=== PATIENT | female | born 1955 | race Caucasian/White ===

== ENCOUNTER 2023-05-19 06:00 | Inpatient (IN) ==
--- NOTE | 2023-05-02 10:51 | PAT Medication Instructions ---
Medication Instructions Date of Service May 02, 2023 Home Medications atorvastatin 20 mg tablet 20 mg PO PM biotin 1 cap PO QPM duloxetine 30 mg capsule,delayed release sprinkle 30 mg PO QAM fiber 1 cap PO QAM gabapentin 300 mg capsule 300 mg PO TID lisinopril 20 mg-hydrochlorothiazide 25 mg tablet 1 tab PO QAM metformin 500 mg tablet 500 mg PO BID multivitamin 1 tab PO QAM STOP taking 2 weeks before surgery (or as soon as possible if surgery is within 2 weeks) biotin 1 cap PO QPM DO NOT take the morning of surgery fiber 1 cap PO QAM lisinopril 20 mg-hydrochlorothiazide 25 mg tablet 1 tab PO QAM metformin 500 mg tablet 500 mg PO BID multivitamin 1 tab PO QAM Take morning of surgery With a small sip of water, OTHERWISE NOTHING TO EAT OR DRINK AFTER MIDNIGHT: duloxetine 30 mg capsule,delayed release sprinkle 30 mg PO QAM gabapentin 300 mg capsule 300 mg PO TID Take evening before surgery atorvastatin 20 mg tablet 20 mg PO PM gabapentin 300 mg capsule 300 mg PO TID metformin 500 mg tablet 500 mg PO BID Other Notes If you have any questions please call us at [phone] or [phone] or [phone] or [phone]
--- NOTE | 2023-05-08 09:51 | Anesthesiology Consultation ---
Date of Service May 08, 2023 Assessment & Plan (1) Encounter for pre-operative examination: - Check BSG AM DOS - Infectious disease screening: Per assessment on 05/08/23: No known infectious disease contacts or current infectious disease symptoms. No noted recent Covid positive test result. - Sinus tachycardia: HR fluctuating between low 100s-110s at PAT visit 05/08/23. Per patient, noted hx of similar issues when ongoing cancer treatment several years ago. Patient scheduled for upcoming PCP preop evaluation. Note written to PCP regarding sinus tachycardia- Awaiting PCP response + surgeon-ordered PCP preop evaluation (Dr. Irwin Mejias, upcoming appt 04/2023). Chart Review Chart Review: Patient seen in Pre Admission Testing Teaching & Discussion Pre-Anesthesia Teaching/Discussion Notes: Instructed NPO after midnight before surgery,except medications with 15 cc of water. Medication instructions provided according to the [facility] guidelines. History Surgery Operation Date: 05/19/23 10:35 Proposed Procedures p L1-L4 Decompression and Fusion, Spinal Cord Monitoring - Serge Vidal, Height/Weight Height: 5 ft 6 in Weight: 81.5 kg Allergies Allergy/AdvReac Type Severity Reaction Status Date / Time sulfamethoxazole Allergy swelling Verified 05/02/23 09:38 [From Bactrim] of eyes, lips trimethoprim [From Bactrim] Allergy swelling Verified 05/02/23 09:38 of eyes, lips Medications Home Medications Medication Instructions Recorded Confirmed Last Taken atorvastatin 20 mg tablet 20 mg PO PM 05/02/23 05/02/23 Unknown biotin 1 cap PO QPM 05/02/23 05/02/23 Unknown duloxetine 30 mg capsule,delayed 30 mg PO QAM 05/02/23 05/02/23 Unknown release sprinkle fiber 1 cap PO QAM 05/02/23 05/02/23 Unknown gabapentin 300 mg capsule 300 mg PO TID 05/02/23 05/02/23 Unknown lisinopril 20 1 tab PO QAM 05/02/23 05/02/23 Unknown mg-hydrochlorothiazide 25 mg tablet metformin 500 mg tablet 500 mg PO BID 05/02/23 05/02/23 Unknown multivitamin 1 tab PO QAM 05/02/23 05/02/23 Unknown Past Medical History Medical History History of blood transfusion In setting of cancer/treatment- History of COVID-19 01/2023 ([facility])- fever, cough, loss of taste/smell > resolved Abnormal pulmonary function test "Resolved" Hx during cancer treatment Spinal stenosis Osteoarthritis DM type 2 (diabetes mellitus, type 2) History of Hodgkin's lymphoma Dx 2018 HLD (hyperlipidemia) HTN (hypertension) Exercise / Class Metabolic Activity III < 4 Walking/Shop/Light housework (uses cane PRN) Past Surgical History Surgical History PONV (postoperative nausea and vomiting) History of left knee replacement History of right knee joint replacement History of appendectomy History of tonsillectomy and adenoidectomy History of cholecystectomy History of laminectomy x2 History of esophagogastroduodenoscopy (EGD) History of colonoscopy History of vascular access device subsequent removal Past Anesthesia History No Hx of Anesthesia Complications * Sister/mother: post-op confusion History of PONV History of PONV and Hx of Motion Sickness (Remote hx) Social History Smoking Status: Former smoker Do You Dip or Chew Tobacco: No Smoking End Date: Quit 8 years ago Hx Alcohol Use: Yes alcohol intake frequency: holidays/special occasions only Hx Substance Use: No substance use type: does not use Review of Systems Patient denies chest pain, shortness of breath, fever, chills, cough, wheezing, palpitations. Physical Exam Vital Signs VITALS BP 101/55 P 104 TEMP 98.8 SP02 96%RA RESP 16 PHYSICAL Full cervical extension range of motion. Full TMJ range of motion. TMD 4 finger breaths Mallampati Score 3 Dentition: upper/lower partial Lungs: clear throughout to auscultation Cardiac: regular rate and rhythm, no murmurs noted Spine: normal Carotid arteries: negative bruit Extremities: no LE edema Lab Results Anesthesia Preop Results Results Anesthesia Widget: WBC 7.12 K/ul (4.8-10.8) 05/08/23 Hgb 13.4 g/dl (12.0-16.0) 05/08/23 Hct 41.6 % (37.0-47.0) 05/08/23 Plt 310 K/uL (130-400) 05/08/23 Na 135 mmol/L (136-145) L 01/11/24 K 3.9 mmol/L (3.5-5.1) 05/08/23 Cl 101 mmol/L (98-107) 05/08/23 CO2 26 mmol/L (21-32) 05/08/23 BUN 18 mg/dl (6-23) 05/08/23 Creat 0.82 mg/dl (0.6-1.2) 05/08/23 Glucose Level 98 mg/dl (70-99(Fasting)) 05/08/23 PT 10.6 Seconds (9.0-12.0) 05/08/23 PTT 25 Seconds (21-31) 05/08/23 INR 1.0 (0.9-1.1) 05/08/23 HA1c 5.7 % (4.5-5.6) H 05/08/23 Urine Color Yellow 05/08/23 Urine Appearance Clear (Clear) 05/08/23 Urine pH 6.5 (4.5-7.5) 05/08/23 Urine Specific [place] 1.010 (1.000-1.030) 05/08/23 Urine Protein Negative (Negative) 05/08/23 Urine Glucose (UA) Negative (Negative) 05/08/23 Urine Ketones Negative (Negative) 05/08/23 Urine Blood Negative (Negative) 05/08/23 Urine Nitrite Negative (Negative) 05/08/23 Urine Bilirubin Negative (Negative) 05/08/23 Urine Urobilinogen Negative (Negative) 05/08/23 Urine Leukocyte Esterase Negative (Negative) 05/08/23 Blood Type O Negative 05/08/23 Antibody Screen NEGATIVE 05/08/23 Testing Electrocardiogram Date: 05/08/23 ST at 108bpm. "Otherwise normal ECG" Chest X-Ray Date: 05/08/23 FINDINGS: Lung volumes are normal. Lungs are clear. There is no pneumothorax or pleural effusion. Cardiac size is normal. Mediastinal contours are normal. There is no evidence for pulmonary edema. IMPRESSION: No acute cardiopulmonary findings.
[~2023-05-19 06:00] MED LIST: ACETAMINOPHEN 500 MG TAB PO SCH; GABAPENTIN 300 MG CAP PO SCH; LR 15ML/HR IV SCH; LR 60ML/HR IV SCH; ceFAZolin 2000MG 2,000 MG/15 ML SYR IV SCH
--- OUTSIDE RECORDS SUMMARY | 2023-05-19 06:05 | External Medical Summary | Continuity of Care Document ---
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 Josias Mejias MD Onset: 10/27/2019 Neurogenic claudication Irwin Mejias MD Onset: 0 10/27/2019 Hodgkin's disease of extrano ger AND/OR solid organ site Irwin Mejias MD Onset: 11/06/2020 Anxiety state NAZARIO Workman Onset: 04/28 Type 2 diabetes mellitus NAZARIO Workman On set: 05/14/2023 Hodgkin's disease (clinical) Irwin Mejias MD Ons et: 11/21/2022 Social History Type Date Description Comments Sex Unknown Cigarette Use 12/09/2016 Quit - Age 58 Tobacco Use Reviewed: 10/09/16 Never Smoked Cigars Tobacco Use Reviewed: 10/09/16 Never Smoked A Pipe Smoking Status Reviewed: 05/14/23 Never Smoked A Pipe Smokeless Tobacco 10/09/2016 Never Used Smokeless To bacco ETOH Use Denies alcohol use Recreational Drug Use Denies Drug Use Exercise Type/Frequency Does not exercise Allergies and adverse reactions Active Allergies Criticality Reaction | Severity Comments Date Bactrim Unable to assess criticality Urticaria | Moderate 12/27/2016 Inactive Allergies NKDA Unable to assess criticality 06/06/2010 Medications Active Medications SIG Qnty Indications Order ing Provider Date [id number] Capsules Take 1 Capsule By Mouth Every Night AT Bedtime For 1 Week, Then 1 Capsule Twice A Day For 1 Week, Then 1 Capsule Three Times A Day Thereafter 90caps M48.062 Irwin Mejias MD 11/21/[id number] Part Take 1 Capsule By Mouth Once Daily 30caps F41.9 Irwin Mejais MD 11/21/2022 Lorazepam0.5mg Tablets 1/2 - 1 by mouth every 6 hours as needed for travel anxiety 10tabs F41.9 Micah Jane MD 11/06/2020 Atorvastatin [id number] Tablets Take One Tablet By Mouth Every Night 90tabs E11.65 Irwin Mejias MD 05/09/2020 Lisinopril-Hydrochlo [id number] Tablets Take 1 Tablet By Mouth Once Daily 90tabs I10 Irwin Mejias MD 02/24/2020 Metformin [id number] Tablets Take 1 Tablet By Mouth Twice Daily 180tabs E11.65 Irwin Mejias MD 10/27/2019 Multivitamin AdultTablets 1 by mouth every day Unknown Medications Administered in Office Medication SIG Qnty Indications Ordering Provider Date Injection Kenalog 10 MG [facility] [id number] Irwin Mejias MD 08/16 Influ A (H1N1) VaccineInjection Irwin Mejias MD 04/13/2009 Immunizations CPT Code Status Date Vaccine Lot # [id number] Given 02/20/2022 Moderna Sars-Co v-2 (Covid-19) Vaccine, BiValent Booster [id number] Given 02/20/2022 Influenza Vaccine High Do se 0.5ML Age 65 & > [id number] 60182 Given 09/16/2021 Moderna Covid-1 9 Vaccine 50mcg Booster-EMR Doc Only [id number] Given 03/06/2021 Moderna Sars-Co v-2 (Cov-19) vacc,100 mcg/ 0.5 mL 12Y+EMR Doc Only [id number] Given 06/23/2020 Moderna Sars-Co v-2 (Cov-19) vacc,100 mcg/ 0.5 mL 12Y+EMR Doc Only [id number] 33093 Given 05/26/2020 Moderna Sars-Co v-2 (Cov-19) vacc,100 mcg/ 0.5 mL 12Y+EMR Doc Only [id number] 11563 Given 01/27/2020 Influenza Vaccine High Do se 0.5ML Age 65 & > [id number] 66280 Given 10/27/2019 Pneumococcal Vaccine/Pneu movax 23 [id number] 20499 Given 10/28/2018 Pneumococcal Conjugate-Pr evnar 13 [id number] 44904 Given 03/17/2017 Influenza Virus Vaccine, Quadrivalent, Im Use [id number] 54299 Given 01/10/2015 Influenza Virus Vaccine, Quadrivalent, Im Use 52141 Given 03/10/2013 Influenza Vac, Split 3 Yr s And Up [id number] 64048 Given 03/11/2012 Influenza Vac, Split 3 Yr s And Up [id number] Refused 10/28/2018 Pneumococcal Conjugate-Pr evnar 13 Vital Signs Date Vital Result Comment 05/14/2023 11:17am BP Systolic 122 mmHg BP Diastolic 84 mmHg Body Temperature 97.3 F Heart Rate 86 /min Respiratory Rate 16 /min Weight 180.00 lb Weight 81.648 kg O2 % BldC Oximetry 99 % 12/25/2022 9:59am BP Systolic 116 mmHg BP Diastolic 80 mmHg Heart Rate 104 /min Respiratory Rate 18 /min Weight 174.00 lb Weight 78.926 kg Height 65.5 inches 5'5.50" BMI (Body Mass Index) 28.5 kg/m2 O2 % BldC Oximetry 99 % [place] Body Weight 125 lb Results Test Acquired Date Facility Test Result H/L Range N ote General Health Panel 05/07/2023 [facility] [address] [place] [address] [phone] TSH 1.37 uIU/mL 0.50-6.00 Comp. Met 05/07/2023 [facility] [address] [place], [place] [id number] [phone] Glucose 109 mg/dL 70-110 BUN 19 mg/dL 6-25 Creatinine 0.9 mg/dL 0.5-1.2 Sodium 138 mEq/L 135-145 Potassium 4.8 mEq/L 3.5-5.0 Chloride 99 mEq/L 95-107 Co-2 26 mEq/L 24-31 Alk Phos 100 IU/L 43-122 Alt(SGPT) 22 IU/L 10-40 Ast(Sgot) 21 IU/L 3-42 T.Bilirubin 0.6 mg/dL 0.1-1.3 Calcium 10.1 mg/dL 8.5-10.6 Tot.Protein 7.4 g/dL 5.8-8.0 Albumin 4.7 g/dL 3.0-5.2 Globulin 2.7 g/dL 2.0-3.4 GFR 66 ML/MIN/1.73SQM >60 Lipid 05/07/2023 [facility] [address] [place] [address] [phone] Cholesterol 127 mg/dL 0-200 1 Triglyceride 151 mg/dL High 0-150 2 HDLD 44 mg/dL See Comment 3 Measured LDL 79 mg/dL 0-130 4 Calc VLDL 30.2 mg/dL See Comment 5 Chol/HDL 2.9 RATIO See Comment 6 Non-HDL 83 mg/dL See Comment 7 Hba1c 05/07/2023 [facility] [address] [place] [address] [phone] A1c 5.60 % 4.70-6.50 8 CBC No Diff 05/07/2023 [facility] [address] [place], [place] [id number] [phone] WBC 8.1 10^3/M3 3.1-9.2 RBC 4.99 10^6/M3 3.70-5.50 HGB 14.2 GR/DL 11.5-16.1 HCT 42.5 % 34.5-47.8 MCV 85.2 CUMICR 82.6-95.8 MCH 28.5 PICOGR 27.9-32.9 MCHC 33.5 % 32.6-35.4 RDW 16.4 % High 11.4-14.6 PLT 307 10^3/M3 140-350 MPV 8.0 CUMICR 7.0-10.6 Manual Diff 05/07/2023 [facility] [address] [place] [address] [phone] Seg 51 45-75 Lymph 35 20-45 [place]win 13 High 0-10 Eosin 1 0-6 Baso 1 0-2 RBC Morphology NORMAL Microalbumin Urine 05/07/2023 [facility] [address] [place], [place] [id number] [phone] Urine Creat 31 mg/dL Comment Microalbumin <0.7 mg/dL 0.0-1.8 9 ug/mgCREATININE COMMENT ug/mg Low 0-29 10 Xray 01/06/2023 [facility] [address] [place] [address] [phone] Mammography Screening Bilateral 11/13/2022 pending Comp. Met 11/13/2022 [facility] [address] [place] [address] [phone] Glucose 89 mg/dL 70-110 BUN 18 mg/dL 6-25 Creatinine 0.8 mg/dL 0.5-1.2 Sodium 137 mEq/L 135-145 Potassium 4.1 mEq/L 3.5-5.0 Chloride 99 mEq/L 95-107 Co-2 26 mEq/L 24-31 Alk Phos 89 IU/L 43-122 Alt(SGPT) 18 IU/L 10-40 Ast(Sgot) 17 IU/L 3-42 T.Bilirubin 0.7 mg/dL 0.1-1.3 Calcium 9.7 mg/dL 8.5-10.6 Tot.Protein 6.9 g/dL 5.8-8.0 Albumin 4.6 g/dL 3.0-5.2 Globulin 2.3 g/dL 2.0-3.4 GFR 76 ML/MIN/1.73SQM >60 Hba1c 11/13/2022 [facility] [address] [place] [address] [phone] A1c 5.50 % 4.70-6.50 11 Lipid 11/13/2022 [facility] [address] [place] [address] [phone] Cholesterol 115 mg/dL 0-200 12 Triglyceride 104 mg/dL 0-150 13 HDLD 53 mg/dL See Comment 14 Measured LDL 54 mg/dL 0-130 15 Calc VLDL 20.8 mg/dL See Comment 16 Chol/HDL 2.2 RATIO See Comment 17 Non-HDL 62 mg/dL See Comment 18 Laboratory test finding 11/13/2022 [facility] [address] [place] [address] [phone] FRT4 1.23 ng/dL 0.75-1.54 CBC No Diff 11/13/2022 [facility] [address] [place] [address] [phone] WBC 7.2 10^3/M3 3.1-9.2 RBC 4.71 10^6/M3 3.70-5.50 HGB 13.7 GR/DL 11.5-16.1 HCT 39.7 % 34.5-47.8 MCV 84.4 CUMICR 82.6-95.8 MCH 29.1 PICOGR 27.9-32.9 MCHC 34.4 % 32.6-35.4 RDW 16.4 % High 11.4-14.6 PLT 217 10^3/M3 140-350 MPV 7.7 CUMICR 7.0-10.6 Manual Diff 11/13/2022 [facility] [address] [place] [address] [phone] Seg 57 45-75 Lymph 34 20-45 Gladwin 8 0-10 Eosin 1 0-6 Baso 0 0-2 General Health Panel 11/13/2022 [facility] [address] [place] [address] [phone] TSH 1.14 uIU/mL 0.50-6.00 1 CHOLESTEROL Less than 200mg/dl Low risk 201-239 mg/dl Borderline risk Equal to or greater 240mg/dl High risk 2 TRIGLYCERIDES Less than 150mg/dl Normal 150-199mg/dl Borderline 200-499mg/dl High Greater than 500mg/dl Very High 3 HDL <40mg/dl Elevated Risk 41-59mg/dl Risk >=60mg/dl Least Risk 4 LDL <100mg/dl Optimal 100-129mg/dl Near Optimal 130-159mg/dl Borderline High 160-189mg/dl High >=190 Very High 5 VLDL Less than 30mg/dl Normal 6 CHOL/HDL <4.0 Optimal 4.0-5.0 Borderline >6.0 High Risk 7 NON-HDL 30mg/dl higher than LDL Target 8 MEAN GLUCOSE IN mg/d L/A1c% POOR CONTROL FAIR CONTROL GOOD CONTROL EXCELLENT CONTROL 360-14 210-9 180-8 120-6 330-13 150-7 90-5 300-12 270-11 240-10 9 *[facility] USES MICROALBUMIN/CREATINE RATIO : *<30 ug/mg CREATININE IS CLASSIFIED NORMAL *30-300 ug/mg CREATININE IS CLASSIFIED CLINICAL MICROALBUMINURIA *>300 ug/mg CREATININE IS CLASSIFIED CLINICAL ALBUMINURIA CLASSIFICATION OF A PATIENT SHOULD BE BASED ON TWO OF THREE ABNORMAL RESULTS COLLECTED WITHIN A 3 TO 6 MONTH TIME FRAME* 10 CANNOT CALCULATE RATIO WHEN MALB < 0.7 11 MEAN GLUCOSE IN mg/d L/A1c% POOR CONTROL FAIR CONTROL GOOD CONTROL EXCELLENT CONTROL 360-14 210-9 180-8 120-6 330-13 150-7 90-5 300-12 270-11 240-10 12 CHOLESTEROL Less than 200mg/dl Low risk 201-239 mg/dl Borderline risk Equal to or greater 240mg/dl High risk 13 TRIGLYCERIDES Less than 150mg/dl Normal 150-199mg/dl Borderline 200-499mg/dl High Greater than 500mg/dl Very High 14 HDL <40mg/dl Elevated Risk 41-59mg/dl Risk >=60mg/dl Least Risk 15 LDL <100mg/dl Optimal 100-129mg/dl Near Optimal 130-159mg/dl Borderline High 160-189mg/dl High >=190 Very High 16 VLDL Less than 30mg/dl Normal 17 CHOL/HDL <4.0 Optimal 4.0-5.0 Borderline >6.0 High Risk 18 NON-HDL 30mg/dl higher than LDL Target Procedures Date Code Description Status 05/07/2023 16649 Venipuncture Routine Complet ed 01/01/2023 [id number] Mammogram Completed 11/21/2022 3078F PVRP Diastolic BP <80 mmHg C ompleted 11/21/2022 3074F PVRP Systolic BP <130 mmHg C ompleted 11/21/2022 3044F PVRP HGB-A1c <7.0% Completed 11/21/2022 1101F PT SCR Future Fall Risk, No Fall Or 1 W/Out Injury Completed 11/21/2022 1090F Presence/Absence Urinary Inc ontinence Assessed Completed 11/13/2022 51853 Venipuncture Routine Complet ed 02/13/2017 [id number] Colonoscopy Completed Medical Devices Description No Information Available Encounters Type Date Location Provider Dx Diagnosis Office Visit 05/14/2023 11:30a NAZARIO Desir M48.062 Spinal stenosis, lumbar region with neurogenic claudication Z01.818 Encounter for other preprocedural examination I10 Essential (primary) hypertension E11.9 Type 2 diabetes anjel itus without complications F41.9 Anxiety disorder, un specified C81.90 Hodgkin lymphoma, un specified, unspecified site 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, chewing tobacco, in remission Office Visit 12/25/2022 10:00a Carl Mejias MD M4 8.062 Spinal stenosis, lumbar region with neurogenic claudication F41.9 Anxiety disorder, un specified Office Visit 11/21/2022 9:45a Carl Mejias MD I10 Essential (primary) hypertension M48.062 Spinal stenosis, lum bar region with neurogenic claudication C81.90 Hodgkin lymphoma, un specified, unspecified site B02.23 Postherpetic polyneu ropathy E11.9 Type 2 diabetes anjel itus without complications F41.9 Anxiety disorder, un specified Z00.01 Encounter for genera l adult medical exam w abnormal findings Assessments Date Code Description Provider 05/14/2023 M48.062 Spinal stenosis, lumbar region with neurogenic claudication NAZARIO Workman 05/14/2023 Z01.818 Encounter for other preproce dural examination NAZARIO Workman 05/14/2023 I10 Essential (primary) hyperten antolin NAZARIO Workman 05/14/2023 E11.9 Type 2 diabetes mellitus without complications NAZARIO Workman 05/14/2023 F41.9 Anxiety disorder, unspecifie d NAZARIO Workman 05/14/2023 C81.90 Hodgkin lymphoma , unspecified, unspecified site NAZARIO Workman 05/14/2023 F17.221 Nicotine depende nce, chewing tobacco, in remission NAZARIO Workman 05/07/2023 I10 Essential (primary) pat Mejias MD 05/07/2023 I10 Essential (primary) pat Henry Nurse 05/07/2023 E11.9 Type 2 diabetes mellitus without complications Irwin Mejias MD 05/07/2023 E11.9 Type 2 diabetes mellitus without complications Carl Nurse 12/25/2022 M48.062 Spinal stenosis, lumbar region with neurogenic claudication Irwin Mejias MD 12/25/2022 F41.9 Anxiety disorder, unspecifie d Irwin Mejias MD 11/21/2022 I10 Essential (primary) pat Mejias MD 11/21/2022 M48.062 Spinal stenosis, lumbar region with neurogenic claudication Irwin Mejias MD 11/21/2022 C81.90 Hodgkin lymphoma , unspecified, unspecified site Irwin Mejias MD 11/21/2022 B02.23 Postherpetic polyneuropathy Irwin Mejias MD 11/21/2022 E11.9 Type 2 diabetes mellitus without complications Irwin Mejias MD 11/21/2022 F41.9 Anxiety disorder, unspecifie d Irwin Mejias MD 11/21/2022 Z00.01 Encounter for [facility] adult medical examination with abnormal findings Irwin Mejias MD 11/13/2022 E11.9 Type 2 diabetes mellitus without complications Irwin Mejias MD 11/13/2022 E11.9 Type 2 diabetes mellitus without complications Carl Nurse 11/13/2022 E05.90 Thyrotoxicosis, unspecified without thyrotoxic crisis or storm Irwin Mejias MD 11/13/2022 E05.90 Thyrotoxicosis, unspecified without thyrotoxic crisis or storm Carl Nurse Plan of Treatment 05/14/2023 - NAZARIO Workman* M48.062 Spinal stenosis, lumbar region with neurogenic claudication* Comments:* -Proposed procedure is L1-L4 Decompression and Fusion * Z01.818 Encounter for other preprocedural examination* Comments:* - After reviewing patient's history, performing a thorough H&P and reviewing labs and EKG,patient is at an acceptable risk of proposed procedure scheduled on 05/19/[address] Vidal at [facility] in [place], [place] * Follow up:* as needed * I10 Essential (primary) hypertension* Comments:* 1. Controlled on current medications. 2. Continue medications as prescribed. 3- Increases patient's risk for Surgical Procedure. * E11.9 Type 2 diabetes mellitus without complications* Comments:* 1- A1C 5.7% FBG 98 2- Well controlled on current medication. 3- Continue medications as pr escribed. 4- Increases patient's risk for poor healing after Surgical Procedure. * F41.9 Anxiety disorder, unspecified* Comments:* 1- Controlled on current medication 2- Continue medication as prescribed 3- Advised thatif patient would like to come off medication to wait until after surgery and recovery, then re-address the idea of coming of medication and come up with a schedule for doing so. Patient verbalized understanding. * C81.90 Hodgkin lymphoma, unspecified, unspecified site* Comments:* 1- Currently in remission 2- Followed by Oncology Annually. 3- No symptoms at this time. 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
--- OUTSIDE RECORDS SUMMARY | 2023-05-19 06:06 | External Medical Summary | Continuity of Care Document ---
Author Name Unknown Organization [facility] Address [address] [place] [address] Phone [phone] Care Team Providers Care Services Engineer Name Role Phone Douglas Simon MD Care Team Information Receive r [phone] Problems Active Problems Provider Date Benign essential [...] SIG Qnty Indications Order ing Provider Date [id number] Capsules Take 1 Capsule By Mouth Every Night AT Bedtime For 1 Week, Then 1 Capsule Twice A Day For 1 Week, Then 1 Capsule Three Times A Day Thereafter 90caps M48.062 Irwin Mejias MD 11/21/[id number] Part Take 1 Capsule By Mouth Once Daily 30caps F41.9 Irwin Mejias MD 11/21/2022 Lorazepam0.5mg Tablets 1/2 - 1 by mouth every 6 hours as needed for travel anxiety 10tabs F41.9 Micah Jane MD 11/06/2020 Atorvastatin [id number] Tablets Take One Tablet By Mouth Every Night 90tabs E11.65 Irwin Mejias MD 05/09/2020 Lisinopril-Hydrochlo [id number] Tablets Take 1 Tablet By Mouth Once Daily 90tabs I10 Irwin Mejias MD 02/24/2020 Metformin [id number] Tablets Take 1 Tablet By Mouth Twice Daily 180tabs E11.65 Irwin Mejias MD 10/27/2019 Multivitamin AdultTablets 1 by mouth every day Unknown Medications Administered in Office Medication SIG Qnty Indications Ordering Provider Date Injection Kenalog 10 MG [facility] [id number] Irwin Mejias MD 08/16 Influ A (H1N1) VaccineInjection Irwin Mejias MD 04/13/2009 Immunizations CPT Code Status Date Vaccine Lot # [id number] Given 02/20/2022 Moderna Sars-Co v-2 (Covid-19) Vaccine, BiValent Booster [id number] Given 02/20/2022 Influenza Vaccine High Do se 0.5ML Age 65 & > [id number] 15834 Given 09/16/2021 Moderna Covid-1 9 Vaccine 50mcg Booster-EMR Doc Only [id number] Given 03/06/2021 Moderna Sars-Co v-2 (Cov-19) vacc,100 mcg/ 0.5 mL 12Y+EMR Doc Only [id number] Given 06/23/2020 Moderna Sars-Co v-2 (Cov-19) vacc,100 mcg/ 0.5 mL 12Y+EMR Doc Only [id number] 36764 Given 05/26/2020 Moderna Sars-Co v-2 (Cov-19) vacc,100 mcg/ 0.5 mL 12Y+EMR Doc Only [id number] 57116 Given 01/27/2020 Influenza Vaccine High Do se 0.5ML Age 65 & > [id number] 57170 Given 10/27/2019 Pneumococcal Vaccine/Pneu movax 23 [id number] 02750 Given 10/28/2018 Pneumococcal Conjugate-Pr evnar 13 [id number] 45862 Given 03/17/2017 Influenza Virus Vaccine, Quadrivalent, Im Use [id number] 16162 Given 01/10/2015 Influenza Virus Vaccine, Quadrivalent, Im Use 48281 Given 03/10/2013 Influenza Vac, Split 3 Yr s And Up [id number] 76871 Given 03/11/2012 Influenza Vac, Split 3 Yr s And Up [id number] Refused 10/28/2018 Pneumococcal Conjugate-Pr evnar 13 Vital [...] kg/m2 O2 % BldC Oximetry 99 % [place] Body Weight 125 lb Results Test Acquired Date Facility Test Result H/L Range N ote General Health Panel 05/07/2023 [facility] [address] [place] [address] [phone] TSH 1.37 uIU/mL 0.50-6.00 Comp. Met 05/07/2023 [facility] [address] [place], [place] [id number] [phone] Glucose 109 mg/dL 70-110 BUN 19 mg/dL [...] 2.0-3.4 GFR 66 ML/MIN/1.73SQM >60 Lipid 05/07/2023 [facility] [address] [place] [address] [phone] Cholesterol 127 mg/dL 0-200 1 Triglyceride 151 mg/dL High 0-150 2 HDLD 44 mg/dL See Comment 3 Measured LDL 79 mg/dL 0-130 4 Calc VLDL 30.2 mg/dL See Comment 5 Chol/HDL 2.9 RATIO See Comment 6 Non-HDL 83 mg/dL See Comment 7 Hba1c 05/07/2023 [facility] [address] [place] [address] [phone] A1c 5.60 % 4.70-6.50 8 CBC No Diff 05/07/2023 [facility] [address] [place], [place] [address] [phone] WBC 8.1 10^3/M3 3.1-9.2 RBC 4.99 10^6/M3 3.70-5.50 HGB 14.2 GR/DL 11.5-16.1 HCT 42.5 % 34.5-47.8 MCV 85.2 CUMICR 82.6-95.8 MCH 28.5 PICOGR 27.9-32.9 MCHC 33.5 % 32.6-35.4 RDW 16.4 % High 11.4-14.6 PLT 307 10^3/M3 140-350 MPV 8.0 CUMICR 7.0-10.6 Manual Diff 05/07/2023 [facility] [address] [place] [address] [phone] Seg 51 45-75 Lymph 35 20-45 Kimball 13 High 0-10 Eosin 1 0-6 Baso 1 0-2 RBC Morphology NORMAL Microalbumin Urine 05/07/2023 [facility] [address] [place], [place] [id number] [phone] Urine Creat 31 mg/dL Comment Microalbumin <0.7 mg/dL 0.0-1.8 9 ug/mgCREATININE COMMENT ug/mg Low 0-29 10 [facility]ray [facility]20[facility] [address] [place] [address] [phone] Mammography Screening Bilateral 11/13/2022 pending Comp. Met 11/13/2022 [facility] [address] [place] [address] [phone] Glucose 89 mg/dL 70-110 BUN 18 mg/dL [...] 2.0-3.4 GFR 76 ML/MIN/1.73SQM >60 Hba1c 11/13/2022 [facility] [address] [place] [address] [phone] A1c 5.50 % 4.70-6.50 11 Lipid 11/13/2022 [facility] [address] [place] [address] [phone] Cholesterol 115 mg/dL 0-200 12 Triglyceride 104 mg/dL 0-150 13 HDLD 53 mg/dL See Comment 14 Measured LDL 54 mg/dL 0-130 15 Calc VLDL 20.8 mg/dL See Comment 16 Chol/HDL 2.2 RATIO See Comment 17 Non-HDL 62 mg/dL See Comment 18 Laboratory test finding 11/13/2022 [facility] [address] [place] [address] [phone] FRT4 1.23 ng/dL 0.75-1.54 CBC No Diff 11/13/2022 [facility] [address] [place] [address] [phone] WBC 7.2 10^3/M3 3.1-9.2 RBC 4.71 10^6/M3 3.70-5.50 HGB 13.7 GR/DL 11.5-16.1 HCT 39.7 % 34.5-47.8 MCV 84.4 CUMICR 82.6-95.8 MCH 29.1 PICOGR 27.9-32.9 MCHC 34.4 % 32.6-35.4 RDW 16.4 % High 11.4-14.6 PLT 217 10^3/M3 140-350 MPV 7.7 CUMICR 7.0-10.6 Manual Diff 11/13/2022 [facility] [address] [place] [address] [phone] Seg 57 45-75 Lymph 34 20-45 Kimball 8 0-10 Eosin 1 0-6 Baso 0 0-2 General Health Panel 11/13/2022 [facility] [address] [place] [address] [phone] TSH 1.14 uIU/mL 0.50-6.00 1 CHOLESTEROL Less [...] 150-7 90-5 300-12 270-11 240-10 9 *[facility] USES MICROALBUMIN/CREATINE RATIO : [...] Target Procedures Date Code Description Status 05/07/2023 31729 Venipuncture Routine Complet ed 01/01/2023 06174853 Mammogram Completed 11/21/2022 3078F PVRP Diastolic BP <80 mmHg C ompleted 11/21/2022 3074F PVRP Systolic BP <130 mmHg C ompleted 11/21/2022 3044F PVRP HGB-A1c <7.0% Completed 11/21/2022 1101F PT SCR Future Fall Risk, No Fall Or 1 W/Out Injury Completed 11/21/2022 1090F Presence/Absence Urinary Inc ontinence Assessed Completed 11/13/2022 68484 Venipuncture Routine Complet ed 02/13/2017 40209015 Colonoscopy Completed Medical Devices Description No Information [...] Irwin Mejias MD 11/21/2022 Z00.01 Encounter for [facility] adult medical examination with abnormal findings Irwin [...] scheduled on 05/19/[address] Vidal at [facility] in [place], [place] * Follow up:* as needed * [...]
[2023-05-19] MEDS ORDERED: DexMEDEtomidine HCL IV 100 MCG/ML VIAL IV ONE (06:59)
[2023-05-19] MEDS ORDERED: FAMOTIDINE/PF 20 MG/2 ML VIAL IV ONE (06:59)
[2023-05-19] MEDS ORDERED: ONDANSETRON INJ 2 MG/ML 2 ML VIAL IV PRN ×2 (07:05→11:17)
[2023-05-19] MEDS ORDERED: ePHEDrine sulfate 50 MG/ML AMP IV PRN (07:05)
[2023-05-19] MEDS ORDERED: ATROPINE SULFATE 0.1 MG/ML 10ML SYR IV PRN (07:05)
[2023-05-19] MEDS ORDERED: fentaNYL citrate PF 100 MCG/2 ML VIAL IV PRN (07:05)
[2023-05-19] MEDS ORDERED: HYDROmorphone INJ 2 MG/ML SYR/VIAL IV PRN (07:05)
[2023-05-19] MEDS ORDERED: fentaNYL citrate PF 100 MCG/2 ML VIAL ONE (07:09)
[2023-05-19] MEDS ORDERED: HYDROmorphone INJ 2 MG/ML SYR/VIAL ONE (07:09)
[2023-05-19] MEDS ORDERED: MIDAZOLAM HCL 1 MG/ML 2ML VIAL ONE (07:09)
[2023-05-19] MEDS ORDERED: BUPIVACAINE/EPINEPHRINE 0.5% MPF 1:200,000 30 ML VIAL ONE (07:24)
[2023-05-19] MEDS ORDERED: ceFAZolin 330 MG/ML 1 GM VIAL ONE (07:24)
--- NOTE | 2023-05-19 07:38 | History & Physical Bridge Note ---
Date of Service May 19, 2023 History & Physical Bridge Note I have examined the patient, reviewed the History & Physical and in the interval since the performance of the History & Physical I have noted the following changes of clinical significance: no changes noted
--- NOTE | 2023-05-19 07:39 | History & Physical Report ---
Date of Service May 19, 2023 Assessment & Plan (1) Neurogenic claudication due to lumbar spinal stenosis: Plan: L1-L4 decompression and fusion History of Present Illness Chief Complaint: Back and leg pain Primary Care Provider: Irwin Mejias MD This is a 67-year-old female who presents with chronic persistent back and leg pain after failing course of nonoperative care is here for surgical intervention. Allergies Allergy/AdvReac Type Severity Reaction Status Date / Time sulfamethoxazole Allergy swelling Verified 05/19/23 06:40 [From Bactrim] of eyes, lips trimethoprim [From Bactrim] Allergy swelling Verified 05/19/23 06:40 of eyes, lips Home Medications Medication Instructions Recorded Confirmed Type atorvastatin 20 mg tablet 20 mg PO PM 05/02/23 05/19/23 History biotin 1 cap PO QPM 05/02/23 05/19/23 History duloxetine 30 mg capsule,delayed 30 mg PO QAM 05/02/23 05/19/23 History release sprinkle fiber 1 cap PO QAM 05/02/23 05/19/23 History gabapentin 300 mg capsule 300 mg PO TID 05/02/23 05/19/23 History lisinopril 20 1 tab PO QAM 05/02/23 05/19/23 History mg-hydrochlorothiazide 25 mg tablet metformin 500 mg tablet 500 mg PO BID 05/02/23 05/19/23 History multivitamin 1 tab PO QAM 05/02/23 05/19/23 History Past Med/Surg History Medical History History of blood transfusion In setting of cancer/treatment- 2017/2018 History of COVID-19 01/2023 ([facility])- fever, cough, loss of taste/smell > resolved Abnormal pulmonary function test "Resolved" Hx during cancer treatment Spinal stenosis Osteoarthritis DM type 2 (diabetes mellitus, type 2) History of Hodgkin's lymphoma Dx 2018 HLD (hyperlipidemia) HTN (hypertension) Surgical History PONV (postoperative nausea and vomiting) History of left knee replacement History of right knee joint replacement History of appendectomy History of tonsillectomy and adenoidectomy History of cholecystectomy History of laminectomy x2 History of esophagogastroduodenoscopy (EGD) History of colonoscopy History of vascular access device subsequent removal Social History Smoking Status: Former smoker Smoking End Date: Quit 8 years ago; Second Hand Exposure: No; Do You Dip or Chew Tobacco: No; Tobacco Cessation Education Requested by Patient: No Hx Alcohol Use: Yes Hx Substance Use: No Preferred Language: Sudanese Communication Ability: Effective X Ray Consultant Required: No Beliefs That Will Affect Care: None and Hindu Hindu Beliefs: Gnosticist Current Living Situation: Alone Other Information That Helps Us Care for You: No Feels Safe at Home: Yes Safety Concerns: Feels Safe At This Time Assistive Devices: Cane, Denture - Upper, Denture - Lower and Glasses Assistive Devices Comment: upper/lower partials Physical Exam Physical Exam: Patient is alert and oriented Heart regular rhythm Lungs clear Results & Data Results & Data Vital Signs (Past 12 Hours) Vital Signs Temp Pulse Resp BP Pulse Ox O2 Del Method 05/19/23 06:46 37.1 C 97 H 20 161/73 H 100 Room Air
[2023-05-19] MEDS ORDERED: ONDANSETRON INJ 2 MG/ML 2 ML VIAL ONE (08:17)
[2023-05-19] MEDS ORDERED: DEXAMETHASONE SOD INJ 4 MG/ML VIAL ONE (08:17)
[2023-05-19] MEDS ORDERED: LIDOCAINE 2% 2 ML VIAL/AMP(20MG/ML) INFIL ONE (08:17)
[2023-05-19] MEDS ORDERED: ROCURONIUM BROMIDE 10 MG/ML 5 ML VIAL IV ONE (08:17)
[2023-05-19] MEDS ORDERED: PHENYLEPHRINE 100MCG/ML 10ML SYR IV ONE ×2 (08:17→09:46)
[2023-05-19] MEDS ORDERED: LARYING-O-JET KIT (LTA) ONE (08:17)
[2023-05-19] MEDS ORDERED: diphenhydrAMINE 50 MG/ML VIAL ONE (08:17)
[2023-05-19] MEDS ORDERED: PROPOFOL IV EMULSION 10 MG/ML 20 ML VIAL IV ONE (08:17)
[2023-05-19] MEDS ORDERED: FLOSEAL HEMOSTATIC MATRIX 10ML TOP ONE (08:43)
[2023-05-19] MEDS ORDERED: SUGAMMADEX SODIUM 200 MG/2 ML VIAL IV ONE (09:56)
--- NOTE | 2023-05-19 10:04 | Operative Report ---
Post Operative Report Pre & Post Diagnosis Operation Date: 05/19/23 07:45 Pre-Op Diagnosis: Lumbar Region Spondylolisthesis, Spinal Stenosis Post-Op Diagnosis: Lumbar Region Spondylolisthesis, Spinal Stenosis I identified the patient and participated in the time-out.: Yes Procedure Operation Date: 05/19/23 07:45 Actual Procedures #1 lumbar decompression bilaterally facetectomies and foraminotomies L1-L2, L2- L3 and L3-L4. #2 posterior spinal fusion L2 1 to L4. #3 placement posterior segmental instrumentation L1-L4. #4 interbody fusion L4-L3 L3-L4. #5 placement of Spira 11 by 26 mm at L2-L3 and 12 x 26 mm at L3-L4. #6 placement locally harvested morselized autograft in the posterior gutters. #7 placement of I factor in the interbody space and infuse collagen sponge combined with Koros bone graft in the posterior lateral gutters. Surgeon Serge Vidal, DO Computer Numerical Control Operator Vianey Byrd Estimated Blood Loss 50 Findings Consistent with Post-Op Diagnosis Specimens None Indications This is a 67-year-old female who presents above-mentioned diagnosis after failed course of nonoperative care is here for surgical invention. Description of Procedure Patient identified informed consent obtained. Patient was then taken to the operative suite underwent patient placed in a prone position inject stable topicals and frame. All bony prominences well-padded eyes inspected to ensure no external precipice spinal. This point lumbar spine was prepped and draped sterile fashion. Sharp dissection with the assistance of Bovie cautery to form down to exposing the lamina and transverse processes of L1 L2-L3-L4 bilaterally. For calcified fashion complete laminectomy of L3 L2 and L1 was performed including bilateral medial facetectomies and foraminotomies addressing severe spinal stenosis. Pedicle screws were then placed in L1 L2-L3-L4 bilaterally with assistance of fluoroscopy and the properly sized cecilia placed. By way of a transforaminal approach on the left complete discectomy of L3-L4 was performed endplates guarded to subcortical bleeding bone and a 12 x 26 mm Spira cage with I factor tapped in position. Then proceeded to L to L3 and again by way of a transforaminal approach on the left complete discectomy performed endplates guarded to subcortical and bone 11 x 26 mm Spira cage filled I factor tapped in position. The rods were then compressed locked spine position bilaterally. The transverse processes of L1 L2-L3-L4 burred to subcortical bleeding bone. Infuse collagen sponge, with Koros and local autograft placed in the posterior gutters. 15 round KIRSTIE drain inserted. Incision was then closed with 1 Vicryl and fascia 2-0 Vicryl subcutaneously and 4 Monocryl for fascial closure. Steri-Strips sterile dressing placed. Patient waken taken to PACU in stable condition. Please note spinal cord monitoring was utilized at the procedure no changes noted. Lastly Vianey Byrd was present at the entire surgeon while the patient positioning complex portion of the surgery and possible closure. I attest to the content of the Intraoperative Record and any orders documented therein. Any exceptions are noted below.
--- NOTE | 2023-05-19 10:18 | Fluoroscopy Report ---
FL lumbar spine 2-3V CLINICAL HISTORY: L1-L4 DECOMPRESSION AND FUSION COMPARISON STUDY: None. FLUOROSCOPY TIME: 26 seconds. Ka, r: 23.35 mGy FLUOROSCOPIC IMAGES: 3 FINDINGS: Fluoroscopy was provided during posterior decompression with L2-L3 and L3-L4 discectomies w ith interbody spacer placement. Bilateral pedicle screw fusion from L1 through L4 is noted. There are interconnecting rods. Hardware is intact. IMPRESSION: Fluoroscopy provided during L1-L4 decompression and fusion with L2-L3 and L3-L4 discectom ies. ACT 112: Negative or not required by law. Electronically signed by: Nader Leonard M.D. 05/19/2023 10:17 AM
[2023-05-19] MEDS ORDERED: PROMETHAZINE HCL 12.5 MG in SODIUM CHLORIDE 0.9% 50 ML IV PRN (11:17)
[2023-05-19] MEDS ORDERED: ACETAMINOPHEN 500 MG TAB PO PRN (11:17)
[2023-05-19] MEDS ORDERED: HYDROmorphone INJ 1 MG/ML SYRINGE IV PRN (11:17)
[2023-05-19] MEDS ORDERED: PHARMACY GLYCEMIC MGMT CONSULT PRN (11:17)
[2023-05-19] MEDS ORDERED: NALOXONE HCL 0.4 MG/1 ML VIAL/CARP IV PRN (11:17)
[2023-05-19] MEDS ORDERED: bisacodyL 10 MG SUPP PR PRN (11:17)
[2023-05-19] MEDS ORDERED: DO NOT ADMINISTER FLU VACCINE PRN (11:17)
[2023-05-19] MEDS ORDERED: ALUMINUM/MAGNESIUM SUSP 30 ML UDC PO PRN (11:17)
[2023-05-19] MEDS ORDERED: traMADol HCL 50 MG TABLET PO PRN (11:17)
[2023-05-19] MEDS ORDERED: hydrOXYzine HCl 25 MG TAB PO PRN (11:17)
[2023-05-19] MEDS ORDERED: FAMOTIDINE 20 MG TAB PO PRN (11:17)
[2023-05-19] MEDS ORDERED: MAGNESIUM HYDROXIDE SUSP 30 ML UDC PO PRN (11:17)
[2023-05-19] MEDS ORDERED: ONDANSETRON 4 MG OD TAB PO PRN (11:17)
[2023-05-19] MEDS ORDERED: LORazepam 0.5 MG TAB PO PRN (11:17)
[2023-05-19] MEDS ORDERED: LORazepam 0.5 MG in SYRINGE 0.25 ML IV PRN (11:17)
[2023-05-19] MEDS ORDERED: DO NOT ADMINISTER PNEUMOCOCCAL VACCINE PRN (11:17)
[2023-05-19] MEDS ORDERED: METOCLOPRAMIDE HCL INJ 5 MG/ML 2 ML VIAL IV PRN (11:17)
[2023-05-19] MEDS ORDERED: SOD PHOSPHATE/SOD BIPHOSPHATE ENEMA 132 ML BTL PR PRN (11:17)
[2023-05-19] MEDS ORDERED: diphenhydrAMINE Capsule 25 MG CAP PO PRN (11:17)
[2023-05-19] MEDS ORDERED: HYDROmorphone INJ 0.5 MG/0.5 ML SYR IV PRN (11:17)
[2023-05-19] MEDS ORDERED: ACETAMINOPHEN 1,000 MG/100 ML VIAL IV PRN (11:17)
[2023-05-19] MEDS: SODIUM CHLORIDE 0.9% 1,000 ML IV SCH ×2 (11:47→21:28)
--- NOTE | 2023-05-19 12:00 | Anesthesiology Progress Note ---
Date of Service May 19, 2023 Anesthesia Post Procedure Vital Signs Vital Signs: Temp Pulse Pulse Resp BP Pulse Ox O2 Del Method 05/19/23 11:20 36.5 C 95 H 16 119/67 97 Room Air 05/19/23 10:50 93 H 14 119/74 97 Room Air 05/19/23 10:40 93 H 24 93/73 L 100 Oxymask 05/19/23 10:30 94 H 14 146/88 H 98 Oxymask 05/19/23 10:20 36.2 C L 103 H 12 145/81 H 99 Room Air 05/19/23 06:46 37.1 C 97 H 20 161/73 H 100 Room Air O2 Flow Rate 05/19/23 11:20 05/19/23 10:50 05/19/23 10:40 4 05/19/23 10:30 4 05/19/23 10:20 05/19/23 06:46 Pain Intensity Bilateral Lower Back: Pain Intensity: 6 Bilateral Leg: Pain Intensity: 8 Transfer of Care Handoff Completed per policy Notes Mental Status: alert / awake / arousable and participated in evaluation Patient Amnestic to Procedure: Yes Nausea / Vomiting: adequately controlled Pain: adequately controlled Airway Patency, RR, SpO2: stable & adequate BP & HR: stable & adequate Hydration State: stable & adequate Anesthetic Complications: no major complications apparent and Pt Satisfied with anesthetic care
--- NOTE | 2023-05-19 12:14 | Hospitalist Consultation ---
Date of Consultation May 19, 2023 Assessment & Plan (1) Neurogenic claudication due to lumbar spinal stenosis: This is a 67 y/o female with lumbar spinal stenosis, HTN, DM2, hx Hodgkin's lymphoma in remission, and dyslipidemia who underwent lumbar decompression and fusion today and for whom we have been consulted to assist with post-operative medical management. She is POD #0 - lumbar decompression/fusion - Pain control, DVT prophylaxis, activity per primary service - Encourage incentive spirometry - Labs in AM - CBC, BMP - monitor for blood loss anemia (pre-op Hgb 13.4) (2) DM type 2 (diabetes mellitus, type 2): - Hold Metformin during admission - Insulin sliding scale coverage - glycemic pharmacist consulted (3) HTN (hypertension): BP currently controlled - Continue outpatient lisinopril-HCTZ (4) HLD (hyperlipidemia): Chronic, stable - continue outpatient statin therapy Plan Pt seen and reviewed with collaborating physician, Dr. Villa. Plan of care discussed and as outlined above. Thank you for this consultation. We will continue to follow the patient with you. [facility] via [employer]. Please don't hesitate to reach out with questions. Alcides Moon PA-C Supervising Physician Co-Signing Physician Notes 67 year old woman with lumbar spinal stenosis, HTN, DM2, hx Hodgkin's lymphoma in remission, and dyslipidemia who underwent lumbar decompression and fusion Currently denies any pain. Reports some lower extremity numbness Tolerated lunch well. No cough or nausea Continue home meds Resume home antihypertensives from tomorrow Check CBC and BMP in AM Pain control Activity per Primary surgical team. Hold home metformin ISS while inpatient. Agree with plans as detailed by Sahra Moon PA-C History of Present Illness Reason for Consultation: Post-op medical management Requesting Physician: Dr. Serge Vidal Attending Physician: Serge Vidal, History of Present Illness This is a 67 y/o female with lumbar spinal stenosis, HTN, DM2, hx Hodgkin's lymphoma in remission, and dyslipidemia who underwent lumbar decompression and fusion today by Dr. Vidal. We have been consulted to assist with post-operative medical management. She has a history of lumbar spinal stenosis and failed conservative management with ESIs. Currently, pt is seen post-operatively and is doing well and has no specific complaints. Tolerating lunch without nausea or vomiting. Back pain is controlled. She has chronic numbness and tingling in her LE, which is unchanged. Denies chest pain, shortness of breath, dizziness, palpitations. She had a BARRIOS this morning that has since resolved with caffeine. She reports that she was using Excedrin migraine regularly for her back pain before surgery. Her diabetes is well-controlled with last A1c <6.0. She does not routinely check her blood sugar at home. She was having issues with her balance prior to surgery related to her back pain. Allergies Allergy/AdvReac Type Severity Reaction Status Date / Time sulfamethoxazole Allergy swelling Verified 05/19/23 06:40 [From Bactrim] of eyes, lips trimethoprim [From Bactrim] Allergy swelling Verified 05/19/23 06:40 of eyes, lips Home Medications Medication Instructions Recorded Confirmed Type atorvastatin 20 mg tablet 20 mg PO PM 05/02/23 05/19/23 History biotin 1 cap PO QPM 05/02/23 05/19/23 History duloxetine 30 mg capsule,delayed 30 mg PO QAM 05/02/23 05/19/23 History release sprinkle fiber 1 cap PO QAM 05/02/23 05/19/23 History gabapentin 300 mg capsule 300 mg PO TID 05/02/23 05/19/23 History lisinopril 20 1 tab PO QAM 05/02/23 05/19/23 History mg-hydrochlorothiazide 25 mg tablet metformin 500 mg tablet 500 mg PO BID 05/02/23 05/19/23 History multivitamin 1 tab PO QAM 05/02/23 05/19/23 History oxycodone 5 mg tablet 5 mg PO Q6H PRN pain #30 tabs 05/19/23 Rx tramadol 50 mg tablet 50 mg PO Q6H PRN pain, moderate 05/19/23 Rx #30 tabs Patient History Medical History (Updated 05/19/23 @ 14:08 by Ayanna Moon PA-C) HLD (hyperlipidemia) HTN (hypertension) DM type 2 (diabetes mellitus, type 2) History of blood transfusion In setting of cancer/treatment- History of COVID-19 01/2023 ([facility])- fever, cough, loss of taste/smell > resolved Abnormal pulmonary function test "Resolved" Hx during cancer treatment Spinal stenosis Osteoarthritis History of Hodgkin's lymphoma Dx 2018 Surgical History PONV (postoperative nausea and vomiting) History of left knee replacement History of right knee joint replacement History of appendectomy History of tonsillectomy and adenoidectomy History of cholecystectomy History of laminectomy x2 History of esophagogastroduodenoscopy (EGD) History of colonoscopy History of vascular access device subsequent removal Social History Smoking Status: Former smoker Smoking End Date: Quit 8 years ago; Second Hand Exposure: No; Do You Dip or Chew Tobacco: No; Tobacco Cessation Education Requested by Patient: No Hx Alcohol Use: Yes Hx Substance Use: No Preferred Language: Welsh Communication Ability: Effective Post Office Clerk Required: No Beliefs That Will Affect Care: None and Restorationist Restorationist Beliefs: Zoroastrian Current Living Situation: Alone Other Information That Helps Us Care for You: No Feels Safe at Home: Yes Safety Concerns: Feels Safe At This Time Assistive Devices: Cane, Denture - Upper, Denture - Lower and Glasses Assistive Devices Comment: upper/lower partials Review of Systems Review of Systems: All systems reviewed & are unremarkable except as noted in HPI & below Constitutional: no fever and no chills Eyes: no diplopia Respiratory: no dyspnea and no wheezing Cardiovascular: no chest pain and no palpitations Gastrointestinal: no abdominal pain, no nausea and no vomiting Musculoskeletal: + back pain (minimal at present) Neurologic: + unsteadiness, + tingling and + numbnes s Physical Exam Physical Exam: General: awake, alert, NAD Eyes: no scleral icterus Mouth: moist mucus membranes Neck: trachea midline Heart: RRR Lungs: CTA bilaterally on the anterior Abdomen: soft, NT, +BS Extremities: no pedal edema, distal pulses intact and equal Neurologic: Ox3, moving all extremities, diminished sensation bilateral feet Skin: no jaundice Results & Data Results & Data Vital Signs (Past 12 Hours) Vital Signs Temp Pulse Pulse Resp BP Pulse Ox O2 Del Method 05/19/23 11:50 36.6 C 98 H 16 113/75 96 Room Air 05/19/23 11:20 36.5 C 95 H 16 119/67 97 Room Air 05/19/23 10:50 93 H 14 119/74 97 Room Air 05/19/23 10:40 93 H 24 93/73 L 100 Oxymask 05/19/23 10:30 94 H 14 146/88 H 98 Oxymask 05/19/23 10:20 36.2 C L 103 H 12 145/81 H 99 Room Air 05/19/23 06:46 37.1 C 97 H 20 161/73 H 100 Room Air O2 Flow Rate 05/19/23 11:50 05/19/23 11:20 05/19/23 10:50 05/19/23 10:40 4 05/19/23 10:30 4 05/19/23 10:20 05/19/23 06:46 Laboratory Results 05/19/23 05/19/23 05/19/23 06:43 06:56 10:22 POC Glucose 120 H 132 H Blood Type O Negative Antibody Screen NEGATIVE Crossmatch See Detail Medications Administered Acetaminophen (Acetaminophen 500 Mg Tab) 1,000 mg PO PREOP KP Stop: 05/19/23 18:00 Last Admin: 05/19/23 06:57 Dose: 1,000 mg Documented By: LEILANI Gabapentin (Gabapentin 300 Mg Cap) 300 mg PO PREOP KP Stop: 05/19/23 18:00 Last Admin: 05/19/23 06:57 Dose: 300 mg Documented By: LEILANI Lactated Ringer's (Lr) 1,000 mls @ 15 mls/hr IV .Q24H [facility] Stop: 05/20/23 05:59 Last Infusion: 05/19/23 07:48 Dose: Infused Documented By: [facility] Admin: 05/19/23 07:07 Dose: 15 mls/hr Documented By: LEILANI Lactated Ringer's (Lr) 1,000 mls @ 60 mls/hr IV .[id number] KP Stop: 05/19/23 22:39 Last Admin: 05/19/23 06:58 Dose: Not Given Documented By: LEILANI Cefazolin Sodium (Ancef 2000mg) 2,000 mg in 15 mls @ 3.75 mls/min IV PREOP KP; Protocol Stop: 05/19/23 18:00 Last Admin: 05/19/23 08:41 Dose: 3.75 mls/min Documented By: PARVIZ Sodium Chloride (Nss) 1,000 mls @ 100 mls/hr IV .Q10H KP Stop: 06/18/23 11:16 Last Admin: 05/19/23 11:47 Dose: 100 mls/hr Documented By: CMM Discontinued Medications Bupivacaine HCl/Epinephrine Bitart (Bupivacaine/Epinephrine 0.5% Mpf 1:200,000 30 Ml Vial) Confirm Administered Dose 30 ml .ROUTE .STK-MED ONE Stop: 05/19/23 07:25 Last Admin: 05/19/23 08:42 Dose: 20 ml Documented By: GMB Cefazolin Sodium (Cefazolin 330 Mg/Ml 1 Gm Vial) Confirm Administered Dose 990 mg .ROUTE .STK-MED ONE Stop: 05/19/23 07:25 Last Admin: 05/19/23 08:42 Dose: 990 mg Documented By: GMB Miscellaneous ( Floseal Hemostatic Matrix 10ml) 10 ml TOP ONCE ONE Stop: 05/19/23 08:44 Last Admin: 05/19/23 09:53 Dose: 15 ml Documented By: GMB (2) DM type 2 (diabetes mellitus, type 2) Diabetes mellitus snf insulin use: without snf use Diabetes mellitus complication status: without complication Qualified Code(s): E11.9 - Type 2 diabetes mellitus without complications (3) HTN (hypertension) Hypertension type: primary hypertension Qualified Code(s): I10 - Essential (primary) hypertension (4) HLD (hyperlipidemia) Hyperlipidemia type: unspecified Qualified Code(s): E78.5 - Hyperlipidemia, unspecified
[2023-05-19] MEDS: INSULIN ASPART PER UNIT CHARGE SC SCH ×3 (12:19→21:29)
[2023-05-19] MEDS: oxyCODONE HCL IR 5 MG TAB (IMMEDIATE RELEASE) PO PRN ×2 (13:27→18:24)
--- NOTE | 2023-05-19 14:02 | Pharmacy Report ---
Pharmacy Glycemic Short Note 2 - Date of Service May 19, 2023 - Glycemic Short BSG Results (Last 24 hours): 05/19/23 05/19/23 06:56 10:22 POC Glucose 120 H 132 H OUTPATIENT ANTIDIABETIC REGIMEN: * metformin 500mg PO BID * HbA1c 5.7 05/08/23 ASSESSMENT: * Sally is a 67 YOF admitted status post spinal decompression and fusion with a history of type 2 diabetes mellitus. Pharmacy has been consulted to assist with glycemic management. * Preoperative BSG within goal range, received 8mg IV dexamethasone preoperatively, will give a small dose of basal insulin (0.1 units/kg) with dinner to cover * She is ordered Ancef postoperatively and will receive dexamethasone 6mg IV for 3 days postoperatively. Reassess steroid sensitivity and basal regimen in AM. * Will initiate Novolog at a weight based stress of 2 PLAN FOR INPATIENT GLYCEMIC CONTROL: * Hold outpatient oral diabetes medications * Basal insulin * Lantus 10 units SQ with dinner, reasses basal in AM * Bolus insulin * NovoLog per scale ACHS or Q6hrs while NPO * Goal Range: Low 110 mg/dL - High 140 mg/dL * Correction Factor: 30 mg/dL/unit * Nutritional / Prandial insulin per carb ratio of 1 unit per 10 grams CHO consumed
[2023-05-19] MEDS: GABAPENTIN 300 MG CAP PO SCH ×2 (14:11→21:30)
[2023-05-19] MEDS ORDERED: LANTUS PER UNIT CHARGE SC SCH (16:30)
[2023-05-19] MEDS: ceFAZolin 2000MG 2,000 MG/15 ML SYR IV SCH (16:49)
[2023-05-19] MEDS ORDERED: NON-FORMULARY MEDICATION (Biotin 1 CAP) PO SCH (21:00)
[2023-05-19] MEDS: DOCUSATE SODIUM/SENNA 50/8.6MG TAB PO SCH (21:30)
[2023-05-19] MEDS: ATORVASTATIN 20 MG TAB PO SCH (21:31)
[2023-05-20] MEDS: ceFAZolin 2000MG 2,000 MG/15 ML SYR IV SCH (01:10)
[2023-05-20] MEDS: POLYETHYLENE (MIRALAX) 17 GM PACK PO SCH ×3 (05:04→17:19)
[2023-05-20 05:56] LABS: Basophils # (auto) 0.01 K/uL (0.00-0.20); Basophils % (auto) 0.1 %; Hematocrit (blood only) 32.3 % (37.0-47.0); Hemoglobin 10.5 g/dl (12.0-16.0); Immature Granulocytes # (auto) 0.03 K/uL (0.01-0.20); Immature Granulocytes % (auto) 0.3 %; Lymphocytes # (auto) 1.38 K/uL (1.20-3.40); Lymphocytes % (auto) 14.4 %; Mean Corpuscular Hemoglobin 28.1 pg (25.0-34.0); Mean Corpuscular Hgb Conc 32.5 g/dL (32.0-36.0); Mean Corpuscular Volume 86.4 fL (80.0-100.0); Mean Platelet Volume 9.1 fL (9.4-12.4); Monocytes # (auto) 0.66 K/uL (0.11-0.59); Monocytes % (auto) 6.9 %; Neutrophils # (auto) 7.49 K/uL (1.40-6.50); Neutrophils % (auto) 78.3 %; Platelet Count 236 K/uL (130-400); RDW Coefficient of Variation 15.8 % (11.5-14.5); RDW Standard Deviation 49.1 fL (36.4-46.3); Red Blood Count 3.74 M/uL (4.20-5.40); White Blood Count 9.57 K/ul (4.8-10.8)
[2023-05-20 06:13] LABS: BUN Creatinine Ratio 20.2 (10-20); Calcium 8.7 mg/dl (8.6-10.3); Est GFR (African American) 82.2 ml/min; Est GFR (Non-African American) 70.9 ml/min
[2023-05-20] MEDS: LISINOPRIL/HCTZ 20/25MG 1 TAB PO SCH ×2 (07:52→08:02)
[2023-05-20] MEDS: DULoxetine HCL 30 MG CAP PO SCH (07:52)
[2023-05-20] MEDS: MULTIVITAMIN TAB PO SCH (07:52)
[2023-05-20] MEDS: GABAPENTIN 300 MG CAP PO SCH ×3 (07:52→20:28)
[2023-05-20] MEDS: dexAMETHasone 6 MG in SYRINGE 0 ML IV SCH (07:53)
[2023-05-20] MEDS: oxyCODONE HCL IR 5 MG TAB (IMMEDIATE RELEASE) PO PRN ×3 (07:57→20:34)
[2023-05-20] MEDS: INSULIN ASPART PER UNIT CHARGE SC SCH ×4 (08:04→20:34)
[2023-05-20] MEDS: LANTUS PER UNIT CHARGE SC SCH (08:08)
--- NOTE | 2023-05-20 08:24 | Pharmacy Report ---
Pharmacy Glycemic Short Note 2 - Date of Service May 20, 2023 - Glycemic Short BSG Results (Last 24 hours): 05/19/23 05/19/23 05/19/23 10:22 16:41 21:00 Glucose POC Glucose 132 H 154 H 149 H 05/20/23 05/20/23 05:32 07:46 Glucose 124 H POC Glucose 121 H OUTPATIENT ANTIDIABETIC REGIMEN: * metformin 500mg PO BID * HbA1c 5.7 05/08/23 ASSESSMENT: 05/20/23: * BSGs reasonably well-controlled postoperatively * Will slightly tighten Novolog parameters today w/ slight increase in basal dose with dexamethasone this morning 05/19/23: * Sally is a 67 YOF admitted status post spinal decompression and fusion with a history of type 2 diabetes mellitus. Pharmacy has been consulted to assist with glycemic management. * Preoperative BSG within goal range, received 8mg IV dexamethasone preop eratively, will give a dose of basal insulin (0.1 units/kg) with dinner to cover * She is ordered Ancef postoperatively and will receive dexamethasone 6mg IV for 3 days postop. Reassess steroid sensitivity and basal regimen in AM. * Will initiate Novolog at a weight based stress of 2. PLAN FOR INPATIENT GLYCEMIC CONTROL: * Hold outpatient oral diabetes medications * Basal insulin * Lantus 10 units SQ daily * Bolus insulin * NovoLog per scale ACHS or Q6hrs while NPO * Goal Range: Low 110 mg/dL - High 140 mg/dL * Correction Factor: 25 mg/dL/unit * Nutritional / Prandial insulin per carb ratio of 1 unit per 9 grams CHO consumed
--- NOTE | 2023-05-20 10:31 | Orthopedic Progress Note ---
Date of Service May 20, 2023 Assessment & Plan (1) Neurogenic claudication due to lumbar spinal stenosis: Plan: At this time we will continue physical therapy monitor KIRSTIE output anticipate discharge home next few days. Admission and Anticipated Discharge Date Admission Date: May 19, 2023 Subjective Back pain controlled leg pain improved Physical Exam Physical Exam: Patient is in the chair at the bedside. She is comfortable. Is concerned to testing. Results & Data Vital Signs (Past 12 Hours) Vital Signs Temp Pulse Resp BP Pulse Ox O2 Del Method 05/20/23 07:04 36.7 C 88 16 122/69 96 Room Air 05/20/23 04:35 36.9 C 93 H 18 136/73 96 Room Air 05/19/23 22:46 36.8 C 98 H 18 122/71 96 Room Air Queries Orthopedic Spine Acute Posthemorrhagic Anemia: Yes
--- NOTE | 2023-05-20 13:19 | Hospitalist Progress Note ---
Date of Service May 20, 2023 Assessment & Plan (1) Neurogenic claudication due to lumbar spinal stenosis: Plan: This is a 67 y/o female with lumbar spinal stenosis, HTN, DM2, hx Hodgkin's lymphoma in remission, and dyslipidemia who underwent lumbar decompression and fusion today and for whom we have been consulted to assist with post-operative medical management. She is POD #1 - lumbar decompression/fusion - Pain control, DVT prophylaxis, activity per primary service - Encourage incentive spirometry - Labs in AM - CBC, BMP - monitor for blood loss anemia (pre-op Hgb 13.4) (2) Postoperative anemia due to acute blood loss: Plan: Pre op hgb 13.4 Hgb 10.5 today likely 2/2 expected surgical blood loss and dilutional component (3) DM type 2 (diabetes mellitus, type 2): Plan: - Hold Metformin during admission - Insulin sliding scale coverage - glycemic pharmacist consulted -appreciate their management (4) HTN (hypertension): Plan: BP currently controlled - Continue outpatient lisinopril-HCTZ (5) HLD (hyperlipidemia): Plan: Chronic, stable - continue outpatient statin therapy Plan Dispo: per primary Pt was seen and examined in collaboration with Dr. Seaman, please see addendum A total of 45 minutes was spent coordinating, documenting, and providing care for this patient excluding time spent in the performance of separately billed services. This included personally viewing all current laboratories and imaging studies, medication reconciliation, outpatient chart review, and discussion with specialists. Thank you for this consultation. We will follow the patient with you during their hospital stay. You can reach a member of the [facility] Hospitalist Team 18/11 via hospitalist role on [employer]. Admission and Anticipated Discharge Date Admission Date: May 19, 2023 Supervising Physician Co-Signing Physician Notes Patient seen and examined independently. Discussed with above provider. She is comfortable; not in distress. She is sitting up on the chair at the side of the bed. No shortness of breath, fever, chest pain. No bowel movements yet. Discussed risks of pneumonia/atelectasis, ileus, UTI and DVT. Rest per primary. Please note the above document was generated using voice recognition software. It may contain grammatical, syntax or spelling errors. Any formal questions or concerns about the content, text or information contained within the body of this dictation should be directly addressed to the provider for clarification Subjective Patient was seen and examined in room 310. F/U lumbar surgery. Pt was seen sitting in bedside chair. NAEON. Denies f/c/s, chest pain, sob, n/v/d. She is tolerating diet. Her marrero was removed. Review of Systems Review of Systems: All systems reviewed & are unremarkable except as noted in HPI & below Physical Exam Physical Exam: Gen: WD/WN,F, sitting up in bedside chair, NAD, A&O x3 HEENT: Normocephalic, atraumatic, conjunctivae moist, sclerae anicteric, mucous membranes moist. Lung: Clear to Auscultation bilaterally, no wheezes/rales/rhonchi Heart: Regular rate, regular rhythm, no murmurs, rubs, or gallops Abdomen: Soft, NT, ND +BS x 4 Extremities: No edema, lumbar dressing CDI, KIRSTIE drain with serosang drainage Skin: Warm, no rash, negative turgor. Results & Data Results & Data Vital Signs (Past 12 Hours) Vital Signs Temp Pulse Resp BP Pulse Ox O2 Del Method 05/20/23 11:43 36.8 C 93 H 16 121/74 94 Room Air 05/20/23 07:04 36.7 C 88 16 122/69 96 Room Air 05/20/23 04:35 36.9 C 93 H 18 136/73 96 Room Air Laboratory Results I have independently reviewed and interpreted patient's labs including CBC, BMP. Short CBC 05/20/23 Range/Units 05:32 WBC 9.57 (4.8-10.8) K/ul Hgb 10.5 L (12.0-16.0) g/dl Hct 32.3 L (37.0-47.0) % Plt Count 236 (130-400) K/uL BMP 05/20/23 05:32 Sodium 135 L Potassium 4.0 Chloride 104 Carbon Dioxide 25 BUN 17 Creatinine 0.84 Glucose 124 H Calcium 8.7 Medications Administered Current Inpatient Medications Acetaminophen (Acetaminophen 500 Mg Tab) 1,000 mg PO Q8H PRN PRN Reason: MILD Pain Scale 1,2,3 & Pre PT Stop: 06/18/23 11:16 Al Hydrox/Mg Hydrox/Simethicone (Aluminum/Magnesium Susp 30 Ml Udc) 30 ml PO Q6H PRN PRN Reason: Dyspepsia Stop: 06/18/23 11:16 Atorvastatin Calcium (Atorvastatin 20 Mg Tab) 20 mg PO PM [facility] Stop: 06/18/23 20:59 Last Admin: 05/19/23 21:31 Dose: 20 mg Bisacodyl (Bisacodyl 10 Mg Supp) 10 mg [place] DAILY PRN PRN Reason: Constipation Stop: 06/18/23 11:16 Diphenhydramine HCl (Diphenhydramine Capsule 25 Mg Cap) 25 mg PO Q6H PRN PRN Reason: Allergic Rhinitis/Insomnia Stop: 06/18/23 11:16 Duloxetine HCl (Duloxetine Hcl 30 Mg Cap) 30 mg PO QAM [facility] Stop: 06/19/23 08:59 Last Admin: 05/20/23 07:52 Dose: 30 mg Famotidine (Famotidine 20 Mg Tab) 20 mg PO Q12H PRN PRN Reason: Dyspepsia Stop: 06/18/23 11:16 Gabapentin (Gabapentin 300 Mg Cap) 300 mg PO TID [facility] Stop: 06/18/23 13:59 Last Admin: 05/20/23 07:52 Dose: 300 mg Lisinopril/HCTZ (Lisinopril/Hctz 20/25mg 1 Tab) [facility] Stop: 06/19/23 08:59 Last Admin: 05/20/23 08:02 Dose: Not Given Hydromorphone HCl (Hydromorphone Inj 0.5 Mg/0.5 Ml Syr) 0.5 mg IV Q3H PRN PRN Reason: MODERATE Pain (Scale 4,5,6) & Pre PT Stop: 06/02/23 11:16 Hydromorphone HCl (Hydromorphone Inj 1 Mg/Ml Syringe) 1 mg IV Q3H PRN PRN Reason: SEVERE Pain (Scale 7,8,9,10) Stop: 06/02/23 11:16 Hydroxyzine HCl (Hydroxyzine Hcl 25 Mg Tab) 25 mg PO Q8H PRN PRN Reason: Anxiety Stop: 06/18/23 11:16 Promethazine HCl 12.5 mg/ (Sodium Chloride) 50.5 mls @ 202 mls/hr IV Q6H PRN PRN Reason: Nausea &/or Vomiting Stop: 06/18/23 11:16 Lorazepam 0.5 mg/ Syringe 0.5 mls @ 2 mls/min IV Q8H PRN; Protocol PRN Reason: Sedation/Anxiety Stop: 06/18/23 11:16 Dexamethasone 6 mg/ Syringe 1.5 mls @ 1 mls/min IV DAILY [facility] Stop: 05/22/23 09:02 Last Admin: 05/20/23 07:53 Dose: 1 mls/min Influenza Virus Vaccine Quadrival (Do Not Administer Flu Vaccine) 1 each N/A PRN PRN PRN Reason: Notification Stop: 06/18/23 11:16 Insulin Aspart (Insulin Aspart Per Unit Charge) 0 units SC ACHS [facility] Stop: 06/18/23 12:14 Last Admin: 05/20/23 12:56 Dose: 5 units Insulin Glargine (Lantus Per Unit Charge) 10 units SC DAILY [facility] Stop: 05/22/23 09:01 Last Admin: 05/20/23 08:08 Dose: 10 units Lorazepam (Lorazepam 0.5 Mg Tab) 0.5 mg PO Q8H PRN PRN Reason: Sedation/Anxiety Stop: 06/18/23 11:16 Last Admin: 05/19/23 21:29 Dose: 0.5 mg Magnesium Hydroxide (Magnesium Hydroxide Susp 30 Ml Udc) 30 ml PO Q24H PRN PRN Reason: Constipation Stop: 06/18/23 11:16 Last Admin: 05/20/23 07:58 Dose: 30 ml Metoclopramide HCl (Metoclopramide Hcl Inj 5 Mg/Ml 2 Ml Vial) 10 mg IV Q6H PRN PRN Reason: Nausea &/or Vomiting Stop: 06/18/23 11:16 Miscellaneous Information (Pharmacy Glycemic Mgmt Consult) 1 each N/A UD PRN PRN Reason: Consult Stop: 06/18/23 11:16 Multivitamins (Multivitamin Tab) 1 tab PO QAM [facility] Stop: 06/19/23 08:59 Last Admin: 05/20/23 07:52 Dose: 1 tab Naloxone HCl (Naloxone Hcl 0.4 Mg/1 Ml Vial/Carp) 0.1 mg IV Q5M PRN PRN Reason: Oversedation/Resp depression Stop: 06/18/23 11:16 Ondansetron HCl (Ondansetron Inj 2 Mg/Ml 2 Ml Vial) 4 mg IV Q6H PRN PRN Reason: Nausea &/or Vomiting Stop: 06/18/23 11:16 Ondansetron HCl (Ondansetron 4 Mg Od Tab) 4 mg PO Q6H PRN PRN Reason: Nausea Stop: 06/18/23 11:16 Oxycodone HCl (Oxycodone Hcl Ir 5 Mg Tab (Immediate Release)) 5 - 10 mg PO Q4H PRN PRN Reason: Pain & Pre PT Stop: 06/02/23 11:16 Last Admin: 05/20/23 12:45 Dose: 10 mg Pneumococcal Polyvalent Vaccine (Do Not Administer Pneumococcal Vaccine) 1 each N/A PRN PRN PRN Reason: Notification Stop: 06/18/23 11:16 Polyethylene Glycol (Polyethylene (Miralax) 17 Gm Pack) 17 gm PO Q6 KP Stop: 06/19/23 05:59 Last Admin: 05/20/23 12:55 Dose: Not Given Senna/Docusate Sodium (Docusate Sodium/Senna 50/8.6mg Tab) 2 tab PO HS KP Stop: 06/18/23 20:59 Last Admin: 05/19/23 21:30 Dose: 2 tab Sodium Biphosphate/Sodium Phosphate (Sod Phosphate/Sod Biphosphate Enema 132 Ml Btl) 132 ml [place] ONE PRN PRN Reason: Constipation Stop: 06/18/23 11:16 Tramadol HCl (Tramadol Hcl 50 Mg Tablet) 50 - 100 mg PO Q4H PRN PRN Reason: Moderate-Severe pain & Pre PT Stop: 06/18/23 11:16 COVID-19 Results Results COVID-19 Adm Lab Results: RBC 3.74 M/uL (4.20-5.40) L 05/20/23 WBC 9.57 K/ul (4.8-10.8) 05/20/23 Hgb 10.5 g/dl (12.0-16.0) L 05/20/23 Hct 32.3 % (37.0-47.0) L 05/20/23 Plt Count 236 K/uL (130-400) 05/20/23 Neutrophils (%) (Auto) 78.3 % 05/20/23 Lymphocytes (%) (Auto) 14.4 % 05/20/23 Monocytes # (Auto) 0.66 K/uL (0.11-0.59) H 05/20/23 Eosinophils # (Auto) 0.00 K/uL (0.00-0.50) 05/20/23 Immature Granulocyte % (Auto) 0.3 % 05/20/23 Neutrophils # (Auto) 7.49 K/uL (1.40-6.50) H 05/20/23 Lymphocytes # (Auto) 1.38 K/uL (1.20-3.40) 05/20/23 Monocytes # (Auto) 0.66 K/uL (0.11-0.59) H 05/20/23 Eosinophils # (Auto) 0.00 K/uL (0.00-0.50) 05/20/23 Basophils # (Auto) 0.01 K/uL (0.00-0.20) 05/20/23 Immature Granulocyte # (Auto) 0.03 K/uL (0.01-0.20) 4 Na 135 mmol/L (136-145) L 05/20/23 K 4.0 mmol/L (3.5-5.1) 05/20/23 Cl 104 mmol/L (98-107) 05/20/23 CO2 25 mmol/L (21-32) 05/20/23 Anion Gap 6 (3-11) 05/20/23 BUN 17 mg/dl (6-23) 05/20/23 Creatinine 0.84 mg/dl (0.6-1.2) 05/20/23 BUN/Creatinine Ratio 20.2 (10-20) H 05/20/23 Glucose Level 124 mg/dl (70-99(Fasting)) H 05/20/23 Ca 8.7 mg/dl (8.6-10.3) 05/20/23 (3) DM type 2 (diabetes mellitus, type 2) Diabetes mellitus complication status: without complication Diabetes mellitus care home insulin use: without intermediate manager use Qualified Code(s): E11.9 - Type 2 diabetes mellitus without complications (4) HTN (hypertension) Hypertension type: primary hypertension Qualified Code(s): I10 - Essential (primary) hypertension (5) HLD (hyperlipidemia) Hyperlipidemia type: unspecified Qualified Code(s): E78.5 - Hyperlipidemia, unspecified
[2023-05-20] MEDS: DOCUSATE SODIUM/SENNA 50/8.6MG TAB PO SCH (20:28)
[2023-05-20] MEDS: ATORVASTATIN 20 MG TAB PO SCH (20:28)
[2023-05-21] MEDS: POLYETHYLENE (MIRALAX) 17 GM PACK PO SCH ×5 (00:08→23:42)
[2023-05-21] MEDS: oxyCODONE HCL IR 5 MG TAB (IMMEDIATE RELEASE) PO PRN ×4 (03:39→19:11)
[2023-05-21 06:47] LABS: Hematocrit (blood only) 32.1 % (37.0-47.0); Hemoglobin 10.3 g/dl (12.0-16.0); Mean Corpuscular Hemoglobin 28.3 pg (25.0-34.0); Mean Corpuscular Hgb Conc 32.1 g/dL (32.0-36.0); Mean Corpuscular Volume 88.2 fL (80.0-100.0); Mean Platelet Volume 9.2 fL (9.4-12.4); Platelet Count 240 K/uL (130-400); RDW Coefficient of Variation 15.9 % (11.5-14.5); RDW Standard Deviation 51.8 fL (36.4-46.3); Red Blood Count 3.64 M/uL (4.20-5.40); White Blood Count 12.49 K/ul (4.8-10.8)
[2023-05-21] MEDS: GABAPENTIN 300 MG CAP PO SCH ×3 (07:30→19:13)
[2023-05-21] MEDS: MULTIVITAMIN TAB PO SCH (07:31)
[2023-05-21] MEDS: dexAMETHasone 6 MG in SYRINGE 0 ML IV SCH (07:31)
[2023-05-21] MEDS: DULoxetine HCL 30 MG CAP PO SCH (07:31)
[2023-05-21] MEDS: LISINOPRIL/HCTZ 20/25MG 1 TAB PO SCH (07:31)
[2023-05-21 07:36] LABS: Potassium 4.2 mmol/L (3.5-5.1)
[2023-05-21 07:42] LABS: BUN Creatinine Ratio 25.9 (10-20); Creatinine Clr Calc Pharmacy 70.6 ml/min; Est GFR (African American) 85.9 ml/min; Est GFR (Non-African American) 74.1 ml/min
[2023-05-21] MEDS: INSULIN ASPART PER UNIT CHARGE SC SCH ×4 (08:18→21:43)
[2023-05-21] MEDS: LANTUS PER UNIT CHARGE SC SCH (08:18)
--- NOTE | 2023-05-21 11:22 | Hospitalist Progress Note ---
Date of Service May 21, 2023 Assessment & Plan (1) Neurogenic claudication due to lumbar spinal stenosis: Plan: This is a 67 y/o female with lumbar spinal stenosis, HTN, DM2, hx Hodgkin's lymphoma in remission, and dyslipidemia who underwent lumbar decompression and fusion today and for whom we have been consulted to assist with post-operative medical management. She is POD #2 - lumbar decompression/fusion - Pain control, DVT prophylaxis, activity per primary service - Encourage incentive spirometry - Labs in AM - CBC, BMP - monitor for blood loss anemia (pre-op Hgb 13.4) (2) Postoperative anemia due to acute blood loss: Plan: Pre op hgb 13.4 Hemoglobin stable at 10.3, no indication for transfusion likely 2/2 expected surgical blood loss and dilutional component (3) DM type 2 (diabetes mellitus, type 2): Plan: - Hold Metformin during admission - Insulin sliding scale coverage - glycemic pharmacist consulted -appreciate their management -BSG stable at 102 and 148 (4) HTN (hypertension): Plan: BP currently controlled - Continue outpatient lisinopril-HCTZ (5) HLD (hyperlipidemia): Plan: Chronic, stable - continue outpatient statin therapy Plan Dispo: per primary Pt was seen and examined in collaboration with Dr. Cooper, please see addendum A total of 40 minutes was spent coordinating, documenting, and providing care for this patient excluding time spent in the performance of separately billed services. This included personally viewing all current laboratories and imaging studies, medication reconciliation, outpatient chart review, and discussion with specialists. Thank you for this consultation. We will follow the patient with you during their hospital stay. You can reach a member of the [facility] Hospitalist Team 18/11 via hospitalist role on tiger text. Admission and Anticipated Discharge Date Admission Date: May 19, 2023 Supervising Physician Co-Signing Physician Notes Patient was seen and examined at bedside. Patient reports improvement in her radicular symptoms, fairly better pain control at operative site. Patient appears happy. On exam, low back dressing clean/dry/intact. KIRSTIE drain with moderate serosanguineous collection noted. Patient has normal bowel but is moving gas. Denies any other complaints. I have seen and examined the patient and have discussed the case with the provider above. I agree with the assessment and plan as stated. Subjective Patient was seen and examined in room 310. F/U lumbar surgery. Pt was seen sitting in bed. NAEON. No BM yet but is passing flatus. Denies fever, chills, sweats, lightheadedness, dizziness, chest pain, shortness with, nausea, vomiting or abdominal pain. Feels her back pain is significantly improved. She is urinating without difficulty. Review of Systems Review of Systems: All systems reviewed & are unremarkable except as noted in HPI & below Physical Exam Physical Exam: Gen: WD/WN,F, sitting up in bedside chair, NAD, A&O x3 HEENT: Normocephalic, atraumatic, conjunctivae moist, sclerae anicteric, mucous membranes moist. Lung: Clear to Auscultation bilaterally, no wheezes/rales/rhonchi Heart: Regular rate, regular rhythm, no murmurs, rubs, or gallops Abdomen: Soft, NT, ND +BS x 4 Extremities: No edema, lumbar dressing CDI, KIRSTIE drain with serosang drainage Skin: Warm, no rash, negative turgor. Results & Data Results & Data Vital Signs (Past 12 Hours) Vital Signs Temp Pulse Resp BP Pulse Ox O2 Del Method 05/21/23 08:01 36.8 C 93 H 16 116/69 95 Room Air 05/21/23 08:00 Room Air Laboratory Results Short CBC 05/21/23 Range/Units 06:10 WBC 12.49 H (4.8-10.8) K/ul Hgb 10.3 L (12.0-16.0) g/dl Hct 32.1 L (37.0-47.0) % Plt Count 240 (130-400) K/uL BMP 05/21/23 06:10 Sodium 135 L Potassium 4.2 Chloride 102 Carbon Dioxide 27 BUN 21 Creatinine 0.81 Glucose 102 H Calcium 9.0 I personally reviewed and interpreted patient's CBC and BMP from this morning. Medications Administered Current Inpatient Medications Acetaminophen (Acetaminophen 500 Mg Tab) 1,000 mg PO Q8H PRN PRN Reason: MILD Pain Scale 1,2,3 & Pre PT Stop: 06/18/23 11:16 Al Hydrox/Mg Hydrox/Simethicone (Aluminum/Magnesium Susp 30 Ml Udc) 30 ml PO Q6H PRN PRN Reason: Dyspepsia Stop: 06/18/23 11:16 Atorvastatin Calcium (Atorvastatin 20 Mg Tab) 20 mg PO PM REPLACED BY [facility] Stop: 06/18/23 20:59 Last Admin: 05/20/23 20:28 Dose: 20 mg Bisacodyl (Bisacodyl 10 Mg Supp) 10 mg MT DAILY PRN PRN Reason: Constipation Stop: 06/18/23 11:16 Diphenhydramine HCl (Diphenhydramine Capsule 25 Mg Cap) 25 mg PO Q6H PRN PRN Reason: Allergic Rhinitis/Insomnia Stop: 06/18/23 11:16 Duloxetine HCl (Duloxetine Hcl 30 Mg Cap) 30 mg PO QAM REPLACED BY [facility] Stop: 06/19/23 08:59 Last Admin: 05/21/23 07:31 Dose: 30 mg Famotidine (Famotidine 20 Mg Tab) 20 mg PO Q12H PRN PRN Reason: Dyspepsia Stop: 06/18/23 11:16 Gabapentin (Gabapentin 300 Mg Cap) 300 mg PO TID REPLACED BY [facility] Stop: 06/18/23 13:59 Last Admin: 05/21/23 07:30 Dose: 300 mg Lisinopril/HCTZ (Lisinopril/Hctz 20/25mg 1 Tab) 1 tab PO QAM REPLACED BY [facility] Stop: 06/19/23 08:59 Last Admin: 05/21/23 07:31 Dose: 1 tab Hydromorphone HCl (Hydromorphone Inj 0.5 Mg/0.5 Ml Syr) 0.5 mg IV Q3H PRN PRN Reason: MODERATE Pain (Scale 4,5,6) & Pre PT Stop: 06/02/23 11:16 Hydromorphone HCl (Hydromorphone Inj 1 Mg/Ml Syringe) 1 mg IV Q3H PRN PRN Reason: SEVERE Pain (Scale 7,8,9,10) Stop: 06/02/23 11:16 Hydroxyzine HCl (Hydroxyzine Hcl 25 Mg Tab) 25 mg PO Q8H PRN PRN Reason: Anxiety Stop: 06/18/23 11:16 Promethazine HCl 12.5 mg/ (Sodium Chloride) 50.5 mls @ 202 mls/hr IV Q6H PRN PRN Reason: Nausea &/or Vomiting Stop: 06/18/23 11:16 Lorazepam 0.5 mg/ Syringe 0.5 mls @ 2 mls/min IV Q8H PRN; Protocol PRN Reason: Sedation/Anxiety Stop: 06/18/23 11:16 Dexamethasone 6 mg/ Syringe 1.5 mls @ 1 mls/min IV DAILY REPLACED BY [facility] Stop: 05/22/23 09:02 Last Admin: 05/21/23 07:31 Dose: 1 mls/min Influenza Virus Vaccine Quadrival (Do Not Administer Flu Vaccine) 1 each N/A PRN PRN PRN Reason: Notification Stop: 06/18/23 11:16 Insulin Aspart (Insulin Aspart Per Unit Charge) 0 units SC ACHS REPLACED BY [facility] Stop: 06/18/23 12:14 Last Admin: 05/21/23 08:18 Dose: 7 units Insulin Glargine (Lantus Per Unit Charge) 10 units SC DAILY REPLACED BY [facility] Stop: 05/22/23 09:01 Last Admin: 05/21/23 08:18 Dose: 10 units Lorazepam (Lorazepam 0.5 Mg Tab) 0.5 mg PO Q8H PRN PRN Reason: Sedation/Anxiety Stop: 06/18/23 11:16 Last Admin: 05/19/23 21:29 Dose: 0.5 mg Magnesium Hydroxide (Magnesium Hydroxide Susp 30 Ml Udc) 30 ml PO Q24H PRN PRN Reason: Constipation Stop: 06/18/23 11:16 Last Admin: 05/20/23 07:58 Dose: 30 ml Metoclopramide HCl (Metoclopramide Hcl Inj 5 Mg/Ml 2 Ml Vial) 10 mg IV Q6H PRN PRN Reason: Nausea &/or Vomiting Stop: 06/18/23 11:16 Miscellaneous Information (Pharmacy Glycemic Mgmt Consult) 1 each N/A UD PRN PRN Reason: Consult Stop: 06/18/23 11:16 Multivitamins (Multivitamin Tab) 1 tab PO QAM REPLACED BY [facility] Stop: 06/19/23 08:59 Last Admin: 05/21/23 07:31 Dose: 1 tab Naloxone HCl (Naloxone Hcl 0.4 Mg/1 Ml Vial/Carp) 0.1 mg IV Q5M PRN PRN Reason: Oversedation/Resp depression Stop: 06/18/23 11:16 Ondansetron HCl (Ondansetron Inj 2 Mg/Ml 2 Ml Vial) 4 mg IV Q6H PRN PRN Reason: Nausea &/or Vomiting Stop: 06/18/23 11:16 Ondansetron HCl (Ondansetron 4 Mg Od Tab) 4 mg PO Q6H PRN PRN Reason: Nausea Stop: 06/18/23 11:16 Oxycodone HCl (Oxycodone Hcl Ir 5 Mg Tab (Immediate Release)) 5 - 10 mg PO Q4H PRN PRN Reason: Pain & Pre PT Stop: 06/02/23 11:16 Last Admin: 05/21/23 09:14 Dose: 10 mg Pneumococcal Polyvalent Vaccine (Do Not Administer Pneumococcal Vaccine) 1 each N/A PRN PRN PRN Reason: Notification Stop: 06/18/23 11:16 Polyethylene Glycol (Polyethylene (Miralax) 17 Gm Pack) 17 gm PO Q6 KP Stop: 06/19/23 05:59 Last Admin: 05/21/23 05:56 Dose: 17 gm Senna/Docusate Sodium (Docusate Sodium/Senna 50/8.6mg Tab) 2 tab PO HS KP Stop: 06/18/23 20:59 Last Admin: 05/20/23 20:28 Dose: 2 tab Sodium Biphosphate/Sodium Phosphate (Sod Phosphate/Sod Biphosphate Enema 132 Ml Btl) 132 ml MT ONE PRN PRN Reason: Constipation Stop: 06/18/23 11:16 Tramadol HCl (Tramadol Hcl 50 Mg Tablet) 50 - 100 mg PO Q4H PRN PRN Reason: Moderate-Severe pain & Pre PT Stop: 06/18/23 11:16 (3) DM type 2 (diabetes mellitus, type 2) Diabetes mellitus complication status: without complication Diabetes mellitus half-way insulin use: without network control supervisor use Qualified Code(s): E11.9 - Type 2 diabetes mellitus without complications (4) HTN (hypertension) Hypertension type: primary hypertension Qualified Code(s): I10 - Essential (primary) hypertension (5) HLD (hyperlipidemia) Hyperlipidemia type: unspecified Qualified Code(s): E78.5 - Hyperlipidemia, unspecified
--- NOTE | 2023-05-21 13:10 | Orthopedic Progress Note ---
Date of Service May 21, 2023 Assessment & Plan (1) Neurogenic claudication due to lumbar spinal stenosis: Plan: At this time continue physical therapy monitor KISRTIE output anticipate discharge home tomorrow. Admission and Anticipated Discharge Date Admission Date: May 19, 2023 Subjective Back pain controlled leg pain improved Physical Exam Physical Exam: Patient is in the chair at the bedside. Is constricted testing. Is comfortable. Results & Data Vital Signs (Past 12 Hours) Vital Signs Temp Pulse Resp BP Pulse Ox O2 Del Method 05/21/23 08:01 36.8 C 93 H 16 116/69 95 Room Air 05/21/23 08:00 Room Air Queries Orthopedic Spine Acute Posthemorrhagic Anemia: Yes
[2023-05-21] MEDS: DOCUSATE SODIUM/SENNA 50/8.6MG TAB PO SCH (19:12)
[2023-05-21] MEDS: ATORVASTATIN 20 MG TAB PO SCH (19:12)
[2023-05-22] MEDS: oxyCODONE HCL IR 5 MG TAB (IMMEDIATE RELEASE) PO PRN ×3 (01:48→10:46)
[2023-05-22] MEDS: POLYETHYLENE (MIRALAX) 17 GM PACK PO SCH ×2 (05:50→11:46)
[2023-05-22 06:39] LABS: Hemoglobin 9.8 g/dl (12.0-16.0); Mean Corpuscular Hemoglobin 28.1 pg (25.0-34.0); Mean Corpuscular Hgb Conc 32.7 g/dL (32.0-36.0); Mean Platelet Volume 9.4 fL (9.4-12.4); Platelet Count 232 K/uL (130-400); RDW Standard Deviation 50.4 fL (36.4-46.3); Red Blood Count 3.49 M/uL (4.20-5.40); White Blood Count 10.68 K/ul (4.8-10.8)
[2023-05-22] MEDS: dexAMETHasone 6 MG in SYRINGE 0 ML IV SCH (07:23)
[2023-05-22] MEDS: GABAPENTIN 300 MG CAP PO SCH (07:24)
[2023-05-22] MEDS: DULoxetine HCL 30 MG CAP PO SCH (07:24)
[2023-05-22] MEDS: LISINOPRIL/HCTZ 20/25MG 1 TAB PO SCH (07:24)
[2023-05-22] MEDS: MULTIVITAMIN TAB PO SCH (07:24)
[2023-05-22] MEDS: INSULIN ASPART PER UNIT CHARGE SC SCH ×2 (08:05→11:45)
[2023-05-22] MEDS: LANTUS PER UNIT CHARGE SC SCH (08:06)
--- NOTE | 2023-05-22 08:21 | Discharge Summary ---
Date of Service May 22, 2023 Admission HPI Per Admitting Provider This is a 67-year-old female who presents with chronic persistent back and leg pain after failing course of nonoperative care is here for surgical intervention. Principal Diagnosis Lumbar spinal stenosis with neurogenic claudication Discharge Data Allergies Allergy/AdvReac Type Severity Reaction Status Date / Time sulfamethoxazole Allergy swelling Verified 05/19/23 06:40 [From Bactrim] of eyes, lips trimethoprim [From Bactrim] Allergy swelling Verified 05/19/23 06:40 of eyes, lips Consultations 05/19/23 11:17 Consult Hospitalist Routine Procedures Performed Operation Date: 05/19/23 07:45 Actual Procedures p L1-L4 Decompression and Fusion, Spinal Cord Monitoring(Not Applicable) - Serge Vidal DO Ordered Studies 05/19/23 07:45 FL lumbar spine 2-3V Routine Hospital Course (1) Neurogenic claudication due to lumbar spinal stenosis: Patient with lumbar decompression fusion tolerated as well as taken orthopedic floor postoperatively. She progressed appropriately throughout her stay. KIRSTIE drain decreasing well. Excellent strength testing. Pain well-controlled. Subsidy discharged home. Discharge orders instructions from the chart for further review. Total Time Total Time Spent Total Time Spent (In Minutes): 20 minutes Discharge Plan Discharge Items Patient Disposition: Home - Self-Care Reason For Visit: Lumbar Region Spondylolisthesis, Spinal Stenosis Discharge Diagnosis: lumbar stenosis Activity: As commented below Non-emergency contact: Primary Care Provider Call non-emergency contact if: you have any medication questions Follow-up/Referrals: Irwin Mejias MD [Primary Care Provider] - Diet: Regular Addtl Attending Provider Instructions: ACTIVITY RECOMMENDATIONS: SELF CARE INSTRUCTIONS AFTER THORACIC/LUMBAR FUSIONS 1. You may walk to your tolerance. It is good exercise for your legs and back. Expect some back and intermittent leg aches and pains. 2. You may perform "counter-top" level activities (make a sandwich, amena with a project, etc.). 3. No bending or lifting of more than 10 pounds or back twisting of any nature (roll like a log when turning in bed). 4. You may ride in a car for 20-30 minutes at a time. No driving until after your first visit with your doctor. 5. Frequent changes of position and restricting sitting to 30 minutes at a time will help limit the amount of back spasms and stiffness you may experience. 6. You may discontinue the use of ambulatory aids (cane, crutches, etc.) once your strength and confidence allow. 7. 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 Do not take a tub bath, sit in a hot tub or go into a swimming pool until after your first recheck in the office. SPECIAL CARE INSTRUCTIONS: VERY IMPORTANT TO READ AND REVIEW A. Your surgical incision has been closed with a cosmetic suture under the skin that will dissolve in about 6 weeks. In 14 days, you can use a pair of clean scissors and cut the suture that is left outside of the skin at the ends of your incision. 1. The small skin tapes can be removed 7 days after surgery if they have not fallen off by that point. 2. You may keep the wound open to air as much as possible to promote healing after post-op day number 5 unless told otherwise by your doctor. 3. If you think the wound looks like it is becoming infected (redness or worsening drainage) and/or you are experiencing fever, chill or worsening back pain and muscle spasms, contact the office so that we may evaluate you as soon as possible. B. Complications are uncommon, but please contact us if you have any signs or symptoms of: 1. wound infection (fever higher than 102.5 degrees F, redness, separation of wound, drainage, or increasing pain from the incision) 2. blood clots in legs (pain, swelling, redness and warmth in legs) 3. urinary tract infection (fever higher than 102.5 degrees F, burning upon urination or increased frequency of urination) 4. nerve problems (inability to walk on your toes or heels, numbness, loss of bowel or bladder control) 5. any other symptoms that concern you C. Please call the office at if you have any concerns or questions about your operation or recovery. D. No smoking! Smoking drastically decreases the chance of a solid fusion. E. Do not take any anti-inflammatory medications (Indocin, Advil, Motrin, Aspirin, Naprosyn, etc.) as these may inhibit the chance of a solid fusion. Tylenol is okay to take for pain. MANAGING PAIN AFTER SPINAL SURGERY 1. Narcotic medication is intended for short-term use and will be provided for surgical pain. Surgical pain usually lasts for a period of 4-6 weeks. Narcotic medication includes Percocet, Vicodin, Darvocet, Tylenol #3 or Lortab. 2. Longer-term pain is more appropriately treated with non-narcotic medication such as Tylenol ES. 3. Muscle spasm is not appropriately treated with narcotics. Muscle relaxers such as Soma, Flexeril or Skelaxin can be used along with Tylenol ES. 4. Remember that we all live with some "aches and pains". This is not unusual or uncommon after an injury or as we get older. a. Back pain is expected and may include muscle spasms for 4 to 6 weeks after surgery. The pain should gradually improve. If the pain worsens for no apparent reason, please contact the office. b. Intermittent leg pain may also be experienced and should not be concerned about unless it worsens for no apparent reason. If so, please contact the office. 5. We will provide appropriate medication within the normal guidelines of their prescribed use. We will also be very cautious and aware of potential abuse and extended duration of patients' medication needs. a. Pain medications are for your comfort and to assist with sleep and rest so that the tissue can heal. They are not provided in order to return to normal activity and should not be used through the day. To do so or worsening pain at night can result from ongoing tissue damage and development of tolerance to the prescribed medicine. 6. Please allow 2-3 days to process refills. Prescriptions will not be mailed but must be picked up at the office. FOLLOW UP VISIT: Keep your scheduled follow-up appointment. Any questions, please call the office at . Pending Studies at Discharge: No Stand-Alone Forms: My [facility] [employer], Smoking Cessation Medications and DC Order Prescriptions: New oxycodone 5 mg tablet 5 mg PO Q6H PRN (Reason: pain) Qty: 30 0RF tramadol 50 mg tablet 50 mg PO Q6H PRN (Reason: pain, moderate) Qty: 30 0RF Continued multivitamin Tablet 1 tab PO QAM metformin 500 mg Tablet 500 mg PO BID atorvastatin 20 mg Tablet 20 mg PO PM gabapentin 300 mg Capsule 300 mg PO TID lisinopril-hydrochlorothiazide 20-25 mg Tablet 1 tab PO QAM fiber Capsule 1 cap PO QAM duloxetine 30 mg Capsule, Delayed Rel Sprinkle 30 mg PO QAM biotin 1 cap PO QPM Discharge Orders: Discharge Order (Routine); Ordered 05/22/23 Ordered By: Serge Vidal Admission Data Admit Date/Time: 05/19/23 10:07 Attending Provider: Serge Vidal Admit Provider: Serge Vidal Primary Care Provider: Irwin Mejias Other Providers: Matheus Seaman; Adriana Cooper
--- NOTE | 2023-05-22 11:57 | Hospitalist Progress Note ---
Date of Service May 22, 2023 Assessment & Plan (1) Neurogenic claudication due to lumbar spinal stenosis: Plan: This is a 67 y/o female with lumbar spinal stenosis, HTN, DM2, hx Hodgkin's lymphoma in remission, and dyslipidemia who underwent lumbar decompression and fusion today and for whom we have been consulted to assist with post-operative medical management. She is POD #3 - lumbar decompression/fusion - Pain control, DVT prophylaxis, activity per primary service - Encourage incentive spirometry - Labs in AM - CBC, BMP - monitor for blood loss anemia (pre-op Hgb 13.4) (2) Postoperative anemia due to acute blood loss: Plan: Pre op hgb 13.4 Hemoglobin stable around 10, no indication for transfusion likely 2/2 expected surgical blood loss and dilutional component (3) DM type 2 (diabetes mellitus, type 2): Plan: - Hold Metformin during admission - Insulin sliding scale coverage - glycemic pharmacist consulted -appreciate their management (4) HTN (hypertension): Plan: BP currently controlled - Continue outpatient lisinopril-HCTZ (5) HLD (hyperlipidemia): Plan: Chronic, stable - continue outpatient statin therapy Plan Dispo: per primary Admission and Anticipated Discharge Date Admission Date: May 19, 2023 Subjective Back pain controlled leg pain improved. Pt moving gas, no belly pain, reports she will probably move bowel today. Physical Exam Physical Exam: Gen: WD/WN,F, sitting up in bedside chair, NAD, A&O x3 HEENT: Normocephalic, atraumatic, conjunctivae moist, sclerae anicteric, mucous membranes moist. Lung: Clear to Auscultation bilaterally, no wheezes/rales/rhonchi Heart: Regular rate, regular rhythm, no murmurs, rubs, or gallops Abdomen: Soft, NT, ND +BS x 4 Extremities: No edema, lumbar dressing CDI, KIRSTIE drain with serosang drainage Skin: Warm, no rash, negative turgor. Results & Data Results & Data Vital Signs (Past 12 Hours) Vital Signs Temp Pulse Resp BP Pulse Ox O2 Del Method 05/22/23 08:30 36.5 C 16 103/62 96 05/22/23 08:14 Room Air 05/22/23 07:27 36.5 C 93 H 16 103/62 96 Room Air (3) DM type 2 (diabetes mellitus, type 2) Diabetes mellitus director customer insulin use: without director customer use Diabetes mellitus complication status: without complication Qualified Code(s): E11.9 - Type 2 diabetes mellitus without complications (4) HTN (hypertension) Hypertension type: primary hypertension Qualified Code(s): I10 - Essential (primary) hypertension (5) HLD (hyperlipidemia) Hyperlipidemia type: unspecified Qualified Code(s): E78.5 - Hyperlipidemia, unspecified
== END 2023-05-22 13:30 | disposition home or self-care (01) | DRG 454 ==
LOC: ASU 06:00 → 3E 10:07

== ENCOUNTER 2024-06-07 18:50 | Observation (INO) ==
[2024-06-07 19:30] LABS: Hemoglobin 12.6 g/dl (12.0-16.0); Mean Corpuscular Hemoglobin 27.3 pg (25.0-34.0); Mean Corpuscular Hgb Conc 34.1 g/dL (32.0-36.0); Mean Corpuscular Volume 80.3 fL (80.0-100.0); Mean Platelet Volume 9.2 fL (9.4-12.4); Platelet Count 214 K/uL (130-400); RDW Coefficient of Variation 15.1 % (11.5-14.5); RDW Standard Deviation 43.8 fL (36.4-46.3); Red Blood Count 4.61 M/uL (4.20-5.40); White Blood Count 12.17 K/ul (4.8-10.8)
[2024-06-07 19:43] LABS: Alanine Aminotransferase 21 U/L (7-52); Albumin Globulin Ratio 1.8 (0.9-2); Albumin Level 4.6 gm/dl (3.4-5.0); Alkaline Phosphatase 101 U/L (34-104); Anion Gap 11 (3-11); Aspartate Aminotransferase 31 U/L (13-39); Bilirubin,Total 0.7 mg/dl (0.2-1.0); Blood Urea Nitrogen 23 mg/dl (6-23); Calcium 9.5 mg/dl (8.6-10.3); Carbon Dioxide 23 mmol/L (21-32); Chloride 100 mmol/L (98-107); Globulin 2.6 gm/dl (2.5-4.0); Glucose 151 mg/dl (70-99(Fasting)); Magnesium 1.8 mg/dl (1.7-2.4); Potassium 3.6 mmol/L (3.5-5.1); Sodium 134 mmol/L (136-145); Total Protein 7.2 gm/dl (6.0-8.3)
[2024-06-07 19:56] LABS: Partial Thromboplastin Ratio 0.9; Partial Thromboplastin Time 23 Seconds (21-31); Prothrombin Time 10.6 Seconds (9.0-12.0)
--- NOTE | 2024-06-07 19:56 | CT Scan Report ---
EXAM: CT Head Without Intravenous Contrast INDICATION: Unspecified neurologic deficit. TECHNIQUE: Axial computed tomography images of the head/brain without intravenous contrast. Sagittal and/or coronal reformats are provided. Sagittal and coronal reformatted images were created and reviewed. This CT exam was performed using one or more of the following dose reduction techniques: automated exposure control, adjustment of the mA and/or kV according to patient size, and/or use of iterative reconstruction technique. COMPARISON: No relevant prior studies available. FINDINGS: Limitations: None. Brain and extra-axial spaces: There is age appropriate cortical atrophy and chronic ischemic periventricular white matter hypodensity. No acute infarct, hemorrhage or mass noted. Bones/joints: No acute changes. Soft tissues: No significant abnormality noted. Vasculature: No acute abnormality noted. Sinuses: No layering fluid in the visualized portions of the paranasal sinuses. Mastoid air cells: No mastoid effusion. Orbits: No significant abnormality noted. IMPRESSION: Cerebral atrophy. No acute changes. ACT 112: Negative or not required by law. Electronically signed by Brittany Neal 06-07-2024 7:56 PM
[2024-06-07] MEDS: ONDANSETRON INJ 2 MG/ML 2 ML VIAL IV STA ×2 (20:33→21:50)
[2024-06-07] MEDS: SODIUM CHLORIDE 0.9% 500 ML IV ONE (20:36)
[2024-06-07] MEDS: ACETAMINOPHEN 1,000 MG/100 ML VIAL IV STA (20:41)
[2024-06-07 20:45] LABS: Appearance Urine Cloudy (Clear); Bacteria Urine Automated None Seen (None Seen); Bilirubin Urine Negative (Negative); Blood Urine 1+ (Negative); Cast Urine Automated 0-2 /lpf (0-2); Color Urine Yellow; Epithelial Cell Urine Auto 0-2 /hpf (0-2); Glucose Urine UA Negative (Negative); Ketones Urine 2+ (Negative); Leukocyte Esterase Urine Negative (Negative); Nitrite Urine Negative (Negative); Protein Urine 1+ (Negative); RBC Urine Automated 0-2 /hpf (0-2); Urobilinogen Urine Negative (Negative); WBC Urine Automated 0-5 /hpf (0-5); pH Urine 5.5 (4.5-7.5)
--- NOTE | 2024-06-07 21:05 | XRay Report ---
EXAM: XR chest 1V portable CLINICAL HISTORY: Stroke alert TECHNIQUE: An X-ray image of the chest is obtained in AP projection. COMPARISON: 05/08/2023 CR FINDINGS: Pulmonary Parenchyma: Prominent bronchovascular markings in both lungs. No evidence of consolidation, collapse, or focal opacities. No pulmonary nodules are identified. No evidence of pleural effusion or pleural thickening. Heart and Mediastinum: Heart size is borderline enlarged. No mediastinal widening or masses. No hilar or mediastinal lymphadenopathy. Bony Thorax: The bony thorax appears intact without fractures or deformities. Soft Tissues: Soft tissues overlying the chest wall are unremarkable. IMPRESSION: 1. Prominent bronchovascular markings in both lungs. This is non-specific or may be due to congestion. Stable. Needs clinical correlation 2. Borderline cardiomegaly. New likely due to the AP view. Electronically signed by Sammy Dodd 06-07-2024 9:05 PM
[2024-06-07] MEDS: SODIUM CHLORIDE 0.9% 1,000 ML IV SCH (21:21)
[2024-06-07 21:58] LABS: Adenovirus PCR Not Detected (NotDetected); Bordetella parapertussis PCR Not Detected (NotDetected); Bordetella pertussis PCR Not Detected (NotDetected); Chlamydia pneumoniae PCR Not Detected (NotDetected); Coronavirus 229E PCR Not Detected (NotDetected); Coronavirus CoV-2 (COVID19)PCR Not Detected (NotDetected); Coronavirus HKU1 PCR Not Detected (NotDetected); Coronavirus NL63 PCR Not Detected (NotDetected); Coronavirus OC43PCR Not Detected (NotDetected); Human Metapneumovirus PCR Not Detected (NotDetected); Influenza A PCR Not Detected (NotDetected); Influenza B PCR Not Detected (NotDetected); Mycoplasma pneumoniae PCR Not Detected (NotDetected); Parainfluenza Virus 1 PCR Not Detected (NotDetected); Parainfluenza Virus 2 PCR Not Detected (NotDetected); Parainfluenza Virus 3 PCR Not Detected (NotDetected); Parainfluenza Virus 4 PCR Not Detected (NotDetected); Respiratory Syncytial VirusPCR Not Detected (NotDetected); Rhinovirus/Enterovirus PCR Not Detected (NotDetected)
[2024-06-07] MEDS: OPTIRAY 320 100ml IV ONE (22:56)
--- NOTE | 2024-06-07 22:57 | Emergency Department Note ---
Impression & Plan Acute confusion, Nausea, Leukocytosis, Right sided abdominal pain, Contusion of lip ED Provider Note NAME: ERROL MAC AGE: 69 SEX: Female INFORMANT: Patient and family ED PROVIDER(S): Vicente Carnes MD CHIEF COMPLAINT: Confusion PLAN: Disposition: Admitted Outpatient prescription management: none Referral: None MEDICAL DECISION MAKING: Patient was evaluated. She could not provide any details from the recent days. Does not remember what happened. She had blood on her lips and swelling to the lower aspect. No lacerations. No other traumatic findings could be found. She did not bite her tongue. There is no reported 100 but record indicates that she typically runs 90-100. She the patient had a chest x-ray shows some vascular congestion but her O2 saturation slight leukocytosis on only revealed mild hyperglycemia. The patient was hydrated and treated with Zofran. Patient was also given IV Tylenol. She required a second dose of Zofran. Urinalysis showed some trace blood but no clear signs of infection. Head CT imaging was negative. Patient had no neck pain or stiffness. No meningeal findings. Given the trace blood and recurrent nausea the patient had repeat abdominal examination. Initially she was not complaining of any pain however she was then noting right sided abdominal pain in the right upper quadrant and right lower quadrant. CT imaging was ordered. CT imaging of the abdomen pelvis did not reveal any acute intra-abdominal process. Given the headache and confusion discussed lumbar puncture with the patient. [facility] Patient was evaluated in the ER for admission. Lumbar puncture was performed by me as noted below. CSF sent to the lab. Cell count not consistent with a meningitis/encephalitis. Further management and care will be done by . Patient's family was present and were updated. I gave my usual and customary discussion regarding this issue. Care/management discussed with: shared services manager Level of care consideration(s): After review of the information above and other included data, I feel the patient requires escalation of care to admission Triage Nursing notes: reviewed and agree them. Vital Signs: reviewed and remarkable for borderline tachycardia however record review indicates that this is consistent for the patient with previous hospital visits. Additional History obtained from: Family is present and helps with history. No prior history of the same. Chronic Medical/Social Conditions affecting care: Diabetes Prior/ Outside/ External records reviewed: Patient's prior hospitalization discharge summary reviewed from 2023. Patient was admitted and treated for her spinal issues with surgery and lumbar fusion. Differential Diagnosis: Infection, hypoglycemia, electrolyte abnormalities, overdose, toxicologic, cardiac sources, intracerebral event, neurologic, trauma, as well as other pathologies. Diagnostics, independently interpreted by me: ECG: Twelve-lead ECG reveals a sinus tachycardia at 103 bpm. Poor R wave progression. No ST elevation. Cardiac Monitoring: Cardiac monitoring ordered by me: The patient was placed on continuous cardiac monitoring and observed. It revealed a normal sinus rhythm at 99 beats per minute without ectopy or evidence of dysrhythmia. Medical decision rules: none Imaging studies: Head CT: A noncontrast CT scan of the head was performed and was negative for tumor, fracture, intracranial hemorrhage, or other acute pathology. Chest x-ray reveals some pulmonary vascular congestion but no focal infiltrate. HPI: 69 year old Female arrives for evaluation of confusion. This started possibly yesterday. Patient does not remember any details from today. The patient also notes the following associated symptoms, nausea, blood on the lip of which she is not sure what happened, dizziness. Patient denied any pain. The patient has taken no medication for relieving factors. Current pain is rated as 0/10. On noted having a mild headache she is unsure when that started. Pt denies fevers, chills, diaphoresis, visual changes, neck pain, chest pain, breathing difficulties, diarrhea, abdominal pain, back pain, melena, hematochezia, urinary symptoms, numbness, weakness, lymphadenopathy, rash, or other complaints. PAST MEDICAL HISTORY: See Below, diabetes, hypertension, chronic back pain PAST SURGICAL HISTORY: See Below, spinal fusion SOCIAL HISTORY: See Below, non-smoker HOME MEDICATIONS: See Below ALLERGIES: See Below VITALS: See Below PHYSICAL EXAMINATION: GENERAL: Awake, alert but tired-appearing, in no distress HENT: Normocephalic, atraumatic except for a swollen lower lip with contusion on the inner aspect. Dried blood noted on the lips. Oropharynx unremarkable. EYES: Normal conjunctiva. Sclera non-icteric. PERRLA. EOMI. NECK: Inspection normal. Non-tender. Supple. No nuchal rigidity. FROM. No masses. RESPIRATORY: Clear to auscultation. No wheezes. No rales. Normal respiratory effort. CARDIAC: Normal rate. Normal rhythm. No murmurs. No rubs. Extremities warm and well perfused. Pulses equal. No JVD. GI: Soft, non-distended. No tenderness to palpation. No rebound or guarding. No masses. RECTAL: Deferred. MUSCULOSKELETAL: Atraumatic. Chest examination reveals no tenderness. The back is symmetrical on inspection without obvious abnormality. There is no CVA tenderness to palpation. No joint edema. LOWER EXTREMITIES: Calves are equal size bilaterally and non-tender. No edema. No discoloration. NEURO: Relatively normal sensorium however the patient cannot provide any details to today or yesterday. No focal sensory or motor deficits noted other than she notes chronic decree sensation of the lower extremities since her spine surgery. SKIN: No rash or jaundice noted. PROCEDURES: Lumbar Puncture Indication: Change in mental status. Verbal consent was obtained after the risks and benefits were explained, including but not limited to headache, bleeding/clotting, scarring, infection, pain, and bone/joint/nerve damage. At this time, the risks of the procedure are less than the risks of NOT performing the procedure. A time out was taken and the correct patient and site identified. The patient was placed in the left lateral decubitus position and the back was prepped with betadine and draped in the standard fashion. The L3 intervertebral space was identified, anesthetized locally with 1% lidocaine without epinephrine, and the spinal needle was inserted through the skin with the bevel parallel to the dural fibers. Research Associate Molecular [employer] was present to help with positioning of the patient. Patient did move a little bit. Patient's prior spinal surgery scar tissue made landmarks hawkins challenging but they were palpable. 1 redirection was necessary. The needle was carefully advanced into the lumbar cistern and 4 tubes of clear CSF was obtained after initial pink flush. The stylet was replaced and the needle was removed. A bandaid was placed and the patient was placed in the supine position. The patient tolerated the procedure well and there were no complications. CRITICAL CARE: none OBSERVATION NOTE: none Past Med/Surg History Problem List (Updated 06/07/24 @ 22:57 by Vicente Carnes MD) Contusion of lip (Acute) Right sided abdominal pain (Acute) Leukocytosis (Acute) Nausea (Acute) Acute confusion (Acute) Postoperative anemia due to acute blood loss HLD (hyperlipidemia) HTN (hypertension) DM type 2 (diabetes mellitus, type 2) Neurogenic claudication due to lumbar spinal stenosis Encounter for pre-operative examination Medical History (Updated 06/07/24 @ 22:57 by Vicente Carnes MD) History of blood transfusion In setting of cancer/treatment- 2018/2018 History of COVID-19 01/2023 ([facility])- fever, cough, loss of taste/smell > resolved Abnormal pulmonary function test "Resolved" Hx during cancer treatment Spinal stenosis Osteoarthritis History of Hodgkin's lymphoma Dx 2018 Surgical History PONV (postoperative nausea and vomiting) History of left knee replacement History of right knee joint replacement History of appendectomy History of tonsillectomy and adenoidectomy History of cholecystectomy History of laminectomy x2 History of esophagogastroduodenoscopy (EGD) History of colonoscopy History of vascular access device subsequent removal Social History Smoking Status: Never smoker Second Hand Exposure: No; Do You Dip or Chew Tobacco: No; Hx Alcohol Use: Yes Hx Substance Use: No Preferred Language: Welsh Communication Ability: Effective Inter Fold Roll Cutter Required: No Beliefs That Will Affect Care: None and Buddhism Buddhism Beliefs: Zoroastrian Current Living Situation: Alone Feels Safe at Home: Yes Assistive Devices: Walker Allergies Allergies Allergy/AdvReac Type Severity Reaction Status Date / Time sulfamethoxazole Allergy swelling Verified 05/19/23 06:40 [From Bactrim] of eyes, lips trimethoprim [From Bactrim] Allergy swelling Verified 05/19/23 06:40 of eyes, lips Home Meds Home Medications Medication Instructions Recorded Confirmed atorvastatin 20 mg tablet 20 mg PO PM 05/02/23 05/19/23 biotin 1 cap PO QPM 05/02/23 05/19/23 duloxetine 30 mg capsule,delayed 30 mg PO QAM 05/02/23 05/19/23 release sprinkle fiber 1 cap PO QAM 05/02/23 05/19/23 gabapentin 300 mg capsule 300 mg PO TID 05/02/23 05/19/23 lisinopril 20 1 tab PO QAM 05/02/23 05/19/23 mg-hydrochlorothiazide 25 mg tablet metformin 500 mg tablet 500 mg PO BID 05/02/23 05/19/23 multivitamin 1 tab PO QAM 05/02/23 05/19/23 Previous Rx's Medication Instructions Recorded oxycodone 5 mg tablet 5 mg PO Q6H PRN pain #30 tabs 05/19/23 tramadol 50 mg tablet 50 mg PO Q6H PRN pain, moderate 05/19/23 #30 tabs Results & Data (ED) Vital Signs Vital Signs - 24 hr 06/07/24 18:57 06/07/24 19:25 06/07/24 19:30 Temperature 37.3 C Temperature Source Oral Pulse Rate 109 H 98 H 96 H Pulse Rate [Apical] Pulse Rate from SpO2 Sensor 97 H Respiratory Rate 16 15 Respiratory Effort / Characteristics Non-Labored Spontaneous Respiratory Depth Normal Respiratory Pattern Regular Blood Pressure 130/71 133/75 Blood Pressure [Right Arm] Blood Pressure Mean 90 94 Blood Pressure Mean [Right Arm] Pulse Oximetry 97 96 Oxygen Delivery Method Room Air Room Air Sepsis Recent Fever Within 48 Hours No Sepsis New/Unexplained Change in Mental Status No Sepsis Action Taken by Nursing No Action Required 06/07/24 21:21 06/07/24 21:23 06/07/24 21:24 Temperature Temperature Source Pulse Rate 102 H Pulse Rate [Apical] 99 H Pulse Rate from SpO2 Sensor Respiratory Rate 13 Respiratory Effort / Characteristics Non-Labored Spontaneous Respiratory Depth Normal Respiratory Pattern Regular Blood Pressure Blood Pressure [Right Arm] 125/66 Blood Pressure Mean Blood Pressure Mean [Right Arm] 85 Pulse Oximetry 95 94 94 Oxygen Delivery Method Room Air Room Air Sepsis Recent Fever Within 48 Hours Sepsis New/Unexplained Change in Mental Status Sepsis Action Taken by Nursing 06/07/24 23:00 06/07/24 23:21 Temperature Temperature Source Pulse Rate 90 Pulse Rate [Apical] 94 H Pulse Rate from SpO2 Sensor Respiratory Rate 21 Respiratory Effort / Characteristics Non-Labored Spontaneous Respiratory Depth Normal Respiratory Pattern Regular Blood Pressure Blood Pressure [Right Arm] 111/51 L Blood Pressure Mean Blood Pressure Mean [Right Arm] 71 Pulse Oximetry 94 Oxygen Delivery Method Room Air Sepsis Recent Fever Within 48 Hours Sepsis New/Unexplained Change in Mental Status Sepsis Action Taken by Nursing Laboratory Data 06/07/24 19:10 06/07/24 19:10 Lab Results 06/07/24 06/07/24 06/07/24 Range/Units 19:10 19:11 20:02 WBC 12.17 H (4.8-10.8) K/ul RBC 4.61 (4.20-5.40) M/uL Hgb 12.6 (12.0-16.0) g/dl Hct 37.0 (37.0-47.0) % MCV 80.3 (80.0-100.0) fL MCH 27.3 (25.0-34.0) pg MCHC 34.1 (32.0-36.0) g/dL RDW Std Deviation 43.8 (36.4-46.3) fL RDW Coeff of Karen 15.1 H (11.5-14.5) % Plt Count 214 (130-400) K/uL MPV 9.2 L (9.4-12.4) fL PT 10.6 (9.0-12.0) Seconds INR 1.0 (0.9-1.1) APTT 23 (21-31) Seconds PTT Ratio 0.9 Sodium 134 L (136-145) mmol/L Potassium 3.6 (3.5-5.1) mmol/L Chloride 100 (98-107) mmol/L Carbon Dioxide 23 (21-32) mmol/L Anion Gap 11 (3-11) BUN 23 (6-23) mg/dl Creatinine 0.82 (0.6-1.2) mg/dl Est Cr Clr Drug Dosing Not Reportable eGFR 76.43 BUN/Creatinine Ratio 28.0 H (10-20) Glucose 151 H (70-99(Fasting)) mg/dl POC Glucose 155 H (70-99) mg/dl Calcium 9.5 (8.6-10.3) mg/dl Magnesium 1.8 (1.7-2.4) mg/dl Total Bilirubin 0.7 (0.2-1.0) mg/dl AST 31 (13-39) U/L ALT 21 (7-52) U/L Alkaline Phosphatase 101 (34-104) U/L Total Protein 7.2 (6.0-8.3) gm/dl Albumin 4.6 (3.4-5.0) gm/dl Globulin 2.6 (2.5-4.0) gm/dl Albumin/Globulin Ratio 1.8 (0.9-2) Procalcitonin 0.04 (0-0.5) ng/ml Urine Color Urine Appearance (Clear) Urine pH (4.5-7.5) Ur Specific [place] (1.000-1.030) Urine Protein (Negative) Urine Glucose (UA) (Negative) Urine Ketones (Negative) Urine Blood (Negative) Urine Nitrite (Negative) Urine Bilirubin (Negative) Urine Urobilinogen (Negative) Ur Leukocyte Esterase (Negative) Urine WBC (Auto) (0-5) /hpf Urine RBC (Auto) (0-2) /hpf U Hyaline Cast (Auto) (0-2) /lpf U Epithel Cells (Auto) (0-2) /hpf Urine Bacteria (Auto) (None Seen) Adenovirus (PCR) Not Detected (NotDetected) B. pertussis DNA (PCR) Not Detected (NotDetected) B.parapertussis DNA PCR Not Detected (NotDetected) C. pneumoniae DNA (PCR) Not Detected (NotDetected) Coronavirus OC43 (PCR) Not Detected (NotDetected) Coronavirus HKU1 (PCR) Not Detected (NotDetected) Coronavirus 229E (PCR) Not Detected (NotDetected) SARS-CoV-2 (PCR) Not Detected (NotDetected) Coronavirus NL63 (PCR) Not Detected (NotDetected) Human Metapneumovir PCR Not Detected (NotDetected) Influenza Type A (PCR) Not Detected (NotDetected) Influenza Type B (PCR) Not Detected (NotDetected) M. pneumoniae (PCR) Not Detected (NotDetected) Parainfluenza 1 (PCR) Not Detected (NotDetected) Parainfluenza 2 (PCR) Not Detected (NotDetected) Parainfluenza 3 (PCR) Not Detected (NotDetected) Parainfluenza 4 (PCR) Not Detected (NotDetected) RSV (PCR) Not Detected (NotDetected) Entero/Rhino (PCR) Not Detected (NotDetected) 06/07/24 Range/Units 20:03 WBC (4.8-10.8) K/ul RBC (4.20-5.40) M/uL Hgb (12.0-16.0) g/dl Hct (37.0-47.0) % MCV (80.0-100.0) fL MCH (25.0-34.0) pg MCHC (32.0-36.0) g/dL RDW Std Deviation (36.4-46.3) fL RDW Coeff of Karen (11.5-14.5) % Plt Count (130-400) K/uL MPV (9.4-12.4) fL PT (9.0-12.0) Seconds INR (0.9-1.1) APTT (21-31) Seconds PTT Ratio Sodium (136-145) mmol/L Potassium (3.5-5.1) mmol/L Chloride (98-107) mmol/L Carbon Dioxide (21-32) mmol/L Anion Gap (3-11) BUN (6-23) mg/dl Creatinine (0.6-1.2) mg/dl Est Cr Clr Drug Dosing eGFR BUN/Creatinine Ratio (10-20) Glucose (70-99(Fasting)) mg/dl POC Glucose (70-99) mg/dl Calcium (8.6-10.3) mg/dl Magnesium (1.7-2.4) mg/dl Total Bilirubin (0.2-1.0) mg/dl AST (13-39) U/L ALT (7-52) U/L Alkaline Phosphatase (34-104) U/L Total Protein (6.0-8.3) gm/dl Albumin (3.4-5.0) gm/dl Globulin (2.5-4.0) gm/dl Albumin/Globulin Ratio (0.9-2) Procalcitonin (0-0.5) ng/ml Urine Color Yellow Urine Appearance Cloudy A (Clear) Urine pH 5.5 (4.5-7.5) Ur Specific [place] 1.020 (1.000-1.030) Urine Protein 1+ H (Negative) Urine Glucose (UA) Negative (Negative) Urine Ketones 2+ H (Negative) Urine Blood 1+ H (Negative) Urine Nitrite Negative (Negative) Urine Bilirubin Negative (Negative) Urine Urobilinogen Negative (Negative) Ur Leukocyte Esterase Negative (Negative) Urine WBC (Auto) 0-5 (0-5) /hpf Urine RBC (Auto) 0-2 (0-2) /hpf U Hyaline Cast (Auto) 0-2 (0-2) /lpf U Epithel Cells (Auto) 0-2 (0-2) /hpf Urine Bacteria (Auto) None Seen (None Seen) Adenovirus (PCR) (NotDetected) B. pertussis DNA (PCR) (NotDetected) B.parapertussis DNA PCR (NotDetected) C. pneumoniae DNA (PCR) (NotDetected) Coronavirus OC43 (PCR) (NotDetected) Coronavirus HKU1 (PCR) (NotDetected) Coronavirus 229E (PCR) (NotDetected) SARS-CoV-2 (PCR) (NotDetected) Coronavirus NL63 (PCR) (NotDetected) Human Metapneumovir PCR (NotDetected) Influenza Type A (PCR) (NotDetected) Influenza Type B (PCR) (NotDetected) M. pneumoniae (PCR) (NotDetected) Parainfluenza 1 (PCR) (NotDetected) Parainfluenza 2 (PCR) (NotDetected) Parainfluenza 3 (PCR) (NotDetected) Parainfluenza 4 (PCR) (NotDetected) RSV (PCR) (NotDetected) Entero/Rhino (PCR) (NotDetected) Administered Medications Sodium Chloride (Nss) 1,000 mls @ 60 mls/hr IV .[id number] ONE Stop: 06/08/24 16:06 Last Admin: 06/08/24 00:33 Dose: 60 mls/hr Documented By: MED Discontinued Medications Sodium Chloride (Nss) 500 mls @ 999 mls/hr IV .Q31M ONE Stop: 06/07/24 20:44 Last Infusion: 06/07/24 21:06 Dose: Infused Documented By: spring manufacturing set up technician: 06/07/24 20:36 Dose: 999 mls/hr Documented By: MED Sodium Chloride (Nss) 1,000 mls @ 125 mls/hr IV .Q8H KP Stop: 06/08/24 20:14 Last Admin: 06/07/24 21:21 Dose: 125 mls/hr Documented By: MED Acetaminophen (Ofirmev) 1,000 mg in 100 mls @ 400 mls/hr IV NOW STA Stop: 06/07/24 20:31 Last Infusion: 06/07/24 23:01 Dose: Infused Documented By: Admin: 06/07/24 20:41 Dose: 400 mls/hr Documented By: MANAS Ioversol (Optiray 320 100ml) 100 ml IV ONCE ONE Stop: 06/07/24 22:56 Last Admin: 06/07/24 22:56 Dose: 93 ml Documented By: BINDU Ondansetron HCl (Ondansetron Inj 2 Mg/Ml 2 Ml Vial) 4 mg IV NOW STA Stop: 06/07/24 20:15 Last Admin: 06/07/24 20:33 Dose: 4 mg Documented By: MANAS Ondansetron HCl (Ondansetron Inj 2 Mg/Ml 2 Ml Vial) 4 mg IV NOW STA Stop: 06/07/24 21:37 Last Admin: 06/07/24 21:50 Dose: 4 mg Documented By: MANAS Imaging Data Radiologist's Impression: Chest X-Ray 06/07/24 19:01 EXAM: XR chest 1V portable CLINICAL HISTORY: Stroke alert TECHNIQUE: An X-ray image of the chest is obtained in AP projection. COMPARISON: 05/08/2023 CR FINDINGS: Pulmonary Parenchyma: Prominent bronchovascular markings in both lungs. No evidence of consolidation, collapse, or focal opacities. No pulmonary nodules are identified. No evidence of pleural effusion or pleural thickening. Heart and Mediastinum: Heart size is borderline enlarged. No mediastinal widening or masses. No hilar or mediastinal lymphadenopathy. Bony Thorax: The bony thorax appears intact without fractures or deformities. Soft Tissues: Soft tissues overlying the chest wall are unremarkable. IMPRESSION: 1. Prominent bronchovascular markings in both lungs. This is non-specific or may be due to congestion. Stable. Needs clinical correlation 2. Borderline cardiomegaly. New likely due to the AP view. Electronically signed by Sammy Dodd 06-07-2024 9:[address] 06/07/24 19:01 EXAM: CT Head Without Intravenous Contrast INDICATION: Unspecified neurologic deficit. TECHNIQUE: Axial computed tomography images of the head/brain without intravenous contrast. Sagittal and/or coronal reformats are provided. Sagittal and coronal reformatted images were created and reviewed. This CT exam was performed using one or more of the following dose reduction techniques: automated exposure control, adjustment of the mA and/or kV according to patient size, and/or use of iterative reconstruction technique. COMPARISON: No relevant prior studies available. FINDINGS: Limitations: None. Brain and extra-axial spaces: There is age appropriate cortical atrophy and chronic ischemic periventricular white matter hypodensity. No acute infarct, hemorrhage or mass noted. Bones/joints: No acute changes. Soft tissues: No significant abnormality noted. Vasculature: No acute abnormality noted. Sinuses: No layering fluid in the visualized portions of the paranasal sinuses. Mastoid air cells: No mastoid effusion. Orbits: No significant abnormality noted. IMPRESSION: Cerebral atrophy. No acute changes. ACT 112: Negative or not required by law. Electronically signed by Brittany Neal 06-07-2024 7:56 PM Abdomen/Pelvis CT 06/07/24 22:24 Exam(s): CT ABDOMEN + PELVIS With Contrast IV Amt: 93 cc opti 320 EXAM: CT Abdomen and Pelvis With Intravenous Contrast CLINICAL HISTORY: Reason for exam: right abd pain. TECHNIQUE: Axial computed tomography images of the abdomen and pelvis with intravenous contrast. CTDI is 23.97 mGy and DLP is 1121.62 mGy-cm. Automated exposure control was utilized for the study. A dose lowering technique was utilized adhering to the principles of ALARA. CONTRAST: Patient received 93 cc opti 320 of IV contrast COMPARISON: No relevant prior studies available. FINDINGS: Lung bases: No consolidation. ABDOMEN: Liver: The liver is enlarged.. Gallbladder and bile ducts: Patient is status post cholecystectomy. There is some mild biliary ductal dilatation. Pancreas: No mass. No ductal dilation. Spleen: No splenomegaly. Adrenals: There is a 2.1 cm nodule in the right adrenal gland. There is a 1.3 cm nodule in the left adrenal gland Kidneys and ureters: . No hydronephrosis. There are rounded lucencies within the kidneys. Stomach and bowel: The stomach is decompressed. There is air and stool noted in the colon. There are some mildly distended air-filled loops of small bowel. The overall bowel gas pattern may represent an ileus.. PELVIS: Appendix: The appendix is not visualized. Bladder: No calculi are noted within the bladder.. Reproductive: Unremarkable as visualized. ABDOMEN and PELVIS: Intraperitoneal space: No free air. No significant fluid collection. Bones/joints: There are degenerative and postoperative changes involving the spine.. Soft tissues: There are postoperative changes involving the right inguinal region.. Vasculature: There are atherosclerotic changes. No abdominal aortic aneurysm. Lymph nodes: No enlarged lymph nodes. IMPRESSION: The patient is status post cholecystectomy. There is some mild biliary ductal dilatation. There are possible renal cysts. There are bilateral adrenal gland nodules which may represent adenomas. Hepatomegaly See discussion above Electronically signed by: Alexei Mauricio MD 06/07/24 23:47 PM Discharge Plan Visit Data Chief Complaint: TIA Symptoms Stated Complaint: CONFUSION, NAUSEA, MEMORY ISSUES ED Provider: Vicente Carnes Discharge Problem: Acute confusion, Nausea, Leukocytosis, Right sided abdominal pain, Contusion of lip Patient Disposition: Admitted As Inpatient Discharge Instructions Interventions: ED Discharge Assessment Last Done: 06/08/24 00:39
--- NOTE | 2024-06-07 23:32 | History & Physical Report ---
Date of Service June 07, 2024 Assessment & Plan (1) Encephalopathy: Plan: Encephalopathy Multifactorial marked clinical dehydration given hemoconcentration on blood work Home narcotics/neuropsychotropic medication combo possibly contributory Rule out seizures given lip injury of unclear mechanism hypertension, BP on the lower side Hyperlipidemia on statin Rx Hodgkin's lymphoma status postchemotherapy, recent back surgery. DM2 on oral medications, well-controlled as of recent hemoglobin A1c of 5.7 last month recent back surgery OBS Medical telemetry IVF, hold home diuretic until patient euvolemic Hold narcotics and neuropsychotropic medications for now EEG ISS BG goal 1 10-1 40 DVT prophylaxis. SCDs re: lip trauma Full code Patient son requesting updates providers. Mr. Florencio Carrillo, contact #[phone] Text document was generated using [employer] voice recognition software. It may contain grammatical or spelling errors. Kindly contact undersigned for clarification of any documentation item in question. History of Present Illness Chief Complaint: Confusion Primary Care Provider: Dr. Chadwick History obtained from patient, family, and records. Limited history from patient secondary to disorientation. Medical history significant for hypertension, hyperlipidemia, DM2 on oral medications, GERD, Hodgkin's lymphoma status postchemotherapy, recent back surgery. Recent confinement under Orthopedics spine service 3 weeks ago for LSS status post decompression surgery. Patient discharged on oxycodone and tramadol as needed medications. Hemoglobin 9.8 at time of discharge. Patient noted to be confused and disoriented today. Denies headache symptoms, chest pain, SOB. Mild achy right-sided abdominal pain. No unusual back pain. Patient not sure about appetite. 1 bottle of beer yesterday. Denies abuse. Patient noted to have blood on the lips but no tongue biting. Patient not sure how injury happened. Patient brought to ER for evaluation. Medical History as above Surgical History : Back surgery, breast biopsy, lymph node biopsy, vascular procedures, appendectomy, knee surgeries, tonsillectomy/adenoidectomy, cholecystectomy Family History : Hypertension Personal/Social history : Non-smoker, occasional EtOH intake, retired dental assistant track coach Allergies Allergy/AdvReac Type Severity Reaction Status Date / Time sulfamethoxazole Allergy swelling Verified 05/19/23 06:40 [From Bactrim] of eyes, lips trimethoprim [From Bactrim] Allergy swelling Verified 05/19/23 06:40 of eyes, lips Home Medications Medication Instructions Recorded Confirmed Type atorvastatin 20 mg tablet 20 mg PO PM 05/02/23 05/19/23 History biotin 1 cap PO QPM 05/02/23 05/19/23 History duloxetine 30 mg capsule,delayed 30 mg PO QAM 05/02/23 05/19/23 History release sprinkle fiber 1 cap PO QAM 05/02/23 05/19/23 History gabapentin 300 mg capsule 300 mg PO TID 05/02/23 05/19/23 History lisinopril 20 1 tab PO QAM 05/02/23 05/19/23 History mg-hydrochlorothiazide 25 mg tablet metformin 500 mg tablet 500 mg PO BID 05/02/23 05/19/23 History multivitamin 1 tab PO QAM 05/02/23 05/19/23 History oxycodone 5 mg tablet 5 mg PO Q6H PRN pain #30 tabs 05/19/23 Rx tramadol 50 mg tablet 50 mg PO Q6H PRN pain, moderate 05/19/23 Rx #30 tabs Past Med/Surg History Problem List (Updated 06/08/24 @ 01:55 by Fransico Guillen MD) Encephalopathy Contusion of lip (Acute) Right sided abdominal pain (Acute) Leukocytosis (Acute) Nausea (Acute) Acute confusion (Acute) Postoperative anemia due to acute blood loss HLD (hyperlipidemia) HTN (hypertension) DM type 2 (diabetes mellitus, type 2) Neurogenic claudication due to lumbar spinal stenosis Encounter for pre-operative examination Medical History (Updated 06/08/24 @ 01:55 by Fransico Guillen MD) History of blood transfusion In setting of cancer/treatment- 2017/2018 History of COVID-19 01/2023 ([facility])- fever, cough, loss of taste/smell > resolved Abnormal pulmonary function test "Resolved" Hx during cancer treatment Spinal stenosis Osteoarthritis History of Hodgkin's lymphoma Dx 2018 Surgical History PONV (postoperative nausea and vomiting) History of left knee replacement History of right knee joint replacement History of appendectomy History of tonsillectomy and adenoidectomy History of cholecystectomy History of laminectomy x2 History of esophagogastroduodenoscopy (EGD) History of colonoscopy History of vascular access device subsequent removal Social History Smoking Status: Former smoker Second Hand Exposure: No; Do You Dip or Chew Tobacco: No; Hx Alcohol Use: Yes Hx Substance Use: No Preferred Language: Andorran Communication Ability: Effective Rn Psych Required: No Beliefs That Will Affect Care: None Current Living Situation: Alone Current Living Situation Comment: in a condo Feels Safe at Home: Yes Assistive Devices: Walker Review of Systems Review of Systems: Could not be reliably obtained secondary to disorientation Physical Exam Physical Exam: GENERAL: Disoriented, comfortable, no respiratory distress SKIN: Pallor, warm HEENT: Bespectacled, pale palpebral conjunctivae, no ptosis, dry buccal mucosa NECK : Supple, no tenderness CHEST : CTA, no tenderness HEART : RRR, no obvious murmurs ABDOMEN: Some distention, nontender EXTREMITIES : No LE swelling/tenderness, palpable pulses, no other conspicuous deformities noted NEUROLOGIC : Disoriented, no facial asymmetry, gait and stance not assessed Results & Data Results & Data Vital Signs (Past 12 Hours) Vital Signs Temp Pulse Pulse Resp BP BP Pulse Ox 06/07/24 23:21 90 06/07/24 23:00 94 H 21 111/51 L 94 06/07/24 21:24 102 H 94 06/07/24 21:23 94 06/07/24 21:21 99 H 13 125/66 95 06/07/24 19:30 96 H 15 133/75 96 06/07/24 19:25 98 H 06/07/24 18:57 37.3 C 109 H 16 130/71 97 O2 Del Method 06/07/24 23:21 06/07/24 23:00 Room Air 06/07/24 21:24 06/07/24 21:23 Room Air 06/07/24 21:21 Room Air 06/07/24 19:30 Room Air 06/07/24 19:25 06/07/24 18:57 Room Air Laboratory Results Laboratory Results WBC 12.17 K/ul (4.8-10.8) H 06/07/24 19:10 RBC 4.61 M/uL (4.20-5.40) 06/07/24 19:10 Hgb 12.6 g/dl (12.0-16.0) 06/07/24 19:10 Hct 37.0 % (37.0-47.0) 06/07/24 19:10 MCV 80.3 fL (80.0-100.0) 06/07/24 19:10 MCH 27.3 pg (25.0-34.0) 06/07/24 19:10 MCHC 34.1 g/dL (32.0-36.0) 06/07/24 19:10 RDW Std Deviation 43.8 fL (36.4-46.3) 06/07/24 19:10 RDW Coeff of Karen 15.1 % (11.5-14.5) H 06/07/24 19:10 Plt Count 214 K/uL (130-400) 06/07/24 19:10 MPV 9.2 fL (9.4-12.4) L 06/07/24 19:10 PT 10.6 Seconds (9.0-12.0) 06/07/24 19:10 INR 1.0 (0.9-1.1) 06/07/24 19:10 APTT 23 Seconds (21-31) 06/07/24 19:10 PTT Ratio 0.9 06/07/24 19:10 Sodium 134 mmol/L (136-145) L 06/07/24 19:10 Potassium 3.6 mmol/L (3.5-5.1) 06/07/24 19:10 Chloride 100 mmol/L (98-107) 06/07/24 19:10 Carbon Dioxide 23 mmol/L (21-32) 06/07/24 19:10 Anion Gap 11 (3-11) 06/07/24 19:10 BUN 23 mg/dl (6-23) 06/07/24 19:10 Creatinine 0.82 mg/dl (0.6-1.2) 06/07/24 19:10 Est Cr Clr Drug Dosing Not Reportable 06/07/24 19:10 eGFR 76.43 06/07/24 19:10 BUN/Creatinine Ratio 28.0 (10-20) H 06/07/24 19:10 Glucose 151 mg/dl (70-99(Fasting)) H 06/07/24 19:10 POC Glucose 155 mg/dl (70-99) H 06/07/24 19:11 Calcium 9.5 mg/dl (8.6-10.3) 06/07/24 19:10 Magnesium 1.8 mg/dl (1.7-2.4) 06/07/24 19:10 Total Bilirubin 0.7 mg/dl (0.2-1.0) 06/07/24 19:10 AST 31 U/L (13-39) 06/07/24 19:10 ALT 21 U/L (7-52) 06/07/24 19:10 Alkaline Phosphatase 101 U/L (34-104) 06/07/24 19:10 Total Protein 7.2 gm/dl (6.0-8.3) 06/07/24 19:10 Albumin 4.6 gm/dl (3.4-5.0) 06/07/24 19:10 Globulin 2.6 gm/dl (2.5-4.0) 06/07/24 19:10 Albumin/Globulin Ratio 1.8 (0.9-2) 06/07/24 19:10 Urine Color Yellow 06/07/24 20:03 Urine Appearance Cloudy (Clear) A 06/07/24 20:03 Urine pH 5.5 (4.5-7.5) 06/07/24 20:03 Ur Specific [place] 1.020 (1.000-1.030) 06/07/24 20:03 Urine Protein 1+ (Negative) H 06/07/24 20:03 Urine Glucose (UA) Negative (Negative) 06/07/24 20:03 Urine Ketones 2+ (Negative) H 06/07/24 20:03 Urine Blood 1+ (Negative) H 06/07/24 20:03 Urine Nitrite Negative (Negative) 06/07/24 20: Urine Bilirubin Negative (Negative) 06/07/24 20:03 Urine Urobilinogen Negative (Negative) 06/07/24 20:03 Ur Leukocyte Esterase Negative (Negative) 06/07/24 20:03 Urine WBC (Auto) 0-5 /hpf (0-5) 06/07/24 20:03 Urine RBC (Auto) 0-2 /hpf (0-2) 06/07/24 20:03 U Hyaline Cast (Auto) 0-2 /lpf (0-2) 06/07/24 20:03 U Epithel Cells (Auto) 0-2 /hpf (0-2) 06/07/24 20:03 Urine Bacteria (Auto) None Seen (None Seen) 06/07/24 20:03 Adenovirus (PCR) Not Detected (NotDetected) 06/07/24 20:02 B. pertussis DNA (PCR) Not Detected (NotDetected) 06/07/24 20:02 B.parapertussis DNA PCR Not Detected (NotDetected) 06/07/24 20:02 C. pneumoniae DNA (PCR) Not Detected (NotDetected) 06/07/24 20:02 Coronavirus OC43 (PCR) Not Detected (NotDetected) 06/07/24 20:02 Coronavirus HKU1 (PCR) Not Detected (NotDetected) 06/07/24 20:02 Coronavirus 229E (PCR) Not Detected (NotDetected) 06/07/24 20:02 SARS-CoV-2 (PCR) Not Detected (NotDetected) 06/07/24 20:02 Coronavirus NL63 (PCR) Not Detected (NotDetected) 06/07/24 20:02 Human Metapneumovir PCR Not Detected (NotDetected) 06/07/24 20:02 Influenza Type A (PCR) Not Detected (NotDetected) 06/07/24 20:02 Influenza Type B (PCR) Not Detected (NotDetected) 06/07/24 20:02 M. pneumoniae (PCR) Not Detected (NotDetected) 06/07/24 20:02 Parainfluenza 1 (PCR) Not Detected (NotDetected) 06/07/24 20:02 Parainfluenza 2 (PCR) Not Detected (NotDetected) 06/07/24 20:02 Parainfluenza 3 (PCR) Not Detected (NotDetected) 06/07/24 20:02 Parainfluenza 4 (PCR) Not Detected (NotDetected) 06/07/24 20:02 RSV (PCR) Not Detected (NotDetected) 06/07/24 20:02 Entero/Rhino (PCR) Not Detected (NotDetected) 06/07/24 20:02 Impressions Chest X-Ray 06/07/24 19:01 EXAM: XR chest 1V portable CLINICAL HISTORY: Stroke alert TECHNIQUE: An X-ray image of the chest is obtained in AP projection. COMPARISON: 05/08/2023 CR FINDINGS: Pulmonary Parenchyma: Prominent bronchovascular markings in both lungs. No evidence of consolidation, collapse, or focal opacities. No pulmonary nodules are identified. No evidence of pleural effusion or pleural thickening. Heart and Mediastinum: Heart size is borderline enlarged. No mediastinal widening or masses. No hilar or mediastinal lymphadenopathy. Bony Thorax: The bony thorax appears intact without fractures or deformities. Soft Tissues: Soft tissues overlying the chest wall are unremarkable. IMPRESSION: 1. Prominent bronchovascular markings in both lungs. This is non-specific or may be due to congestion. Stable. Needs clinical correlation 2. Borderline cardiomegaly. New likely due to the AP view. Electronically signed by Sammy Dodd 06-07-2024 9:[address] 06/07/24 19:01 EXAM: CT Head Without Intravenous Contrast INDICATION: Unspecified neurologic deficit. TECHNIQUE: Axial computed tomography images of the head/brain without intravenous contrast. Sagittal and/or coronal reformats are provided. Sagittal and coronal reformatted images were created and reviewed. This CT exam was performed using one or more of the following dose reduction techniques: automated exposure control, adjustment of the mA and/or kV according to patient size, and/or use of iterative reconstruction technique. COMPARISON: No relevant prior studies available. FINDINGS: Limitations: None. Brain and extra-axial spaces: There is age appropriate cortical atrophy and chronic ischemic periventricular white matter hypodensity. No acute infarct, hemorrhage or mass noted. Bones/joints: No acute changes. Soft tissues: No significant abnormality noted. Vasculature: No acute abnormality noted. Sinuses: No layering fluid in the visualized portions of the paranasal sinuses. Mastoid air cells: No mastoid effusion. Orbits: No significant abnormality noted. IMPRESSION: Cerebral atrophy. No acute changes. ACT 112: Negative or not required by law. Electronically signed by Brittany Neal 06-07-2024 7:56 PM Diagnostic Findings EKG as per my interpretation :Rate 105, sinus tachycardia, normal axis, no ischemia
--- NOTE | 2024-06-07 23:49 | CT Scan Report ---
Exam(s): CT ABDOMEN + PELVIS With Contrast IV Amt: 93 cc opti 320 EXAM: CT Abdomen and Pelvis With Intravenous Contrast CLINICAL HISTORY: Reason for exam: right abd pain. TECHNIQUE: Axial computed tomography images of the abdomen and pelvis with intravenous contrast. CTDI is 23.97 mGy and DLP is 1121.62 mGy-cm. Automated exposure control was utilized for the study. A dose lowering technique was utilized adhering to the principles of ALARA. CONTRAST: Patient received 93 cc opti 320 of IV contrast COMPARISON: No relevant prior studies available. FINDINGS: Lung bases: No consolidation. ABDOMEN: Liver: The liver is enlarged.. Gallbladder and bile ducts: Patient is status post cholecystectomy. There is some mild biliary ductal dilatation. Pancreas: No mass. No ductal dilation. Spleen: No splenomegaly. Adrenals: There is a 2.1 cm nodule in the right adrenal gland. There is a 1.3 cm nodule in the left adrenal gland Kidneys and ureters: . No hydronephrosis. There are rounded lucencies within the kidneys. Stomach and bowel: The stomach is decompressed. There is air and stool noted in the colon. There are some mildly distended air-filled loops of small bowel. The overall bowel gas pattern may represent an ileus.. PELVIS: Appendix: The appendix is not visualized. Bladder: No calculi are noted within the bladder.. Reproductive: Unremarkable as visualized. ABDOMEN and PELVIS: Intraperitoneal space: No free air. No significant fluid collection. Bones/joints: There are degenerative and postoperative changes involving the spine.. Soft tissues: There are postoperative changes involving the right inguinal region.. Vasculature: There are atherosclerotic changes. No abdominal aortic aneurysm. Lymph nodes: No enlarged lymph nodes. IMPRESSION: The patient is status post cholecystectomy. There is some mild biliary ductal dilatation. There are possible renal cysts. There are bilateral adrenal gland nodules which may represent adenomas. Hepatomegaly See discussion above Electronically signed by: Alexei Mauricio MD 06/07/24 23:47 PM
[2024-06-08] MEDS ORDERED: PROMETHAZINE 6.25 MG/50.25 ML BAG IV PRN
[2024-06-08] MEDS ORDERED: ACETAMINOPHEN 325 MG TAB PO PRN
[2024-06-08] MEDS: SODIUM CHLORIDE 0.9% 1,000 ML IV ONE (00:33)
[2024-06-08] MEDS ORDERED: CARBOHYDRATES FOR HYPOGLYCEMIA PO PRN (00:39)
[2024-06-08] MEDS ORDERED: DEXTROSE 50% 50 ML SYRINGE IV PRN (00:39)
[2024-06-08] MEDS ORDERED: GLUCOSE 10 TAB/TUBE PO PRN (00:39)
[2024-06-08] MEDS ORDERED: GLUCAGON FOR INJ 1 MG VIAL SQ PRN (00:39)
[2024-06-08] MEDS ORDERED: GLUCOSE 40% GEL 15 GM TUBE PO PRN (00:39)
[2024-06-08 00:58] LABS: Appearance CSF Clear; CSF Xanthrochromic No xanthochromia; Color CSF Colorless
[2024-06-08 00:59] LABS: CSF Count Tube # 3; Red Blood Cell CSF Manual 1.1 (0-); White Blood Cell CSF Manual 2.2 (0-5)
[2024-06-08 01:19] LABS: Total Protein CSF 34.1 mg/dl (15-45)
[2024-06-08] MEDS: Patient's HEIGHT &/or WEIGHT Needed STA (02:08)
[2024-06-08] MEDS: INSULIN ASPART PER UNIT CHARGE SC SCH (02:23)
[2024-06-08 03:13] LABS: Amphetamines+Metham, Urine Neg (Neg); Barbiturates, Urine Neg (Neg); Benzodiazepine, Urine Neg (Neg); Cocaine, Urine Neg (Neg); Fentanyl, Urine Neg (Neg); MDMA (Ecstacy), Urine Neg (Neg); Marijuana, Urine Neg (Neg); Methadone, Urine Neg (Neg); Opiate, Urine Neg (Neg); Phencyclidine, Urine Neg (Neg)
[2024-06-08 04:14] LABS: Basophils # (auto) 0.01 K/uL (0.00-0.20); Basophils % (auto) 0.1 %; Eosinophils # (auto) 0.01 K/uL (0.00-0.50); Eosinophils % (auto) 0.1 %; Hematocrit (blood only) 34.2 % (37.0-47.0); Hemoglobin 11.5 g/dl (12.0-16.0); Immature Granulocytes # (auto) 0.02 K/uL (0.01-0.20); Immature Granulocytes % (auto) 0.2 %; Lymphocytes % (auto) 18.5 %; Mean Corpuscular Hemoglobin 27.4 pg (25.0-34.0); Mean Corpuscular Hgb Conc 33.6 g/dL (32.0-36.0); Mean Corpuscular Volume 81.6 fL (80.0-100.0); Mean Platelet Volume 9.2 fL (9.4-12.4); Monocytes # (auto) 0.69 K/uL (0.11-0.59); Monocytes % (auto) 7.1 %; Platelet Count 188 K/uL (130-400); RDW Coefficient of Variation 14.9 % (11.5-14.5); RDW Standard Deviation 44.5 fL (36.4-46.3); Red Blood Count 4.19 M/uL (4.20-5.40); White Blood Count 9.73 K/ul (4.8-10.8)
[2024-06-08 04:29] LABS: BUN Creatinine Ratio 25.6 (10-20); Calcium 8.7 mg/dl (8.6-10.3); Creatinine Clr Calc Pharmacy 67.6 ml/min; Potassium 3.7 mmol/L (3.5-5.1)
[2024-06-08 08:54] LABS: Base Excess VBG 0.8 mEq/L; HCO3 VBG 25 mmol/L; Oxygen Saturation VBG 63.9 %; PCO2 VBG 39 mmHg (38-50); PO2 VBG 35 mmHg; pH VBG 7.42 (7.36-7.41)
[2024-06-08] MEDS ORDERED: ENOXAPARIN INJ 40 MG/0.4 ML SYR SQ SCH (09:00)
[2024-06-08] MEDS: MULTIVITAMIN TAB PO SCH (09:01)
[2024-06-08] MEDS: lisinopril 5 MG TAB PO SCH (09:01)
--- OUTSIDE RECORDS SUMMARY | 2024-06-08 09:15 | External Medical Summary | Summary of Care ---
Author Name Unknown Organization [facility] Address [address] [place] [address] Phone [phone] Care Team Providers Care City Route Driver Name Role Phone Unavailable Primary Care Provider Unavailabl e Reason for Visit * Reason Comments eRx-Medication Refill Encounter Details Date Type Department Care Team (Late st Contact Info) Description 03/02/2024 Refill [facility] [address] [place] [phone] AugustThomas MD [address] [place] [address] Hypertension goal BP (blood pressure) < 140/90 Allergies Active Allergy Reactions Criticality Noted Date Comments Sulfamethoxazole-Trimethopr im 01/22/2017 HIVES AND LIP SWELLING documented as of this encounter (statuses as of 03/03/2024) Medications Medication Sig Dispensed Refills Start Date End Date Status Multiple Vitamin (MULTI VITAMIN DAILY) TABS Take 1 Tab by mouth daily. Active metFORMIN (GLUCOPHAGE) 500 MG Tablet Take 1 Tablet by mouth in the morning and 1 Tablet before bedtime. 12/17/2019 Active Atorvastatin Calcium 20 MG Oral Tablet (Lipitor) Take 1 Tablet by mouth in the morning. 05/09/2020 Active Biotin 29031 MCG Oral Tablet Take by mouth. Active Lisinopril-hydroC HLOROthiazide 20-25 MG Oral TabletIndications :Hypertension goal BP (blood pressure) < 140/90 Take 1 Tablet by mouth in the morning. 30 Tablet 02/04/2024 03/03/2024 Discontinued (Refill) documented as of this encounter (statuses as of 03/03/2024) Active Problems Problem Noted Date Diagnosed Date Sepsis 05/17/2017 Fever 05/11/2017 Diarrhea 05/11/2017 Hypotension 05/11/2017 Tachycardia 05/07/2017 SOB (shortness of breath) 05/07/2017 Thrush 05/07/2017 Febrile neutropenia 04/20/2017 Moderate malnutrition 04/19/2017 History of Hodgkin's lymphoma 04/09/2017 Lymphoma 04/09/2017 Encounter for antineoplastic chemotherapy 2016 HTN, goal below 140/90 07/01/2014 GERD (gastroesophageal reflux disease) 5 documented as of this encounter (statuses as of 03/03/2024) Immunizations Name Administration Dates Next Due Seasonal Influenza, Quadrivalent Hd (Fluzone Hd) 02/10/2021 documented as of this encounter Social History Tobacco Use Types Packs/Day Years Used Date Smoking Tobacco: Former Cigarettes Q uit: 01/31/2014 Smokeless Tobacco: Never Alcohol Use Standard Drinks/Week Comments No 0 (1 standard drink = 0.6 oz pur e alcohol) Hunger Vital Sign Answer Date Recorded Within the past 12 months, y ou worried that your food would run out before you got the money to buy more. Never true 02/18/20 24 Within the past 12 months, t he food you bought just didn't last and you didn't have money to get more. Never true 02/18/2024 Childcare Answer Date Recorded Do you feel overwhelmed with taking care of a child, family member or friend? No 02/18/2024 Does your family need help f inding childcare? (Household - for ages 0-17 years) Not on file 02/18/2024 Clothing Answer Date Recorded Have you been unable to get clothing when it was really needed? No 02/18/2024 Is your family able to get c lothes or diapers when needed? (Household - for ages 0-17 years) Not on file 02/18/2024 Personal Safety Answer Date Recorded Do you feel unsafe or have concerns for your saf ety? No 02/18/2024 Do you have concerns for you r family's safety? (Household - for ages 0-17 years) Not on file 02/18/2024 Utilities Answer Date Recorded Do you have trouble paying y our heating, water, or electric bill? No 02/18/2024 Is your family able to pay t he heat, water, or electric bill? (Household - for ages 0-17 years) Not on file 02/18/2024 Does your family have access to good internet? (Household - for ages 0-17 years) Not on file 02/18/2024 Employment Status Answer Date Recorded Are you unemployed or without regular income? No 02/18/2024 Does the household have a re gular source of income? (Household - for ages 0-17 years) Not on file 02/18/2024 Social Connections Answer Date Recorded How often do you feel lonely or isolated from those around you? Sometimes 02/18/2024 Financial Resource Strain Answer Date R ecorded Do you have any trouble payi ng for your medications, or do you think you might in the future? No 02/18/2024 Does your family have troubl e paying for medicine? (Household - for ages 0-17 years) Not on file 02/18/2024 Transportation Needs Answer Date Record ed Do you have trouble getting a ride to medical visits or work? (Adult - for ages 18 years and over) Not on file 02/18/2024 Does your family have a hard time getting a ride to doctors visits? (Household - for ages 0-17 years) Not on file 02/18/2024 Has lack of transportation k ept you from medical appointments, meetings, work, or from getting things needed for daily living? Check all that apply. No 02/18/2024 Do you (or your family) have trouble finding or paying for a ride (transportation)? (Household - for ages 0-17 years) Not on file 02/18/2024 Housing Stability Answer Date Recorded Do you currently live in a s helter or have no steady place to sleep at night? No 02/18/2024 Do you think you are at risk of becoming homeless? (Adult - for ages 18 years and over) Not on file 02/18/2024 Does your family worry about paying for your home or becoming homeless? (Household - for ages 0-17 years) Not on file 1 Are you homeless or worried that you might be in the future? No 02/18/2024 Are you (or your family) cam[place] eless or worried that you might be in the future? (Household - for ages 0-17 years) Not on file Food Insecurity Answer Date Recorded Do you need food for this week? No 02/18/2024 Are you able to get enough f ood for your family? (Household - for ages 0-17 years) Not on file 02/18/2024 Does your family need food t his week? (Household - for ages 0-17 years) Not on file 02/18/2024 Do you always have enough fo od for your family? (Household - for ages 0-17 years) Not on file 02/18/2024 Sex and Gender Information Value Date Recorded Sex Assigned at Female 06/25/2022 7:26 PM EST Gender Identity Female 06/25/2022 7:26 PM EST Sexual Orientation Straight 06/25/2022 7: 26 PM EST Job Start Date Occupation Industry Not on file Not on file Not on file documented as of this encounter Functional Status Functional Status Response Date of Assess ment Are you deaf or do you have serious difficulty h earing? No 05/10/2017 Are you blind or do you have serious difficulty seeing, even when wearing glasses? No 05/10/2017 Do you have serious difficul ty walking or climbing stairs? (5 years old or older) No 05/10/2017 Do you have difficulty dress ing or bathing? (5 years old or older) No 05/10/2017 Because of a physical, menta l, or emotional condition, do you have difficulty doing errands alone such as visiting a doctor s office or shopping? (15 years old or older) No 05/10/19 18 Cognitive Status Response Date of Assessm ent Because of a physical, menta l, or emotional condition, do you have serious difficulty concentrating, remembering, or making decisions? (5 years old or older) No 05/10/2017 documented as of this encounter Plan of Treatment Upcoming Encounters Date Type Department Care Team (Late st Contact Info) Description 10/04/2024 9:00 AM EDT Laboratory Laboratory, [address] [place] [address] Sophie Le[address] [place] [address] 10/11/2024 12:30 PM EDT Office Visit Hematology/Oncology State Felicia Arzate [address] [facility] [place] [address] Marielos Morris MD [address] [facility] [place] [address] Scheduled Procedures Name Priority Associated Diagnoses Date/Ti me COLONOSCOPY FLEXIBLE WITH EN DOSCOPIC ULTRASOUND EXAM Recall Colon cancer screening Health Maintenance Due Date Last Done Comments DXA Scan 1953 Hepatitis C Screening 1971 DTap/Tdap Vaccines (1 - Tdap) 1972 Zoster Vaccines (1 of 2) 1972 Cologuard 1998 Fecal Occult Blood Test 1998 Sigmoidoscopy 1998 COVID-19 Vaccine (3 - Moderna risk series) 07/21/2020 06/23/2020, 05/26/2020 GFR 09/30/2024 10/01/2023, 04/28, 11/13/2022, Additional history exists Mammogram 01/08/2025 01/09/2024, 12/27, 01/01/2023, Additional history exists Depression Screening 03/03/2025 03/03/2024 Albumin/Creatinine Ratio 05/07/2026 024, 05/17/2022, 05/04/2021, Additional history exists Colonoscopy 02/13/2027 02/13/2017, 02/13/2017 Colorectal Cancer Screening 02/13/2027 Lipid Panel 05/07/2028 05/07/2023, 10/26, 05/17/2022, Additional history exists Pneumococcal Vaccine: 65+ Years Completed 10/27/2019, 10/28/2018 Influenza Vaccine (FLU shot) Completed 09/2023, 04/25/2023, 02/20/2022, Additional history exists HPV (Gardasil) Vaccine Aged Out No lo nger eligible based on patient's age to complete this topic Hepatitis B Vaccine Aged Out No longe r eligible based on patient's age to complete this topic MENINGOCOCCAL (MENACTRA/MENVEO) Aged Out No longer eligible based on patient's age to complete this topic documented as of this encounter Medical Devices Implanted Type Area Karate Black Belt Device Identifier Shelf Expiration Date Model / Serial / Lot Chayo Solitario Islo 8fr [id number] - [id number] Implanted:Qty: 1 on 04/01/2017 by Adrianne Stewart MD at [facility] Right: Chest CR BARD : PERIPHERAL VASCULAR 12/26/2018 [id number] / / [id number] documented as of this encounter Visit Diagnoses Diagnosis Hypertension goal BP (blood pressure) < 140/90 Unspecified essential hypertension documented in this encounter Advance Directives * Full Code (Latest Code Status on File) Date Activated Date Inactivated Comments 05/10/2017 4:13 PM 05/17/2017 3:53 PM This order r eflects the patients wishes and were consensually agreed upon. Question Answer Comments Discussion of Advance Directives occurred with: Patient/Family Does the patient have a Living Will? Yes, not cu rrently available Does the patient have Health Care Power of Health Care Coordinator? Yes, not currently available * Full Code Date Activated Date Inactivated Comments 05/07/2017 6:12 PM 05/08/2017 2:54 PM This order r eflects the patients wishes and were consensually agreed upon. Question Answer Comments Discussion of Advance Directives occurred with: Patient Does the patient have a Living Will? No Does the patient have Health Care Power of Attor barbara? No * Full Code Date Activated Date Inactivated Comments 04/17/2017 8:22 PM 04/20/2017 10:12 PM This orde r reflects the patients wishes and were consensually agreed upon. Question Answer Comments Discussion of Advance Directives occurred with: Patient Does the patient have a Living Will? No Does the patient have Health Care Power of Attor barbara? No * Full Code Date Activated Date Inactivated Comments 04/01/2017 6:29 AM 04/01/2017 2:14 PM Question Answer Comments Discussion of Advance Directives occurred with: Not Discussed Does the patient have a Living Will? No Does the patient have Health Care Power of Attor barbara? No * Full Code Date Activated Date Inactivated Comments 03/04/2017 12:18 PM 03/04/2017 8:20 PM Question Answer Comments Discussion of Advance Directives occurred with: Not Discussed Does the patient have a Living Will? No Does the patient have Health Care Power of Attor barbara? No
--- OUTSIDE RECORDS SUMMARY | 2024-06-08 09:15 | External Medical Summary | Summary of Care ---
Author Name Unknown Organization [facility] Address [address] [place] [address] Phone [phone] Care Team Providers Care Shellfish Checker Name Role Phone Unavailable Primary Care Provider Unavailabl e Reason for Visit * Reason Onset Date Comments Medication Question 02/03/2024 Encounter Details Date Type Department Care Team (Late st Contact Info) Description 02/03/2024 Telephone [facility] [address] [place] [address] August, Benedicto Knapp MD [address], [place] [id number] Medication Question Allergies Active Allergy Reactions Criticality Noted Date Comments Sulfamethoxazole-Trimethopr im 01/22/2017 HIVES AND LIP SWELLING documented as of this encounter (statuses as of 02/04/2024) Medications Medication Sig Dispensed Refills Start Date End Date Status Multiple Vitamin (MULTI VITAMIN DAILY) TABS Take 1 Tab by mouth daily. Active metFORMIN (GLUCOPHAGE) 500 MG Tablet Take 1 Tablet by mouth in the morning and 1 Tablet before bedtime. 12/17/2019 Active Atorvastatin Calcium 20 MG Oral Tablet (Lipitor) Take 1 Tablet by mouth in the morning. 05/09/2020 Active Biotin 76433 MCG Oral Tablet Take by mouth. Active Turmeric 500 MG Oral Capsule Take 1 Capsule by mouth in the morning. Active Lisinopril-hydroC HLOROthiazide 20-25 MG Oral TabletIndications :Hypertension goal BP (blood pressure) < 140/90 Take 1 Tablet by mouth in the morning. 30 Tablet 02/04/2024 Active LISINOPRIL-HYDROC HLOROTHIAZIDE 20-25 MG PO TABS Take 1 tablet by mouth daily 04/19/2014 02/04/2024 Discontinued (Refill) documented as of this encounter (statuses as of 02/04/2024) Active Problems Problem Noted Date Diagnosed Date Sepsis 05/17/2017 Fever 05/11/2017 Diarrhea 05/11/2017 Hypotension 05/11/2017 Tachycardia 05/07/2017 SOB (shortness of breath) 05/07/2017 Thrush 05/07/2017 Febrile neutropenia 04/20/2017 Moderate malnutrition 04/19/2017 History of Hodgkin's lymphoma 04/09/2017 Lymphoma 04/09/2017 Encounter for antineoplastic chemotherapy 2016 HTN, goal below 140/90 07/01/2014 GERD (gastroesophageal reflux disease) 5 documented as of this encounter (statuses as of 02/04/2024) Immunizations Name Administration Dates Next Due Seasonal Influenza, Quadrivalent Hd (Fluzone Hd) 02/10/2021 documented as of this encounter Social History Tobacco Use Types Packs/Day Years Used Date Smoking Tobacco: Former Cigarettes Q uit: 01/31/2014 Smokeless Tobacco: Never Alcohol Use Standard Drinks/Week Comments No 0 (1 standard drink = 0.6 oz pur e alcohol) Utilities Answer Date Recorded Do you have trouble paying y our heating, water, or electric bill? (Adult - for ages 18 years and over) Not on file 10/14/2023 Is your family able to pay t he heat, water, or electric bill? (Household - for ages 0-17 years) Not on file 10/14/2023 Does your family have access to good internet? (Household - for ages 0-17 years) Not on file 10/14/2023 Social Connections Answer Date Recorded How often do you feel lonely or isolated from those around you? (Adult - for ages 18 years and over) Not on file 10/14/2023 Sex and Gender Information Value Date Recorded [...] No 05/10/2017 documented as of this encounter Miscellaneous Notes * Telephone Encounter - Elmira Ibanez LPN - 02/04/2024 2:19 PM EDT Called and spoke with patient and she is aware of information from Dr. Cisneros. * Addendum Note - Benedicto Cisneros MD - 02/04/2024 1:50 PM EDTAddended by: BENEDICTO CISNEROS on: 02/04/2024 01:50 PM Modules accepted: Orders * Telephone Encounter - Benedicto Cisneros MD - 02/04/2024 1:49 PM EDT Rx sent for 30 day supply. Will follow up when she establishes care. Benedicto Cisneros MD * Addendum Note - Elmira Ibanez LPN - 02/04/2024 1:43 PM EDTAddended by: ELMIRA IBANEZ on: 02/04/2024 01:43 PM Modules accepted: Orders * Telephone Encounter - Elmira Ibanez LPN - 02/04/2024 1:42 PM EDT Patient has not been seen in our office yet but is scheduled to be seen 03/03/[address] Cisneros * Telephone Encounter - Elmira Ibanez LPN - 02/04/2024 1:41 PM EDT Did you pend patient's preferred pharmacy and medication before forwarding?yes Pharmacy: [id number] Pending Prescriptions: Disp Refills Lisinopril-hydroCHLOROthiazide 20-25 MG O* Sig: Take 1 Tablet by mouth in the morning. Last Visit: Visit date not found (in office), Visit date not found (telemedicine) Next Visit: 03/03/2024 If no future appointments scheduled, and last appointment is greater than a year ago, please schedule patient for a follow-up appointment Is this request for a controlled substance?No Urine Drug Screen:No results found for this or any previous visit. Patient Phone Numbers Labs: Lab Results Component Value Date/Time CREAT 0.8 10/01/2023 09:04 AM CREAT 0.9 05/07/2023 09:54 AM CREAT 0.8 10/06/2019 10:19 AM POTASSIUM 4.7 10/01/2023 09:04 AM POTASSIUM 4.8 05/07/2023 09:54 AM POTASSIUM 4.7 10/06/2019 10:19 AM TSH 0.87 10/08/2021 08:32 AM TSH 1.09 05/04/2021 09:59 AM TSH <0.01 (L) 04/07/2019 08:10 AM LDL 79 05/07/2023 09:54 AM ALT 25 10/01/2023 09:04 AM ALT 22 05/07/2023 09:54 AM ALT 24 04/07/2019 08:10 AM HGBA1C 5.60 05/07/2023 09:54 AM * Telephone Encounter - Karina Rojas CPhT - 02/04/2024 1:03 PM EDT Pt stating that the previous informed pt that they cannot do a refill for her because she is not longer a pt there. Pt needs a refill on her Lisinopril HCTZ 20-25mg. Please advise and pt doesn't haveappt 03/03/24. Thank you, Karina Rojas CPhT Customer Service Receptionist II [facility] 02/04/2024,1:05 PM * Telephone Encounter - Patti Hair PHARM Tech - 02/03/2024 1:33 PM EDT Pt calling in to see if could get refill on a med. Pt says she has not yet seen the office or had her appt yet. Advised she would need to request refill from previous office until establishes with appt. Pt aware. Thank You, Patti Hair CPhT Commercial Light Fixture Assembler II [facility] 02/03/2024, 1:34 PM documented in this encounter Plan of Treatment Upcoming Encounters Date Type Department Care Team (Late st Contact Info) Description 03/03/2024 11:20 AM EST Office Visit [facility] [place] [address] [facility] [place] [phone] August, Bneedicto Knapp MD [address] [facility] [place] [address] 10/04/2024 9:00 AM EDT Laboratory Laboratory, [place] [address] [phone] [place], Laboratory [address] [address] 10/11/2024 12:30 PM EDT Office Visit Hematology/Oncology State Felicia Arzate [address] [facility] [place] [phone] Marielos Morris MD [address] [facility] [place] [address] Scheduled Procedures Name Priority Associated Diagnoses Date/Ti me COLONOSCOPY FLEXIBLE WITH EN DOSCOPIC ULTRASOUND EXAM Recall Colon cancer screening Health Maintenance Due Date Last Done Comments DXA Scan 1953 Depression Screening 1965 Hepatitis C Screening 1971 DTap/Tdap Vaccines (1 - Tdap) 1972 Zoster Vaccines (1 of 2) 1972 Cologuard 1998 Fecal Occult Blood Test 1998 Sigmoidoscopy 1998 COVID-19 Vaccine (3 - Moderna risk series) 07/21/2020 06/23/2020, 05/26/2020 Influenza Vaccine (FLU shot) (#1) 2023 04/25/2023, 02/20/2022, 02/10/2021, Additional history exists GFR 09/30/2024 10/01/2023, 04/28, 11/13/2022, Additional history exists Mammogram 01/08/2025 01/09/2024, 09/2022, 01/01/2023, Additional history exists Albumin/Creatinine Ratio 05/07/20262 024, 05/17/2022, 05/04/2021, Additional history exists Colonoscopy 02/13/2027 02/13/2017, 02/13/2017 Colorectal Cancer Screening 02/13/2027 Lipid Panel 05/07/2028 05/07/2023, 10/26, 05/17/2022, Additional history exists Pneumococcal Vaccine: 65+ Years Completed 10/27/2019, 10/28/2018 HPV (Gardasil) Vaccine Aged Out No lo nger eligible based on patient's age to complete this topic Hepatitis B Vaccine Aged Out No longe r eligible based on patient's age to complete this topic MENINGOCOCCAL (MENACTRA/MENVEO) Aged Out No longer eligible based on patient's age to complete this topic documented as of this encounter Medical Devices Implanted Type Area Finished Stock Inspector Device Identifier Shelf Expiration Date Model / Serial / Lot [place] Pwjennifer Isp 8fr [id number] - [id number] Implanted:Qty: 1 on 04/01/2017 by Adrianne Stewart MD at [facility] Right: Chest CR BARD : PERIPHERAL VASCULAR 12/26/2018 [id number] / / [id number] documented as of this encounter Visit Diagnoses Diagnosis Hypertension goal BP (blood pressure) < 140/90- Primary Unspecified essential hypertension documented in this encounter [...] the patient have Health Care Power of Soil And Plant Scientist? Yes, not currently available * Full Code [...]
--- OUTSIDE RECORDS SUMMARY | 2024-06-08 09:15 | External Medical Summary | Summary of Care ---
Author Name Unknown Organization [facility] Address [address] [place] [address] Phone [phone] Care Team Providers Care Bleach Maker Name Role Phone Thomas Chadwick MD Primary Care Provider [phone] Reason for Visit * Reason Comments eRx-Medication Refill Encounter Details Date Type Department Care Team (Late st Contact Info) Description 04/01/2024 Refill [facility] [address] [place] [phone] Thomas Chadwick MD [address] [place] [address] Tobacco use Allergies Active Allergy Reactions Criticality Noted Date Comments Sulfamethoxazole-Trimethopr im 01/22/2017 HIVES AND LIP SWELLING documented as of this encounter (statuses as of 04/02/2024) Medications Multiple Vitamin (MULTI VITAMIN DAILY) TABS Take 1 Tab by mouth daily. Active metFORMIN (GLUCOPHAGE) 500 MG Tablet Take 1 Tablet by mouth in the morning and 1 Tablet before bedtime. 0 Active Atorvastatin Calcium 20 MG Oral Tablet (Lipitor) Take 1 Tablet by mouth in the morning. 1 Active Biotin 89124 MCG Oral Tablet Take by mouth. Active Lisinopril-hydr oCHLOROthiazide 20-25 MG Oral TabletIndicatio ns:Hypertension goal BP (blood pressure) < 140/90 Take 1 Tablet by mouth in the morning. 90 Tablet 3 4 Active Varenicline Tartrate (Starter) 0.5 MG X 11 & 1 MG X 42 Tablet Therapy PackIndications :Tobacco use Ramp per directions on the starter pack. 1 Each 4 Active Varenicline Tartrate(Contin ue) 1 MG Oral TabletIndicatio ns:Tobacco use Take 1 mg by mouth in the morning and 1 mg before bedtime. 60 Tablet 1 4 Active documented as of this encounter (statuses as of 04/02/2024) Active Problems Problem Noted Date Diagnosed Date History of Hodgkin's lymphoma 04/09/2017 HTN, goal below 140/90 07/01/2014 GERD (gastroesophageal reflux disease) 5 documented as of this encounter (statuses as of 04/02/2024) Resolved Problems Problem Noted Date Diagnosed Date Resolved Date Sepsis 05/17/2017 03/03/2024 Febrile neutropenia 04/20/2017 03/03/20 Moderate malnutrition 04/19/20172023 Encounter for antineoplastic chemotherapy 03/31/2017 03/03/2024 documented as of this encounter (statuses as of 04/02/2024) Immunizations Name Administration Dates Next Due Seasonal Influenza, High Dos e, Trivalent, PF, IM (Fluzone HD) 03/03/2024 Seasonal Influenza, Quadrivalent Hd (Fluzone Hd) 02/10/2021 Zoster Vaccine Recombinant (Shingrix) 01/04/2022 documented as of this encounter Social History Tobacco Use Types Packs/Day Years Used Date Smoking Tobacco: Every Day Cigarettes 0.5 0.9 Started: 2023; Last attempted to quit: 01/31/2014 Smokeless Tobacco: Never Alcohol Use Standard Drinks/Week Comments No 0 (1 standard drink = 0.6 oz pur e alcohol) PHQ-2 Answer Date Recorded PHQ Adult Total Score 0 03/03/2024 Hunger Vital Sign Answer Date Recorded Within [...] 02/18/2024 Does the household have a re lar source of income? (Household - for ages [...] ages 0-17 years) Not on file 02/18/2024 Comments No Sex and Gender Information Value Date Recorded Sex Assigned at Female 06/25/2022 7:26 PM EST Legal Sex Female 4:57 AM EST Gender Identity Female 06/25/2022 7:26 PM EST Sexual Orientation Straight 06/25/2022 7: 26 PM EST documented as of this encounter Functional Status * Are you deaf or do you have serious difficulty hearing? Answer Date of Assessment Author No 05/10/2017 5:40 PM EST Huey Perea RN * Are you blind or do you have serious difficulty seeing, even when wearing glasses? Answer Date of Assessment Author No 05/10/2017 5:40 PM Huye Contreras RN * Do you have serious difficulty walking or climbing stairs? (5 years old or older) Answer Date of Assessment Author No 05/10/2017 5:40 PM Huey Contreras RN * Do you have difficulty dressing or bathing? (5 years old or older) Answer Date of Assessment Author No 05/10/2017 5:40 PM Huey Contreras RN * Because of a physical, mental, or emotional condition, do you have difficulty doing errands alone such as visiting a doctors office or shopping? (15 years old or older) Answer Date of Assessment Author No 05/10/2017 5:40 PM Huey Contreras RN documented as of this encounter Mental Status * Because of a physical, mental, or emotional condition, do you have serious difficulty concentrating, remembering, or making decisions? (5 years old or older) Answer Entry Date Author No 05/10/2017 5:40 PM Huey Contreras RN documented in this encounter Miscellaneous Notes * Telephone Encounter - Alina Henry RPh - 04/02/2024 11:35 PM EST Refused Prescriptions: Disp Refills Varenicline Tartrate (Starter) 0.5 MG X 11* 0 Sig: Ramp per directions on the starter pack.Refused By: ALINA HENRY for Refusal: Course of treatment completeReason for Refusal Comment: 1 mg BID: rx sent already documented in this encounter Plan of Treatment Upcoming Encounters Date Type Department Care Team (Late st Contact Info) Description 08/31/2024 8:00 AM EDT Laboratory Laboratory, [place] [address] [phone] [place] [address] [address] 09/06/2024 11:20 AM EDT [facility] [place] [phone] Thomas Chadwick MD [address] [place] [address] 10/04/2024 9:00 AM EDT Laboratory Laboratory, [place]an Valentinemilylori Shanthi [address] [place] [phone] [facility] [address] [place] [address] [facility] [address] 10/11/2024 12:30 PM EDT Office Visit Hematology/Oncology [place] Toribio [place] [address] [facility] [place] [address] Marielos Morris MD [address] [facility] [place] [address] Scheduled Procedures Name Priority Associated Diagnoses Date/Ti me COLONOSCOPY FLEXIBLE WITH EN DOSCOPIC ULTRASOUND EXAM Recall Colon cancer screening Health Maintenance Due Date Last Done Comments DXA Scan 1953 Hepatitis C Screening 1971 DTap/Tdap Vaccines (1 - Tdap) 1972 Cologuard 1998 Fecal Occult Blood Test 1998 Sigmoidoscopy 1998 Adult Wellness Visit 2019 Zoster Vaccines (2 of 2) 03/01/2022 01/04/2022 COVID-19 Vaccine (3 - season) 2023 06/23/2020, 05/26/2020 GFR 09/30/2024 10/01/2023, 04/28, 11/13/2022, Additional history exists Mammogram 01/08/2025 01/09/2024, 12/27, 01/01/2023, Additional history exists Depression Screening 03/03/2025 03/03/2024 Albumin/Creatinine Ratio 05/07/20262 024, 05/17/2022, 05/04/2021, Additional [...] this encounter Medical Devices Implanted Type Area Pharmacy Technician Program Director Device Identifier Shelf Expiration Date Model / Serial / Lot Mediport Pwr Isp 8fr [id number] - [id number] Implanted:Qty: 1 on 04/01/2017 by Adrianne Stewart MD at OR [facility] Right: Chest CR BARD : PERIPHERAL VASCULAR 12/26/2018 [id number] / / [id number] documented as of this encounter Visit Diagnoses Diagnosis Tobacco use Tobacco use disorder documented in this encounter Advance Directives * [...] the patient have Health Care Power of Allopathic Doctor? Yes, not currently available * Full Code [...] Health Care Power of Attor barbara? No Care Teams Bleach Maker Relationship Specialty Start Date End Date August, Thomas Knapp MD [address] [place] [address] PCP - General Family Medicine 03/03/24 documented as of this encounter
--- OUTSIDE RECORDS SUMMARY | 2024-06-08 09:15 | External Medical Summary | Summary of Care ---
Author Name Unknown Organization [facility] Address [address] [place] [address] Phone [phone] Care Team Providers Care Screw Machine Repairer Name Role Phone AugustBenedicto MD Primary Care Provider [phone] Reason for Visit * Reason Onset Date Comments Medication Refill 04/05/2024 Encounter Details Date Type Department Care Team (Late st Contact Info) Description 04/05/2024 Refill [facility] [address] [place] [phone] AugustBenedicto MD [address] [facility] [address] [place], [place] [phone] Allergies Active Allergy Reactions Criticality Noted Date Comments Sulfamethoxazole-Trimethopr im 01/22/2017 HIVES AND LIP SWELLING documented as of this encounter (statuses as of 04/06/2024) Medications Multiple Vitamin (MULTI VITAMIN DAILY) TABS Take 1 Tab by mouth daily. Active Biotin 51235 MCG Oral Tablet Take by mouth. Activ e Lisinopril-hyd roCHLOROthiazi de 20-25 MG Oral TabletIndicati ons:Hypertensi on goal BP (blood pressure) < 140/90 Take 1 Tablet by mouth in the morning. 90 Tablet 3 4 Active Varenicline Tartrate (Starter) 0.5 MG X 11 & 1 MG X 42 Tablet Therapy PackIndication s:Tobacco use Ramp per directions on the starter pack. 1 Each 4 Active Varenicline Tartrate(Hector nue) 1 MG Oral TabletIndicati ons:Tobacco use Take 1 mg by mouth in the morning and 1 mg before bedtime. 60 Tablet 1 4 Active Atorvastatin Calcium 20 MG Oral Tablet (Lipitor) Take 1 Tablet by mouth in the morning. In the morning.. 90 Tablet 4 Active metFORMIN HCl 500 MG Oral Tablet (Glucophage) Take 1 Tablet by mouth in the morning and 1 Tablet before bedtime. 180 Tablet 4 Active metFORMIN (GLUCOPHAGE) 500 MG Tablet Take 1 Tablet by mouth in the morning and 1 Tablet before bedtime. 0 04/05/20 24 Discontinu ed(Refill) Atorvastatin Calcium 20 MG Oral Tablet (Lipitor) Take 1 Tablet by mouth in the morning. 1 04/05/20 24 Discontinu ed(Refill) documented as of this encounter (statuses as of 04/06/2024) Active Problems Problem Noted Date Diagnosed Date History of Hodgkin's lymphoma 04/09/2017 HTN, goal below 140/90 07/01/2014 GERD (gastroesophageal reflux disease) 5 documented as of this encounter (statuses as of 04/06/2024) Resolved Problems Problem Noted Date Diagnosed Date Resolved Date Sepsis 05/17/2017 03/03/2024 Febrile neutropenia 04/20/2017 03/03/20 24 Moderate malnutrition 04/19/20172023 Encounter for antineoplastic chemotherapy 03/31/2017 03/03/2024 documented as of this encounter (statuses as of 04/06/2024) Immunizations Name Administration Dates Next Due Seasonal [...] 05/10/2017 5:40 PM Huey Contreras RN * Are you blind or do you have serious difficulty seeing, even when wearing glasses? Answer Date of Assessment Author No 05/10/2017 5:40 PM Huey Contreras RN * Do you have serious [...] encounter Miscellaneous Notes * Telephone Encounter - Benedicto Cisneros MD - 04/06/2024 11:19 AM ESTSigned Prescriptions: Disp Refills Atorvastatin Calcium 20 MG Oral Tablet (Li*90 Tab*0 Sig: Take 1 Tablet by mouth in the morning. In the morning.. Authorizing Provider: BENEDICTO CISNEROS metFORMIN HCl 500 MG Oral Tablet (Glucopha*180 Ta*0 Sig: Take 1 Tablet by mouth in the morning and 1 Tablet before bedtime. Authorizing Provider: BENEDICTO CISNEROS -- * Telephone Encounter - Rachel Card [facility] - 04/06/2024 10:56 AM ESTPending Prescriptions: Disp Refills Atorvastatin Calcium 20 MG Oral Tablet (Li*90 Tab*0 Sig: Take 1 Tablet by mouth in the morning. In the morning.. metFORMIN HCl 500 MG Oral Tablet (Glucopha*180 Ta*0 Sig: Take 1 Tablet by mouth in the morning and 1 Tablet before bedtime. * Telephone Encounter - Rachel Card RPh - 04/06/2024 10:56 AM EST Pharmacists cannot authorize refills for meds listed as "historical" in chart. Please approve if appropriate. Thanks, Rachel Card PharmD Clinical Pharmacist [facility] ([facility]) [phone] 04/06/2024, 10:56 AM * Telephone Encounter - Jose Reyes PHARM Tech - 04/05/2024 8:28 AM EST Medication(s) is/are listed as "Historical". Pt confirmed the current dosage, directions, and qty that they are normally prescribed, as reflected in the pending order below. This is also indicated from encounter on 05/09/20, 12/17/19. Confirmed patient has been seen within the last year.. Please review and approve if appropriate. Pending Prescriptions: Disp Refills Atorvastatin Calcium 20 MG Oral Tablet (L*90 Tab*0 Sig: Take 1 Tablet by mouth in the morning. In the morning.. metFORMIN HCl 500 MG Oral Tablet (Glucoph*180 Ta*0 Sig: Take 1 Tablet by mouth in the morning and 1 Tablet before bedtime. Last Visit: 03/03/24 Next Visit: 09/06/2024 If no future appointments scheduled, and last appointment is greater than a year ago, please schedule patient for a follow-up appointment Last date the medication was ordered: Historical Patient Phone Numbers Labs: Lab Results Component [...] 08:10 AM HGBA1C 5.60 05/07/2023 09:54 AM documented in this encounter Plan of Treatment Upcoming Encounters Date Type Department Care Team (Late st Contact Info) Description 08/31/2024 8:00 AM EDT Laboratory Laboratory, [address] [phone] Sophie [place] Afshan [address]abe [place] [address] 09/06/2024 11:20 AM EDT Office Visit Family [facility], [place] [phone] AugustBenedicto MD [address] [address] 10/04/2024 9:00 AM EDT Laboratory Laboratory, [place]ibran Maki [address] [phone] [place], [place] [address] 10/11/2024 12:30 PM EDT Office Visit Hematology/Oncology State Felicia Arzate [address] [facility] [place] [address] Marielos Morris MD [address] [facility] [place] [address] Scheduled Procedures Name Priority Associated Diagnoses Date/Ti [...] this encounter Medical Devices Implanted Type Area Coffee Farmer Device Identifier Shelf Expiration Date Model / Serial / Lot Mediport Pwr Isp 8fr [id number] - [id number] Implanted:Qty: 1 on 04/01/2017 by Adrianne Stewart MD at OR [facility] Right: Chest CR BARD : PERIPHERAL VASCULAR 12/26/2018 [id number] / / [id number] documented as of this encounter Advance Directives * Full Code [...] the patient have Health Care Power of Brake Repairer Air? Yes, not currently available * Full Code [...] Power of Attor barbara? No Care Teams Screw Machine Repairer Relationship Specialty Start Date End Date August, Benedicto Knapp MD [address] [address] PCP - General Family Medicine 03/03/24 documented as of this encounter
--- OUTSIDE RECORDS SUMMARY | 2024-06-08 09:15 | External Medical Summary | Summary of Care ---
Author Name Unknown Organization [facility] [address] [facility] [address] Phone [phone] Care Team Providers Care Steel Erector Name Role Phone Thomas Chadwick MD Primary Care Provider [phone] Encounter Details Date Type Department Care Team (Late st Contact Info) Description 03/05/2024 Orders Only PATIENT PORTAL DO NOT DELETE THIS DEPT USED BY JAUN BRIZUELA [id number] Allergies Active Allergy Reactions Criticality Noted Date Comments Sulfamethoxazole-Trimethopr im 01/22/2017 HIVES AND LIP SWELLING documented as of this encounter (statuses as of 03/05/2024) Medications Multiple Vitamin (MULTI VITAMIN DAILY) TABS Take 1 Tab by mouth daily. Active metFORMIN (GLUCOPHAGE) 500 MG Tablet Take 1 Tablet by mouth in the morning and 1 Tablet before bedtime. 0 Active Atorvastatin Calcium 20 MG Oral Tablet (Lipitor) Take 1 Tablet by mouth in the morning. 1 Active Biotin 37836 MCG Oral Tablet Take by mouth. Active [...] as of this encounter (statuses as of 03/05/2024) Active Problems Problem Noted Date Diagnosed Date History of Hodgkin's lymphoma 04/09/2017 HTN, goal below 140/90 07/01/2014 GERD (gastroesophageal reflux disease) 5 documented as of this encounter (statuses as of 03/05/2024) Resolved Problems Problem Noted Date Diagnosed Date Resolved Date Sepsis 05/17/2017 03/03/2024 Febrile neutropenia 04/20/2017 03/03/20 Moderate malnutrition 04/19/20172023 Encounter for antineoplastic chemotherapy 03/31/2017 03/03/2024 documented as of this encounter (statuses as of 03/05/2024) Immunizations Name Administration Dates Next Due Seasonal [...] No 02/18/2024 Does the household have a [facility] medical cent[facility] source of income? (Household - for ages [...] Assessment Author No 05/10/2017 5:40 PM EST Shober, A mber E, RN * Because of a physical, mental, [...] Huey Contreras RN documented in this encounter Plan of Treatment Upcoming Encounters Date Type Department Care Team (Late st Contact Info) Description 08/31/2024 8:00 AM EDT [facility] [place] [facility] [address] [facility] [place] [address] G[facility] [address] [facility] [place] [address] 09/06/2024 11:20 AM EDT Office Visit [facility], [place] [address] [place] [address] Thomas Chadwick MD [address] [place] [facility] [place] [address] 10/04/2024 9:00 AM EDT Laboratory [facility] [place] [facility] [address] [facility] [place] [address] G[facility]an [facility] [address] [facility] [place] [address] 10/11/2024 12:30 PM EDT Office Visit Hematology/Oncology State Felicia Arzate [address] [place] [address] [phone] Marielos Morris MD [address] [place] [address] Scheduled Procedures Name Priority Associated Diagnoses Date/Ti [...] this encounter Medical Devices Implanted Type Area Penology Teacher Device Identifier Shelf Expiration Date Model / Serial / Lot Mediport Pwr Isp 8fr [id number] - [id number] Implanted:Qty: 1 on 04/01/2017 by Adrianne Stewart MD at OR [facility] Right: Chest CR BARD : PERIPHERAL VASCULAR 12/26/2018 [id number] / / [id number] documented as of this encounter Advance Directives [...] the patient have Health Care Power of Multiple Pressure Riveter Operator? Yes, not currently available * Full Code [...] Power of Attor barbara? No Care Teams Steel Erector Relationship Specialty Start Date End Date August, Thomas Knapp MD [address] [facility] [place] [address] PCP - General Family Medicine 03/03/24 documented as of this encounter
--- OUTSIDE RECORDS SUMMARY | 2024-06-08 09:15 | External Medical Summary | Summary of Care ---
Author Name Unknown Organization [facility] Address [address] [place] [address] Phone [phone] Care Team Providers Care Road Commissioner Name Role Phone Thomas Chadwick MD Primary Care Provider [phone] Encounter Details Date Type Department Care Team (Late st Contact Info) Description 05/20/2024 Population Health External Data Unspecified Department Allergies Active Allergy Reactions Criticality Noted Date Comments Sulfamethoxazole-Trimethopr im 01/22/2017 HIVES AND LIP SWELLING documented as of this encounter (statuses as of 05/20/2024) Medications Multiple Vitamin (MULTI VITAMIN DAILY) TABS Take 1 Tab by mouth daily. Active Biotin 35871 MCG Oral Tablet Take by mouth. Active [...] Tablet before bedtime. 180 Tablet 4 Active documented as of this encounter (statuses as of 05/20/2024) Active Problems Problem Noted Date Diagnosed Date History of Hodgkin's lymphoma 04/09/2017 HTN, goal below 140/90 07/01/2014 GERD (gastroesophageal reflux disease) 5 documented as of this encounter (statuses as of 05/20/2024) Resolved Problems Problem Noted Date Diagnosed Date Resolved Date Sepsis 05/17/2017 03/03/2024 Febrile neutropenia 04/20/2017 03/03/20 Moderate malnutrition 04/19/20172023 Encounter for antineoplastic chemotherapy 03/31/2017 03/03/2024 documented as of this encounter (statuses as of 05/20/2024) Immunizations Name Administration Dates Next Due Seasonal Influenza, High Dos e, Trivalent, PF, IM (Fluzone HD) 03/03/2024 Seasonal Influenza, Quadrivalent Hd (Fluzone Hd) 02/10/2021 Zoster Vaccine Recombinant (Shingrix) 01/04/2022 documented as of this encounter Social History Tobacco Use Types Packs/Day Years Used Date Smoking Tobacco: Every Day Cigarettes 0.5 1.1 Started: 2023; Last attempted to quit: 01/31/2014 [...] Laboratory Laboratory, [place]ibran Maki [address] [phone] [facility] Laboratory [address] [address] 09/06/2024 11:20 AM EDT [facility] [address] [phone] Thomas Chadwick MD [address] [address] 10/04/2024 9:00 AM EDT Laboratory Laboratory, [place]an [address] [phone] [facility] Laboratory [address] [address] 10/11/2024 12:30 PM EDT Office Visit Hematology/Oncology State Felicia Arzate [address] [place] [phone] Marielos Morris MD [address] [place] [address] Scheduled Procedures Name Priority Associated Diagnoses Date/Ti [...] 10/26, 05/17/2022, Additional history exists Pneumococcal Vaccine: 50+ Years Completed 10/27/2019, 10/28/2018 Influenza Vaccine (FLU [...] this encounter Medical Devices Implanted Type Area Household Refrigeration Mechanic Device Identifier Shelf Expiration Date Model / Serial / Lot Karenport Pwr Isp 8fr [id number] - [id number] Implanted:Qty: 1 on 04/01/2017 by Adrianne Stewart MD at OR [facility] Right: Chest CR BARD : PERIPHERAL VASCULAR 12/26/2018 [id number] / / [id number] documented as of this encounter Advance Directives [...] the patient have Health Care Power of Talent Acquisition Consultant? Yes, not currently available * Full Code [...] Power of Attor barbara? No Care Teams Road Commissioner Relationship Specialty Start Date End Date August, Thomas Knapp MD PCP - General Family Medicine 03/03/24 documented as of this encounter
--- OUTSIDE RECORDS SUMMARY | 2024-06-08 09:15 | External Medical Summary | Summary of Care ---
Author Name Unknown Organization [facility] Address [address] [place] [address] Phone [phone] Care Team Providers Care Wood Model Maker Name Role Phone Unavailable Primary Care Provider Unavailabl e Reason for Visit * Reason Onset Date Comments Medication Question 02/03/2024 Encounter Details Date Type Department Care Team (Late st Contact Info) Description 02/03/[address] [facility] [address] [place] [address] August, Benedicto Knapp MD [address], [place] [phone] Medication Question Allergies Active Allergy Reactions Criticality [...] mouth in the morning. 05/09/2020 Active Biotin 85297 MCG Oral Tablet Take by mouth. Active [...] as of this encounter Miscellaneous Notes * Addendum Note - Benedicto Cisneros MD - 02/04/2024 1:50 PM EDTAddended by: BENEDICTO CISNEROS on: 02/04/2024 01:50 PM Modules accepted: Orders * Telephone Encounter - Benedicto Cisneros MD - 02/04/2024 1:49 PM EDT Rx sent for 30 day supply. Will follow up when she establishes care. Benedicto Cisneros MD * Addendum Note - Lilibeth Ibanez LPN - 02/04/2024 1:43 PM EDTAddended by: LILIBETH IBANEZ on: 02/04/2024 01:43 PM Modules accepted: Orders * Telephone Encounter - Lilibeth Ibanez LPN - 02/04/2024 1:42 PM EDT Patient has not been seen in our office yet but is scheduled to be seen 03/03/[address] Cisneros * Telephone Encounter - Lilibeth Ibanez LPN - 02/04/2024 1:41 PM EDT Did you pend patient's preferred pharmacy and medication before forwarding?yes Pharmacy: [id number] [facility] Pending Prescriptions: Disp Refills Lisinopril-hydroCHLOROthiazide 20-25 MG [...] haveappt 03/03/24. Thank you, Karina Rojas CPhT Club Car Attendant II [facility]) 02/04/2024,1:05 [...] Pt aware. Thank You, Patti Hair CPhT Embedded Systems Software Engineer II [facility] ([facility]) 02/03/2024, 1:34 PM documented in this encounter Plan of Treatment Upcoming Encounters Date Type Department Care Team (Late st Contact Info) Description 03/03/2024 11:20 AM EST [facility] [place] [address] [facility] [phone] Benedicto [facility]isneros MD [address] [facility] [place] [address] 10/04/2024 9:00 AM EDT Laboratory Laboratory, [place] [address] [facility] [phone] [place], Laboratory [address] [facility] [place] [address] 10/11/2024 12:30 PM EDT Office Visit Hematology/Oncology [place] Tor[place]io [place] [address] [place] [phone] Marielos Morris MD [address] [facility] [place] [address] Scheduled Procedures Name Priority Associated Diagnoses Date/Ti [...] this encounter Medical Devices Implanted Type Area Boot Turner Device Identifier Shelf Expiration Date Model / Serial / Lot Mediport Pwr Isp 8fr [id number] - [id number] Implanted:Qty: 1 on 04/01/2017 by Adrianne Stewart MD at [facility] Right: Chest CR BARD : PERIPHERAL VASCULAR 12/26/2018 [id number] / / [id number] documented as of this encounter Visit Diagnoses [...] the patient have Health Care Power of Chief Mate? Yes, not currently available * Full Code [...]
--- OUTSIDE RECORDS SUMMARY | 2024-06-08 09:15 | External Medical Summary | Summary of Care ---
Author Name Unknown Organization [facility] Address [address] [place] [address] Phone [phone] Care Team Providers Care Office Assistant Receptionist Name Role Phone Thomas Chadwick MD Primary Care Provider [phone] Reason for Visit * Reason Onset Date Comments Scan To Read 03/03/2024 Encounter Details Date Type Department Care Team (Late st Contact Info) Description 03/03/2024 Telephone [facility] [address] [place] [address] Thomas Chadwick MD [address] [place] [address] Scan To Read Allergies Active Allergy Reactions Criticality Noted Date Comments Sulfamethoxazole-Trimethopr im 01/22/2017 HIVES AND LIP SWELLING documented as of this encounter (statuses as of 03/08/2024) Medications Multiple Vitamin (MULTI VITAMIN DAILY) TABS Take 1 Tab by mouth daily. Active metFORMIN (GLUCOPHAGE) 500 MG Tablet Take 1 Tablet by mouth in the morning and 1 Tablet before bedtime. 0 Active Atorvastatin Calcium 20 MG Oral Tablet (Lipitor) Take 1 Tablet by mouth in the morning. 1 Active Biotin 73836 MCG Oral Tablet Take by mouth. Active [...] as of this encounter (statuses as of 03/08/2024) Active Problems Problem Noted Date Diagnosed Date History of Hodgkin's lymphoma 04/09/2017 HTN, goal below 140/90 07/01/2014 GERD (gastroesophageal reflux disease) 5 documented as of this encounter (statuses as of 03/08/2024) Resolved Problems Problem Noted Date Diagnosed Date Resolved Date Sepsis 05/17/2017 03/03/2024 Febrile neutropenia 04/20/2017 03/03/20 Moderate malnutrition 04/19/20172023 Encounter for antineoplastic chemotherapy 03/31/2017 03/03/2024 documented as of this encounter (statuses as of 03/08/2024) Immunizations Name Administration Dates Next Due Seasonal [...] No 02/18/2024 Does the household have a [facility] source [facility] income? (Household - for ages [...] Assessment Author No 05/10/2017 5:40 PM EST Christina Perea RN * Do you have serious difficulty [...] encounter Miscellaneous Notes * Telephone Encounter - Gutierrez Jane MD - 03/03/2024 1:35 PM EST Retinal Scan Imaging Sally Butler [id number] Retinal Scan Interpretation: There is no retinopathy in both eyes Diabetes Retinal Imaging Care Plan: The retinal scan results are normal - I will forward this encounter to the Ophthalmology DM Letter Pool [[id number]], they will send a normal retinal scan letter to the patient, and the patient will be seen back for a yearly scan. Gutierrez Jane MD 03/03/2024 1:35 PM * Telephone Encounter - Maria Ines Casillas LPN - 03/03/2024 12:22 PM EST A Diabetic Telemed Eye image was taken and requires your interpretation for Dr Thomas Chadwick. Please check your inbasket for image. Patient prefers to be seen at [facility] if a follow-up appointment is needed. documented in this encounter Plan of Treatment Upcoming Encounters Date Type Department Care Team (Late st Contact Info) Description 08/31/2024 8:00 AM EDT Laboratory Laboratory, [place] [address] [place] [address] [facility] [address] [place] [address] 09/06/2024 11:20 AM EDT Office Visit [facility], [place] [address] [address] AugustThomas MD [address] [place] [address] 10/04/2024 9:00 AM EDT Laboratory Laboratory, [place] [address] [place] [address] [facility] [address] [place] [address] 10/11/2024 12:30 PM EDT Office Visit Hematology/Oncology [facility] [address] [place] [id number] Marielos Morris MD [address] [place] [address] Scheduled Procedures Name Priority Associated Diagnoses Date/Ti [...] this encounter Medical Devices Implanted Type Area Rn Cardiac Device Identifier Shelf Expiration Date Model / Serial / Lot Mediport Pwr Isp 8fr [id number] - [id number] Implanted:Qty: 1 on 04/01/2017 by Adrianne Stewart MD at OR [facility] Right: Chest CR BARD : PERIPHERAL VASCULAR 12/26/2018 [id number] / / [id number] documented as of this encounter Advance Directives [...] the patient have Health Care Power of Flue Cleaner? Yes, not currently available * Full Code [...] Power of Attor barbara? No Care Teams Office Assistant Receptionist Relationship Specialty Start Date End Date August, Thomas Knapp MD [address] [facility] [place] [address] PCP - General Family Medicine 03/03/24 documented as of this encounter
--- OUTSIDE RECORDS SUMMARY | 2024-06-08 09:15 | External Medical Summary | Summary of Care ---
Author Name Unknown Organization [facility] Address [address] [place] [address] Phone [phone] Care Team Providers Care Benefits Coordinator Name Role Phone Thomas Chadwick MD Primary Care Provider [phone] Reason for Visit * Reason Onset Date Comments NEW PATIENT Patient is here to establish care and has no concerns. Medication Administration 03/03/2024 Flu an d/or Pneumo Inj Encounter Details Date Type Department Care Team (Late st Contact Info) Description 03/03/2024 11:20 AM EST Office Visit [facility] [address] [place] [address] Thomas Chadwick MD [address], [place] [id number] Hypertension goal BP (blood pressure) < 140/90*; Type 2 diabetes mellitus with hemoglobin A1c goal of less than 7.0% ([facility]); Tobacco use; Need for prophylactic vaccination and inoculation against influenza; History of Hodgkin's lymphoma Allergies Active Allergy Reactions Criticality Noted Date [...] mouth in the morning. 05/09/2020 Active Biotin 42748 MCG Oral Tablet Take by mouth. Active Lisinopril-hydro CHLOROthiazide 20-25 MG Oral TabletIndication s:Hypertension goal BP (blood pressure) < 140/90 Take 1 Tablet by mouth in the morning. 90 Tablet 3 03/03/2024 Active Varenicline Tartrate (Starter) 0.5 MG X 11 & 1 MG X 42 Tablet Therapy PackIndications: Tobacco use Ramp per directions on the starter pack. 1 Each 03/03/2024 Active Varenicline Tartrate(Continu e) 1 MG Oral TabletIndication s:Tobacco use Take 1 mg by mouth in the morning and 1 mg before bedtime. 60 Tablet 1 03/03/2024 Active Turmeric 500 MG Oral Capsule Take 1 Capsule by mouth in the morning. 03/03/2024 Discontinued (Medication List Clean Up) Lisinopril-hydro CHLOROthiazide 20-25 MG Oral TabletIndication s:Hypertension goal BP (blood pressure) < 140/90 Take 1 Tablet by mouth in the morning. 30 Tablet 02/04/2024 03/03/2024 Discontinued (Refill) documented as of this encounter (statuses as of 03/03/2024) Active Problems Problem Noted Date Diagnosed Date History of Hodgkin's lymphoma 04/09/2017 HTN, goal below 140/90 07/01/2014 GERD (gastroesophageal reflux disease) 5 documented as of this encounter (statuses as of 03/03/2024) Resolved Problems Problem Noted Date Diagnosed Date [...] Date Smoking Tobacco: Every Day Cigarettes 0.5 0.8 Started: 2023; Last attempted to quit: 01/31/2014 Smokeless Tobacco: Never Tobacco Cessation:Ready to Q uit: No; Counseling Given: Not Answered Alcohol Use Standard Drinks/Week Comments No 0 [...] on file documented as of this encounter Last Filed Vital Signs Vital Sign Reading Time Taken Comments Blood Pressure 110/62 03/03/2024 11:27 AM EST Pulse 103 03/03/2024 11:27 AM EST Temperature 36.6 C (97.8 F) 03/03/2024 11:[address] Respiratory Rate 17 03/03/2024 11:27 AM EST Oxygen Saturation 97% 03/03/2024 11:27 AM EST Inhaled Oxygen Concentration - - Weight 72.8 kg (160 lb 9.6 oz) 03/03/2024 11:27 AM EST Height - - Body Mass Index 26.73 10/08/2023 11:21 AM EDT documented in this encounter Functional Status Functional Status Response [...] No 05/10/2017 documented as of this encounter Patient Instructions * Patient Instructions* Maria Ines Casillas LPN - 03/03/2024 12:22 PM EST Images from the original note were not included. Diabetic Retinopathy: Evaluating Your Eyes Diabetic retinopathy is a condition that happens when diabetes damages blood vessels in the rear ofthe eye. It can lead to vision loss. To help catch it early, have a complete dilated eye exam at least once a year. During the exam, the eye healthcare provider will review your medical history, examine your eyes, and check your vision. Women who are and have pre-existing type 1 or type 2 diabetes have an increased risk of retinopathy. Women with diabetes should have an eye exam before or in the first trimester. They should continue to be monitored every trimester and for 1 year after delivery, depending on the severity of the retinopathy. The retina is the light-sensitive part of the eye that allows you to see. High blood sugar can damage blood vessels of the retina and cause them to leak or bleed. This damage can lead to abnormal blood vessel growth. This condition is called diabetic retinopathy. You may not have symptoms early in the disease. Later, there may be floaters, blurred vision, or poor night vision. There may also be partial or complete vision loss. Early cases of diabetic retinopathy can be treated by carefully controlling blood sugar, blood pressure, and cholesterol. Surgery or laser treatments may help restore lost vision. Laser surgery can shrink abnormal blood vessels or close ones that are leaking. Medicines injected in the eye can help decrease swelling of the retina. Home care Take all medicines, including insulin or oral diabetic medicine, exactly as prescribed. Follow the diet advised by your healthcare provider. If you have high cholesterol, follow a low-fat, low-cholesterol diet. Monitor blood sugars as advised. Try to achieve your ideal weight. If you smoke, quit smoking. Tobacco use worsens the effect of diabetes on your blood vessels. If you have high blood pressure, consider buying an automatic blood pressure machine. These are available at most pharmacies. Use this to monitor your blood pressure. Report your blood pressure readings to your healthcare provider. Exercise regularly. Follow-up care Follow up with your healthcare provider, or as advised. You must have a complete eye exam at least once a year, more often if needed. Untreated diabetic retinopathy can lead to complete loss of vision. Occupational therapists can help you adapt to any vision loss you have, including learning techniques to safely administer insulin. When to seek medical advice Call your healthcare provider right away if any of these occur. Increasing blurriness or any sudden changes in your vision Sudden flashes of light inside your eye New floaters (small dots or strings that seem to be moving across your field of vision) Eye pain, redness, or discharge from your eyelid New dark spots appearing in your field of vision Halos around lights Dimness of vision Partial or complete loss of vision Women with diabetes should have a complete eye exam before becoming , or as soon as possible when they find out they are . Retinopathy sometimes worsens during . Your eye exam Your eye healthcare provider uses an eye chart and other tools to check your vision. Then he or sheexamines your eyes for signs of disease. You are given eye drops to widen (dilate) your pupils. Youmay have one or more of the following tests: Tonometry to measure fluid pressure inside the eye. Slit lamp exam to allow the healthcare provider to view the structures of your eye. Ultrasound to create an image of the eye using sound waves. Ultrasound may be used if blood is found in the clear gel that fills the eye (vitreous). Ocular coherence tomography (OCT) to create an image of the retina using light waves. This shows ifthere is fluid leaking into certain parts of the eye. It can also measure the thickness of the retina. Fluorescein angiography This test may be done to check the health of the inside lining of the eye (retina). It also checks the tiny blood vessels (capillaries) that carry blood to the retina. During the test: Photographs are taken of the retina. A dye is then injected into the bloodstream through the arm or hand. The dye travels to the capillaries in the eye. More photographs are taken of the retina. The dye causes the capillaries to stand out on the photographs. You may feel brief nausea during the procedure. For a few hours after the test, your skin, eyes, and urine may appear yellow. Talk with your healthcare provider for more information about this test. Date Last Reviewed: 09/27/201519991394-5930 [employer]. [address] [place] [address]. All rights reserved. This information is not intended as a substitute for professional medical care. Always follow your healthcare professional's instructions. documented in this encounter Progress Notes * Maria Ines Casillas LPN - 03/03/2024 11:42 AM EST Images from the original note were not included. The patient has been properly identified by confirmation of name and date of . Pre-Administration Time Out Procedure Performed: Yes Patient Identified (Ask Name/Date of ): Yes Does the patient have a fever greater than 101 degrees today? No Patient allergic to latex? No Has the patient ever fainted after receiving an injection? No VFC Stock: No Immunization(s) verified: Yes, Immunization Name: Flu, VIS Sheet(s) given: Yes Verified Side and Site: Yes Verified Shot(s) with Parent(s)/Patient: Yes The importance of having a yearly diabetic eye exam has been discussed with patient. Order and/or Referral placed along with patient instructions. Provider made aware. Maria Ines Casillas LPN The importance of having a yearly diabetic eye exam has been discussed with patient. Order and/or Referral placed along with patient instructions. Provider made aware. Maria Ines Casillas LPN Diabetic Retinopathy: Evaluating Your Eyes Diabetic retinopathy is a condition that happens when diabetes damages blood vessels in the rear ofthe eye. It can lead to vision loss. To help catch it early, have a complete dilated eye exam at least once a year. During the exam, the eye healthcare provider will review your medical history, examine your eyes, and check your vision. Women who are and have pre-existing type 1 or type 2 diabetes have an increased risk of retinopathy. Women with diabetes should have an eye exam before or in the first trimester. They should continue to be monitored every trimester and for 1 year after delivery, depending on the severity of the retinopathy. The retina is the light-sensitive part of the eye that allows you to see. High blood sugar can damage blood vessels of the retina and cause them to leak or bleed. This damage can lead to abnormal blood vessel growth. This condition is called diabetic retinopathy. You may not have symptoms early in the disease. Later, there may be floaters, blurred vision, or poor night vision. There may also be partial or complete vision loss. Early cases of diabetic retinopathy can be treated by carefully controlling blood sugar, blood pressure, and cholesterol. Surgery or laser treatments may help restore lost vision. Laser surgery can shrink abnormal blood vessels or close ones that are leaking. Medicines injected in the eye can help decrease swelling of the retina. Home care Take all medicines, including insulin or oral diabetic medicine, exactly as prescribed. Follow the diet advised by your healthcare provider. If you have high cholesterol, follow a low-fat, low-cholesterol diet. Monitor blood sugars as advised. Try to achieve your ideal weight. If you smoke, quit smoking. Tobacco use worsens the effect of diabetes on your blood vessels. If you have high blood pressure, consider buying an automatic blood pressure machine. These are available at most pharmacies. Use this to monitor your blood pressure. Report your blood pressure readings to your healthcare provider. Exercise regularly. Follow-up care Follow up with your healthcare provider, or as advised. You must have a complete eye exam at least once a year, more often if needed. Untreated diabetic retinopathy can lead to complete loss of vision. Occupational therapists can help you adapt to any vision loss you have, including learning techniques to safely administer insulin. When to seek medical advice Call your healthcare provider right away if any of these occur. Increasing blurriness or any sudden changes in your vision Sudden flashes of light inside your eye New floaters (small dots or strings that seem to be moving across your field of vision) Eye pain, redness, or discharge from your eyelid New dark spots appearing in your field of vision Halos around lights Dimness of vision Partial or complete loss of vision Women with diabetes should have a complete eye exam before becoming , or as soon as possible when they find out they are . Retinopathy sometimes worsens during . Your eye exam Your eye healthcare provider uses an eye chart and other tools to check your vision. Then he or sheexamines your eyes for signs of disease. You are given eye drops to widen (dilate) your pupils. Youmay have one or more of the following tests: Tonometry to measure fluid pressure inside the eye. Slit lamp exam to allow the healthcare provider to view the structures of your eye. Ultrasound to create an image of the eye using sound waves. Ultrasound may be used if blood is found in the clear gel that fills the eye (vitreous). Ocular coherence tomography (OCT) to create an image of the retina using light waves. This shows ifthere is fluid leaking into certain parts of the eye. It can also measure the thickness of the retina. Fluorescein angiography This test may be done to check the health of the inside lining of the eye (retina). It also checks the tiny blood vessels (capillaries) that carry blood to the retina. During the test: Photographs are taken of the retina. A dye is then injected into the bloodstream through the arm or hand. The dye travels to the capillaries in the eye. More photographs are taken of the retina. The dye causes the capillaries to stand out on the photographs. You may feel brief nausea during the procedure. For a few hours after the test, your skin, eyes, and urine may appear yellow. Talk with your healthcare provider for more information about this test. Date Last Reviewed: 09/27/201519994460-9912 [employer]. [address] [place] [id number]. All rights reserved. This information is not intended as a substitute for professional medical care. Always follow your healthcare professional's instructions. * May, Thomas Knapp MD - 03/03/2024 11:39 AM EST Images from the original note were not included. Assessment and Plan 1. Hypertension goal BP (blood pressure) < 140/90 Blood pressure at goal. Continue lisinopril-HCTZ. CMP and CBC at next appointment. - Lisinopril-hydroCHLOROthiazide 20-25 MG Oral Tablet; Take 1 Tablet by mouth in the morning. Dispense: 90 Tablet; Refill: 3 - COMPREHENSIVE METABOLIC PANEL; Future - CBC WITH WBC DIFFERENTIAL; Future 2. Type 2 diabetes mellitus with hemoglobin A1c goal of less than 7.0% ([facility]) A1c 5.6. Continue metformin 500 mg twice daily. Appropriately on statin. A1c, lipid panel prior to next appointment. Diabetic eye exam in office today. - HEMOGLOBIN A1C; Future - LIPID PANEL WITH DIRECT LDL IF TG IS HIGH; Future - TELEMEDICINE DIABETIC EYE 3. Tobacco use Smoking 1/2 pack per day since early 2023 after being smoke free for 9 years. Start varenicline as below. Declined LDCT lung cancer screening in office today. - Varenicline Tartrate (Starter) 0.5 MG X 11 & 1 MG X 42 Tablet Therapy Pack; Ramp per directions on the starter pack. Dispense: 1 Each; Refill: 0 - Varenicline Tartrate(Continue) 1 MG Oral Tablet; Take 1 mg by mouth in the morning and 1 mg before bedtime. Dispense: 60 Tablet; Refill: 1 4. Need for prophylactic vaccination and inoculation against influenza - INFLUENZA VAC., TRIVALENT, HD, PF, 65 AND ABOVE, 0.5 ML IM (FLUZONE HD) 5. History of Hodgkin's lymphoma See below for details. Follows with hematology/oncology once yearly. Declined Dexa scan in office today. Wrap-Up Follow up in 6 months. History of Present Illness The patient is a 68 year old female with past medical history of HTN, GERD, Hodgkins lymphoma who presents to establish care with the office. History of nodular sclerosing Hodgkins lymphoma stage 3b diagnosed 03/04/2017 after presenting with weight loss, fever, night sweats. Treat with 2 cycles of ABVD followed by 4 cycles of AVD. Completedtherapy in September 2017. In remission. Patient also has a history of hypertension currently taking lisinopril hydrochlorothiazide with blood pressure in office today at goal 110/62. Patient has started smoking half pack per day after being smoke free for 9 years. She notes recent of her 2nd and a back surgery earlier this year resulted in increased stress and her turning back to cigarettes. Allergy to Bactrim. Physical Exam Vitals: 03/03/24 1127 Temp: 36.6 C (97.8 F) Pulse: 103 Resp: 17 SpO2: 97% BP: 110/62 Physical Exam Physical Exam Vitals reviewed. Constitutional: General: She is not in acute distress. Cardiovascular: Rate and Rhythm: Normal rate and regular rhythm. Heart sounds: No murmur heard. Pulmonary: Effort: Pulmonary effort is normal. No respiratory distress. Breath sounds: Normal breath sounds. Musculoskeletal: Cervical back: Neck supple. Right lower leg: No edema. Left lower leg: No edema. Lymphadenopathy: Cervical: No cervical adenopathy. Neurological: General: No focal deficit present. Mental Status: She is alert. This note has been completed in part utilizing [employer] Speech Voice Recognition Software. Due to technical limitations of the software, grammatical errors, random word insertions, prounoun errors, and incomplete sentences may occur. Any formal questions or concerns about the content, text, or information contained within the body of this dictation should be directly addressed to the provider for clarification. documented in this encounter Nursing Notes * Maria Ines Casillas LPN - 03/03/2024 11:29 AM EST The patient has been properly identified by confirmation of name and date of . Chief Complaint Patient presents with NEW PATIENT Patient is here to establish care and has no concerns. documented in this encounter Plan of Treatment Upcoming Encounters Date Type Department Care Team (Late st Contact Info) Description 08/31/2024 8:00 AM EDT [facility] [place] [facility] [address] [place] [address] [facility] [address] [place] [address] 09/06/2024 11:20 AM EDT Office Visit [facility] [place] [address] [place] [address] AugustThomas MD [address] [place] [address] 10/04/2024 9:00 AM EDT [facility] [place] [address] [place] [address] [facility] [address] [place] [address] 10/11/2024 12:30 PM EDT Office Visit Hematology/Oncology [facility] [address] [facility] [place], [place] [id number] Marielos Morris MD [address] [place] [address] Scheduled Orders Name Type Priority Associated Diagnoses Orde r Schedule HEMOGLOBIN A1C Lab Routine Type 2 diabetes mellitus with hemoglobin A1c goal of less than 7.0% (HCC) Expected: 03/03/2024 (Approximate), Expires: 03/03/2025 COMPREHENSIVE METABOLIC PANEL Lab Routine Hypertension goal BP (blood pressure) < 140/90 Expected: 03/03/2024 (Approximate), Expires: 03/03/2025 LIPID PANEL WITH DIRECT LDL IF TG IS HIGH Lab Routine Type 2 diabetes mellitus with hemoglobin A1c goal of less than 7.0% (HCC) Expected: 03/03/2024, Expires: 03/03/2025 CBC WITH WBC DIFFERENTIAL Lab Routine Hypertension goal BP (blood pressure) < 140/90 Expected: 03/03/2024 (Approximate), Expires: 03/03/2025 Scheduled Procedures Name Priority Associated Diagnoses Date/Ti me COLONOSCOPY FLEXIBLE WITH EN DOSCOPIC ULTRASOUND EXAM Recall Colon cancer screening Health Maintenance Due Date Last Done Comments DXA Scan 1953 Hepatitis C Screening 1971 DTap/Tdap Vaccines (1 - Tdap) 1972 Cologuard 1998 Fecal Occult Blood Test 1998 Sigmoidoscopy 1998 Zoster Vaccines (1 of 2) 2003 Adult Wellness Visit 2019 COVID-19 Vaccine ( season) 2023 06/23/2020, 05/26/2020 GFR 09/30/2024 10/01/2023, [...] this encounter Medical Devices Implanted Type Area Child Custody Evaluator Device Identifier Shelf Expiration Date Model / Serial / Lot Med[employer] Pwr Isp 8fr [id number] - [id number] Implanted:Qty: 1 on 04/01/2017 by Adrianne Stewart MD at OR [facility] Right: Chest CR BARD : PERIPHERAL VASCULAR 12/26/2018 [id number] / / [id number] documented as of this encounter Procedures Procedure Name Priority Date/Time Associated Diagnosis Comments TELEMEDICINE DIABETIC EYE Routine 03/03/2024 Type 2 diabetes mellitus with hemoglobin A1c goal of less than 7.0% (HCC) documented in this encounter Results * TELEMEDICINE DIABETIC EYE (03/03/2024) 03/03/2024 Thomas Chadwick MD DIGITAL PHOTOGRAPHY documented in this encounter Visit Diagnoses Diagnosis Hypertension goal BP (blood pressure) < 140/90- Primary Unspecified essential hypertension Type 2 diabetes mellitus with hemoglobin A1c goal of less than 7.0% (HCC) Tobacco use Tobacco use disorder Need for prophylactic vaccination and inoculation against influenza History of Hodgkin's lymphoma Personal history of Hodgkin's disease documented in this encounter Advance Directives * [...] the patient have Health Care Power of [employer]? Yes, not currently available * Full Code [...] Power of Attor barbara? No Care Teams Benefits Coordinator Relationship Specialty Start Date End Date August, Thomas Knapp MD [address] [place] [facility] [place] [address] PCP - General Family Medicine 03/03/24 documented as of this encounter
--- OUTSIDE RECORDS SUMMARY | 2024-06-08 09:15 | External Medical Summary | Summary of Care ---
Author Name Unknown Organization [facility] Address [address] [place] [address] Phone [phone] Care Team Providers Care Oil Dipper Name Role Phone Thomas Chadwick MD Primary Care Provider [phone] Reason for Visit * Reason Onset Date Comments Health Maintenance 03/10/2024 Encounter Details Date Type Department Care Team (Late st Contact Info) Description 03/10/2024 Telephone [facility] [address] [place] [address] Thomas Chadwick MD [address] [place] [address] Health Maintenance Allergies Active Allergy Reactions Criticality Noted Date Comments Sulfamethoxazole-Trimethopr im 01/22/2017 HIVES AND LIP SWELLING documented as of this encounter (statuses as of 03/10/2024) Medications Multiple Vitamin (MULTI VITAMIN DAILY) TABS Take 1 Tab by mouth daily. Active metFORMIN (GLUCOPHAGE) 500 MG Tablet Take 1 Tablet by mouth in the morning and 1 Tablet before bedtime. 0 Active Atorvastatin Calcium 20 MG Oral Tablet (Lipitor) Take 1 Tablet by mouth in the morning. 1 Active Biotin 51388 MCG Oral Tablet Take by mouth. Active [...] as of this encounter (statuses as of 03/10/2024) Active Problems Problem Noted Date Diagnosed Date History of Hodgkin's lymphoma 04/09/2017 HTN, goal below 140/90 07/01/2014 GERD (gastroesophageal reflux disease) 5 documented as of this encounter (statuses as of 03/10/2024) Resolved Problems Problem Noted Date Diagnosed Date Resolved Date Sepsis 05/17/2017 03/03/2024 Febrile neutropenia 04/20/2017 03/03/20 Moderate malnutrition 04/19/20172023 Encounter for antineoplastic chemotherapy 03/31/2017 03/03/2024 documented as of this encounter (statuses as of 03/10/2024) Immunizations Name Administration Dates Next Due Seasonal [...] No 02/18/2024 Does the household have a acoma[place]laguna service unit[place] source of income? (Household - for ages [...] 5:40 PM EST Huey Perea RN * Do you have serious [...] encounter Miscellaneous Notes * Telephone Encounter - Jillian Dawn LPN - 03/10/2024 8:52 AM EST Care Gaps Comprehensive Care Outreach Last Office/Telemedicine Visit: 03/03/2024 (in office), Visit date not found (telemedicine) Next Office Visit: Visit date not found Hemoglobin AIC Results: No results found for: "HEMOGLOBIN A1C" BP Readings from Last 1 Encounters: 03/03/24 110/62 Reviewed Health Maintenance below: Health Maintenance Topic Date Due DXA Scan Never done Hepatitis C Screening Never done DTap/Tdap Vaccines (1 - Tdap) Never done Adult Wellness Visit Never done Zoster Vaccines (2 of 2) 03/01/2022 COVID-19 Vaccine (3 - season) 2023 Dexa declined last week with pcp Aweduardo Ov already scheduled Care Gap Outreach Action Taken: Stereotaxist message sent documented in this encounter Plan of Treatment Upcoming Encounters Date Type Department Care Team (Late st Contact Info) Description 08/31/2024 8:00 AM EDT Laboratory Laboratory, [address] [place] [address] Sophie Leary [address] [facility] [place] [address] 09/06/2024 11:20 AM EDT Office [facility] [place] [facility] [address] [place] [address] [place] [address] Thomas Chadwick MD [address] [place] [address] 10/04/2024 9:00 AM EDT Laboratory Laboratory, [address] [place] [address] [place], Laboratory [address] [place] [address] 10/11/2024 12:30 PM EDT Office Visit Hematology/Oncology [facility] 200 [facility] [place] [place] [phone] Marielos Morris MD 200 [facility] [place] [address] Scheduled Procedures Name Priority Associated Diagnoses Date/Ti [...] this encounter Medical Devices Implanted Type Area Front End Mechanic Device Identifier Shelf Expiration Date Model / Serial / Lot Mediport Pwr Isp 8fr [id number] - [id number] Implanted:Qty: 1 on 04/01/2017 by Adrianne Stewart MD at OR [facility] Right: Chest CR BARD : PERIPHERAL VASCULAR 12/26/2018 [id number] / / [id number] documented as of this encounter Advance Directives [...] the patient have Health Care Power of Customer Advocacy Manager? Yes, not currently available * Full Code [...] Power of Attor barbara? No Care Teams Oil Dipper Relationship Specialty Start Date End Date August, Thomas Knapp MD [address] [place] [address] PCP - General Family Medicine 03/03/24 documented as of this encounter
--- OUTSIDE RECORDS SUMMARY | 2024-06-08 09:15 | External Medical Summary | Summary of Care ---
Author Name Unknown Organization [facility] Address [address] [place] [address] Phone [phone] Care Team Providers Care Wide Area Network Systems Administrator Name Role Phone Thomas Chadwick MD Primary Care Provider [phone] Reason for Visit * Reason Onset Date Comments NEW PATIENT Patient is here to establish care and has no concerns. Medication Administration 03/03/2024 Flu an d/or Pneumo Inj Encounter Details Date Type Department Care Team (Late st Contact Info) Description 03/03/2024 11:20 AM EST Office Visit [facility] [address] [place] [address] Thomas Chadwick MD [address], [place] [phone] Hypertension goal BP (blood pressure) < 140/90*; Type 2 diabetes mellitus with hemoglobin A1c goal of less than 7.0% ([facility]); Tobacco use; Need for prophylactic vaccination [...] mouth in the morning. 05/09/2020 Active Biotin 34841 MCG Oral Tablet Take by mouth. Active [...] information about this test. Date Last Reviewed: 09/27/201519994164-0397 [employer]. [address] [place] [address]. All rights reserved. This information is not [...] information about this test. Date Last Reviewed: 09/27/201519990832-9[address] [employer] [place] [address], [place] [address]. All rights reserved. This information is not [...] hemoglobin A1c goal of less than 7.0% ([facility]) A1c 5.6. Continue metformin 500 mg [...] note has been completed in part utilizing [employer] Speech Voice Recognition Software. Due to technical [...] Description 08/31/2024 8:00 AM EDT Laboratory Laboratory, [address] [place] [place] [address] Trail [facility] [address] [place] [address] 09/06/2024 11:20 AM EDT Office Visit [facility], [address] [address] Thomas Chadwick MD [address] [place] [address] 10/04/2024 9:00 AM EDT Laboratory Laboratory, [address] [facility] [address] [place] [address] Trail [facility] [address] [place] [address] 10/11/2024 12:30 PM EDT Office Visit Hematology/Oncology [facility] [address] [place] [address] Marielos Morris MD [address] [facility] [place] [address] Scheduled Orders Name Type Priority Associated Diagnoses [...] this encounter Medical Devices Implanted Type Area Double Cut Sawyer Device Identifier Shelf Expiration Date Model / Serial / Lot Chayo Solitario Isp 8fr [id number] - [id number] Implanted:Qty: 1 on 04/01/2017 by Adrianne Stewart MD at OR [facility] Right: Chest CR BARD : PERIPHERAL VASCULAR 12/26/2018 [id number] / / [id number] documented as of this encounter Procedures Procedure [...] the patient have Health Care Power of Bone Drier Operator? Yes, not currently available * Full [...] Power of Attor barbara? No Care Teams Wide Area Network Systems Administrator Relationship Specialty Start Date End Date August, Thomas Knapp MD [address] [place] [address] PCP - General Family Medicine 03/03/24 documented as of this encounter
--- OUTSIDE RECORDS SUMMARY | 2024-06-08 09:16 | External Medical Summary | Summary of Care ---
Author Name Unknown Organization [facility] Address [address] [place] [address] Phone [phone] Care Team Providers Care Vessel Traffic Officer Name Role Phone Unavailable Primary Care Provider Unavailabl e Reason for Visit * Reason Onset Date Comments Medication Question 02/03/2024 Encounter Details Date Type Department Care Team (Late st Contact Info) Description 02/03/2024 Telephone [facility] [address] [place] [address] August, Thomas Knapp MD [address] [place], [place] [phone] Medication Question Allergies Active Allergy Reactions Criticality Noted Date Comments Sulfamethoxazole-Trimethopr im 01/22/2017 HIVES AND LIP SWELLING documented as of this encounter (statuses as of 02/04/2024) Medications Medication Sig Dispensed Refills Start Date End Date Status LISINOPRIL-HYDROCHLORO THIAZIDE 20-25 MG PO TABS Take 1 tablet by mouth daily 04/19/2014 Active Multiple Vitamin (MULTI VITAMIN DAILY) TABS Take 1 Tab by mouth daily. Active metFORMIN (GLUCOPHAGE) 500 MG Tablet Take 1 Tablet by mouth in the morning and 1 Tablet before bedtime. 12/17/2019 Active Atorvastatin Calcium 20 MG Oral Tablet (Lipitor) Take 1 Tablet by mouth in the morning. 05/09/2020 Active Biotin 80208 MCG Oral Tablet Take by mouth. Active Turmeric 500 MG Oral Capsule Take 1 Capsule by mouth in the morning. Active documented as of this encounter (statuses [...] encounter Miscellaneous Notes * Addendum Note - Lilibeth Ibanez LPN - 02/04/2024 1:43 PM EDTAddended by: LILIBETH IBANEZ on: 02/04/2024 01:43 PM Modules accepted: Orders * Telephone Encounter - Lilibeth Ibanez LPN - 02/04/2024 1:42 PM EDT Patient has not been seen in our office yet but is scheduled to be seen 03/03/[address] Chadwick * Telephone Encounter - Lilibeth Ibanez LPN - 02/04/2024 1:41 PM EDT Did you pend patient's preferred pharmacy and medication before forwarding?yes Pharmacy: [id number] [address] [facility]Clyde ZAMORANO Pending Prescriptions: Disp Refills Lisinopril-hydroCHLOROthiazide 20-25 [...] haveappt 03/03/24. Thank you, Karina Rojas CPhT Grinder Dresser II [facility] 02/04/2024,1:05 [...] Pt aware. Thank You, Patti Hair CPhT Gas Producer II [facility]) 02/03/2024, 1:34 PM documented in this encounter Plan of Treatment Upcoming Encounters Date Type Department Care Team (Late st Contact Info) Description 03/03/2024 11:20 AM EST Office Visit [facility] [place] [address] [place] [facility] [place] [address] Thomas Chadwick MD [address] [place] [address] 10/04/2024 9:00 AM EDT Laboratory Laboratory, [place] [address] [place] [facility] [place] [address] [facility] [address] [place] [address] 10/11/2024 12:30 PM EDT Office Visit Hematology/Oncology [facility] [place] [address] [facility] [place] [address] Marielos Morris MD [address] [facility] [place] [address] Scheduled Procedures Name Priority Associated Diagnoses Date/Ti [...] 09/2022, 01/01/2023, Additional history exists Albumin/Creatinine Ratio 05/07/2026 024, 05/17/2022, 05/04/2021, Additional [...] this encounter Medical Devices Implanted Type Area Sign Builder Device Identifier Shelf Expiration Date Model / Serial / Lot Mediport Pwr Isp 8fr [id number] - [id number] Implanted:Qty: 1 on 04/01/2017 by Adrianne Stewart MD at [facility] Right: Chest CR BARD : PERIPHERAL VASCULAR 12/26/2018 [id number] / / [id number] documented as of this encounter Advance Directives [...] the patient have Health Care Power of Metal Engineering Process Worker? Yes, not currently available * Full Code [...]
--- OUTSIDE RECORDS SUMMARY | 2024-06-08 09:16 | External Medical Summary | Summary of Care ---
Author Name Unknown Organization [facility] Address [address] [place] [address] Phone [phone] Care Team Providers Care Environmental Health Physician Name Role Phone Unavailable Primary Care Provider Unavailabl e Reason for Visit * Reason Onset Date Comments Order Request 12/30/2023 Screening mammog carole Encounter Details Date Type Department Care Team (Late st Contact Info) Description 12/30/2023 Telephone [facility] [address] [place] [address] May, Thomas Knapp MD [address] [place], [place] [phone] Order Request (Screening mammogram) Allergies Active Allergy Reactions Criticality Noted Date Comments Sulfamethoxazole-Trimethopr im 01/22/2017 HIVES AND LIP SWELLING documented as of this encounter (statuses as of 12/31/2023) Medications Medication Sig Dispensed Refills Start Date [...] mouth in the morning. 05/09/2020 Active Biotin 89802 MCG Oral Tablet Take by mouth. Active Turmeric 500 MG Oral Capsule Take 1 Capsule by mouth in the morning. Active documented as of this encounter (statuses as of 12/31/2023) Active Problems Problem Noted Date Diagnosed Date Sepsis 05/17/2017 Fever 05/11/2017 Diarrhea 05/11/2017 Hypotension 05/11/2017 Tachycardia 05/07/2017 SOB (shortness of breath) 05/07/2017 Thrush 05/07/2017 Febrile neutropenia 04/20/2017 Moderate malnutrition 04/19/2017 History of Hodgkin's lymphoma 04/09/2017 Lymphoma 04/09/2017 Encounter for antineoplastic chemotherapy 2016 HTN, goal below 140/90 07/01/2014 GERD (gastroesophageal reflux disease) 5 documented as of this encounter (statuses as of 12/31/2023) Immunizations Name Administration Dates Next Due Seasonal [...] encounter Miscellaneous Notes * Addendum Note - Manjinder Laguerre LPN - 12/31/2023 1:23 PM EDTAddended by: MANJINDER LAGUERRE on: 12/31/2023 01:23 PM Modules accepted: Orders * Telephone Encounter - Manjinder Laguerre LPN - 12/31/2023 1:21 PM EDT Pended order. Please review and sign if appropriate. thanks * Telephone Encounter - Asia Ramirez OSA - 12/30/2023 4:09 PM EDT Laverne is scheduled 01/05 for her annual screening mammogram. She has an appointment in February with Dr. Chadwick to establish care. Please review and place screening mammogram order if acceptable. Thank you documented in this encounter Plan of Treatment Upcoming Encounters Date Type Department Care Team (Late st Contact Info) Description 01/06/2024 9:30 AM EDT Imaging Radiology [facility] [address] [place] [address] 03/03/2024 11:20 AM EST Office Visit [place] [address] [facility] [address] Thomas Chadwick MD [address] [place], [place] [address] 10/04/2024 9:00 AM EDT Laboratory Laboratory, [place] [address] [place] [facility] [place] [address] [place], Laboratory [address] [place], [place] [address] 10/11/2024 12:30 PM EDT Office Visit Hematology/Oncology [facility] [place] [address] [facility] [place] [address] Marielos Morris MD [address] [place] [address] Scheduled Procedures Name Priority Associated Diagnoses Date/Ti [...] 2023 04/25/2023, 02/20/2022, 02/10/2021, Additional history exists Mammogram 01/02/2024 01/01/2023, 09/2022, 12/26/2021, Additional history exists GFR 09/30/2024 10/01/2023, 04/28, 11/13/2022, Additional history exists Albumin/Creatinine Ratio 05/07/2026 024, [...] this encounter Medical Devices Implanted Type Area Spanish Instructor Device Identifier Shelf Expiration Date Model / Serial / Lot Mediport Pwr Isp 8fr [id number] - [id number] Implanted:Qty: 1 on 04/01/2017 by Adrianne Stewart MD at OR [facility] Right: Chest CR BARD : PERIPHERAL VASCULAR 12/26/2018 [id number] / / [id number] documented as of this encounter Advance Directives [...] the patient have Health Care Power of Gambreler? Yes, not currently available * Full Code [...]
--- OUTSIDE RECORDS SUMMARY | 2024-06-08 09:16 | External Medical Summary | Summary of Care ---
Author Name Unknown Organization [facility] Address [address] [place] [address] Phone [phone] Care Team Providers Care Mechanical Lead Name Role Phone Unavailable Primary Care Provider Unavailabl e Reason for Visit * Reason Onset Date Comments Medication Question 02/03/2024 Encounter Details Date Type Department Care Team (Late st Contact Info) Description 02/03/2024 Telephone [facility] [address] [place] [address] August, Thomas Knapp MD [address] [place], [place] [phone] Medication Question Allergies Active Allergy Reactions Criticality Noted Date Comments Sulfamethoxazole-Trimethopr im 01/22/2017 HIVES AND LIP SWELLING documented as of this encounter (statuses as of 02/03/2024) Medications Medication Sig Dispensed Refills Start Date [...] mouth in the morning. 05/09/2020 Active Biotin 78599 MCG Oral Tablet Take by mouth. Active Turmeric 500 MG Oral Capsule Take 1 Capsule by mouth in the morning. Active documented as of this encounter (statuses as of 02/03/2024) Active Problems Problem Noted Date Diagnosed Date Sepsis 05/17/2017 Fever 05/11/2017 Diarrhea 05/11/2017 Hypotension 05/11/2017 Tachycardia 05/07/2017 SOB (shortness of breath) 05/07/2017 Thrush 05/07/2017 Febrile neutropenia 04/20/2017 Moderate malnutrition 04/19/2017 History of Hodgkin's lymphoma 04/09/2017 Lymphoma 04/09/2017 Encounter for antineoplastic chemotherapy 2016 HTN, goal below 140/90 07/01/2014 GERD (gastroesophageal reflux disease) 5 documented as of this encounter (statuses as of 02/03/2024) Immunizations Name Administration Dates Next Due Seasonal [...] encounter Miscellaneous Notes * Telephone Encounter - Patti Hair PHARM Tech - 02/03/2024 1:33 PM EDT Pt calling in to see if could get refill on a med. Pt says she has not yet seen the office or had her appt yet. Advised she would need to request refill from previous office until establishes with appt. Pt aware. Thank You, Patti Hair [facility] Clay Miller II [facility] 02/03/2024, 1:34 PM documented in this encounter Plan of Treatment Upcoming Encounters Date Type Department Care Team (Late st Contact Info) Description 03/03/2024 11:20 AM EST Office Visit [place] [address] [place] [facility] [place] [id number] AugustThomas MD [address] [place] [facility] [place] [address] 10/04/2024 9:00 AM EDT Laboratory Laboratory, [place] [address] [facility] [phone] [place], Laboratory [address] [place] [facility] [place] [address] 10/11/2024 12:30 PM EDT Office Visit Hematology/Oncology [place] [address] [facility] [place] [address] Marielos Morris MD [address] [facility] [place] [address] Scheduled Procedures Name Priority Associated Diagnoses Date/Ti [...] this encounter Medical Devices Implanted Type Area Decatizer Device Identifier Shelf Expiration Date Model / Serial / Lot Mediport Pwr Isp 8fr [id number] - [id number] Implanted:Qty: 1 on 04/01/2017 by Adrianne Stewart MD at OR [facility] Right: Chest CR BARD : PERIPHERAL VASCULAR 12/26/2018 [id number] / / [id number] documented as of this encounter Advance Directives [...] the patient have Health Care Power of Jewelry Mold Maker? Yes, not currently available * Full Code Date Activated Date Inactivated Comments 05/07/2017 6:12 PM 05/08/2017 2:54 PM This order reflects the patients wishes and were consensually [...]
--- OUTSIDE RECORDS SUMMARY | 2024-06-08 09:16 | External Medical Summary | Summary of Care ---
Author Name Unknown Organization [facility] Address [address] [place] [address] Phone [phone] Care Team Providers Care Entertainment Usher Name Role Phone Unavailable Primary Care Provider Unavailabl e Reason for Visit * Reason Onset Date Comments Order Request 12/30/2023 Screening mammog carole Encounter Details Date Type Department Care Team (Late st Contact Info) Description 12/30/2023 Telephone [facility] [address] [place] [address] May, Benedicto Knapp MD [address] [place], [place] [phone] Order Request (Screening mammogram) Allergies Active Allergy [...] mouth in the morning. 05/09/2020 Active Biotin 35155 MCG Oral Tablet Take by mouth. Active [...] Addendum Note - Benedicto Cisneros MD - 12/31/2023 3:56 PM EDTAddended by: BENEDICTO CISNEROS on: 12/31/2023 03:56 PM Modules accepted: Orders * Telephone Encounter - Benedicto Cisneros MD - 12/31/2023 3:56 PM EDT Order for mammogram signed. Benedicto Cisneros MD * Addendum Note - Manjinder Laguerre LPN [...] has an appointment in February with Dr. Cisneros to establish care. Please review and place screening mammogram order if acceptable. Thank you documented in this encounter Plan of Treatment Upcoming Encounters Date Type Department Care Team (Late st Contact Info) Description 01/06/2024 9:30 AM EDT Imaging Radiology [facility] [address] [facility] [address] [facility] [place] [address] 03/03/2024 11:20 AM EST Office Visit Family [facility] [address] [place] [address] Benedicto Cisneros MD [address] [place] [address] 10/04/2024 9:00 AM EDT Laboratory Laboratory, [place] [address] [place] [address] [facility] [address] [place] [address] 10/11/2024 12:30 PM EDT Office Visit Hematology/Oncology [facility] [address] [facility] [place] [phone] Marielos Morris MD [address] [facility] [place] [address] Scheduled Orders Name Type Priority Associated Diagnoses Orde r Schedule MAMMOGRAM SCREENING PHYLLIS BILATERAL Medical Imaging Routine Encounter for screening mammogram for breast cancer Expected: 06/29/2024, Expires: 01/29/2025 Scheduled Procedures Name Priority Associated Diagnoses Date/Ti [...] this encounter Medical Devices Implanted Type Area Welder Journeyman Device Identifier Shelf Expiration Date Model / Serial / Lot Mediport Pwr Isp 8fr [id number] - [id number] Implanted:Qty: 1 on 04/01/2017 by Adrianne Stewart MD at OR [facility] Right: Chest CR BARD : PERIPHERAL VASCULAR 12/26/2018 [id number] / / [id number] documented as of this encounter Visit Diagnoses Diagnosis Encounter for screening mammogram for breast cancer- Primary Screening mammogram for breast cancer documented in this encounter Advance Directives * [...] the patient have Health Care Power of Twisting Frame Operator? Yes, not currently available * Full [...]
--- OUTSIDE RECORDS SUMMARY | 2024-06-08 09:16 | External Medical Summary | Summary of Care ---
Author Name Unknown Organization [facility] Address [address] [place] [address] Phone [phone] Care Team Providers Care Law Firm Consultant Name Role Phone Unavailable Primary Care Provider Unavailabl e Reason for Visit * Reason Onset Date Comments Medication Question 02/03/2024 Encounter Details Date Type Department Care Team (Late st Contact Info) Description 02/03/2024 Telephone [facility] [address] [place] [address] August, Thomas Knapp MD [address], [place] [id number] Medication Question Allergies Active Allergy Reactions Criticality [...] mouth in the morning. 05/09/2020 Active Biotin 91478 MCG Oral Tablet Take by mouth. Active [...] encounter Miscellaneous Notes * Telephone Encounter - Karina Rojas CPhT - 02/04/2024 1:03 PM EDT Pt stating that the previous informed pt that they cannot do a refill for her because she is not longer a pt there. Pt needs a refill on her Lisinopril HCTZ 20-25mg. Please advise and pt doesn't haveappt 03/03/24. Thank you, Karina Rojas CPhT Project Construction Assistant Manager II [facility] 02/04/2024,1:05 [...] Pt aware. Thank You, Patti Hair CPhT Awake Overnight Monitor II [facility] 02/03/2024, 1:34 PM documented in this encounter Plan of Treatment Upcoming Encounters Date Type Department Care Team (Late st Contact Info) Description 03/03/2024 11:20 AM EST [address] [phone] Thomas Chadwick MD [address] [facility] [place] [id number] 10/04/2024 9:00 AM EDT [facility] [place] [address] [facility] [phone] [facility] [address] [facility] [place] [id number] 10/11/2024 12:30 PM EDT Office Visit Hematology/Oncology Kate Toribio [place] [address] [place] [address] Marielos Morris MD [address] [place] [address] Scheduled Procedures Name Priority Associated Diagnoses Date/Ti [...] this encounter Medical Devices Implanted Type Area Top Lift Compresser Device Identifier Shelf Expiration Date Model / Serial / Lot Mediport Pwr Isp 8fr [id number] - [id number] Implanted:Qty: 1 on 04/01/2017 by Adrianne Stewart MD at [facility] Right: Chest CR BARD : PERIPHERAL VASCULAR 12/26/2018 [id number] / / [id number] documented as of this encounter Advance Directives [...] the patient have Health Care Power of Swine Genetics Researcher? Yes, not currently available * Full Code [...]
--- OUTSIDE RECORDS SUMMARY | 2024-06-08 09:16 | External Medical Summary | Summary of Care ---
Author Name Unknown Organization [facility] Address [address] [place] [address] Phone [phone] Care Team Providers Care Home Management Supervisor Name Role Phone Unavailable Primary Care Provider Unavailabl e Reason for Visit * Reason Onset Date Comments Order Request 12/30/2023 Screening mammog carole Encounter Details Date Type Department Care Team (Late st Contact Info) Description 12/30/2023 Telephone [facility] [address] [place] [address] May, Thomas Knapp MD [address], [place] [phone] Order Request (Screening mammogram) Allergies Active Allergy Reactions Criticality Noted Date Comments Sulfamethoxazole-Trimethopr im 01/22/2017 HIVES AND LIP SWELLING documented as of this encounter (statuses as of 12/30/2023) Medications Medication Sig Dispensed Refills Start Date [...] mouth in the morning. 05/09/2020 Active Biotin 59811 MCG Oral Tablet Take by mouth. Active Turmeric 500 MG Oral Capsule Take 1 Capsule by mouth in the morning. Active documented as of this encounter (statuses as of 12/30/2023) Active Problems Problem Noted Date Diagnosed Date Sepsis 05/17/2017 Fever 05/11/2017 Diarrhea 05/11/2017 Hypotension 05/11/2017 Tachycardia 05/07/2017 SOB (shortness of breath) 05/07/2017 Thrush 05/07/2017 Febrile neutropenia 04/20/2017 Moderate malnutrition 04/19/2017 History of Hodgkin's lymphoma 04/09/2017 Lymphoma 04/09/2017 Encounter for antineoplastic chemotherapy 2016 HTN, goal below 140/90 07/01/2014 GERD (gastroesophageal reflux disease) 5 documented as of this encounter (statuses as of 12/30/2023) Immunizations Name Administration Dates Next Due Seasonal [...] encounter Miscellaneous Notes * Telephone Encounter - Asia Ramirez OSA [...] Description 01/06/2024 9:30 AM EDT Imaging Radiology [address] [address] 03/03/2024 11:20 AM EST [facility] [address] [facility] [phone] [facility] [address] [facility] [address] 10/04/2024 9:00 AM EDT Laboratory Laboratory, [place] [address] [facility] [place] [phone] [facility] [address] [place] [address] 10/11/2024 12:30 PM EDT Office Visit Hematology/Oncology Kate Toribio [place] [address] [facility] [place] [phone] Marielos Morris MD [address] [facility] [place] [address] Scheduled Procedures Name Priority Associated Diagnoses Date/Ti [...] this encounter Medical Devices Implanted Type Area Website Project Manager Device Identifier Shelf Expiration Date Model / Serial / Lot Mediport Pwr Isp 8fr [id number] - [id number] Implanted:Qty: 1 on 04/01/2017 by Adrianne Stewart MD at [facility] Right: Chest CR BARD : PERIPHERAL VASCULAR 12/26/2018 [id number] / / [id number] documented as of this encounter Advance Directives [...] the patient have Health Care Power of Barrel Lathe Operator Outside? Yes, not currently available * Full Code [...]
[2024-06-08] MEDS: GADOBUTROL 65ML VIAL IV ONE (12:10)
--- NOTE | 2024-06-08 12:29 | Magnetic Resonance Report ---
MRI OF THE BRAIN WITHOUT AND WITH IV CONTRAST CLINICAL HISTORY: Altered mental status. COMPARISON STUDY: None. TECHNIQUE: Utilizing a 1.5 Shanice magnet and dedicated coil, multiplanar, multiecho imaging of the br ain was performed pre and postcontrast administration. IV administration of Gadavist contrast was un eventful. FINDINGS: There are no foci of restricted diffusion to suggest acute infarct. No acute intracranial h emorrhage, midline shift or mass effect is present. Basal cisterns are patent. There are no extra-axi al collections. Flow-voids for the major intracranial vessels are present. White matter T2 hyperinten se foci suggest mild small vessel disease. Slight dilatation of the lateral ventricles is likely due to mild central atrophy. There is no intracranial mass or pathologic enhancement. IMPRESSION: 1. No acute intracranial findings. 2. No intracranial mass or pathologic enhancement. 3. Mild atrophy and small vessel disease. ACT 112: Negative or not required by law. Electronically signed by: Nader Leonard M.D. 06/08/2024 12:28 PM
--- NOTE | 2024-06-08 13:44 | Neurology Consultation ---
Date of Consultation June 08, 2024 Assessment & Plan (1) Encephalopathy: 69-year-old female patient with PMH of HTN, HLD, type II DM, history of spinal stenosis, Hodgkin's lymphoma status postchemotherapy who has presented to the emergency room yesterday with altered mental status. Plan Suspect AMS is related to significant dehydration. Less likely due to a seizure. EEG can be done as outpatient No evidence of underlying infection infections. Reviewed LP results with no evidence of MEAL MILLER infection. MRI of the brain that shows no acute changes that would explain her symptoms. The patient is currently back to her baseline. Denies any drug abuse or excessive alcohol abuse, stress on importance of abstinence. Can be discharged and followed up with her primary care physician from the neurology standpoint Telehealth Consultation Telehealth Information Telehealth Information: I performed this visit using a real-time telehealth connection between my location and the patients location ([facility]). After connecting through interactive tele-video, patient was identified by name and date of and/or wristband check.Patient (or authorized healthcare agency service representative) was informed that this was a telemedicine visit and it was being conducted confidentially over secure lines. My office door was closed and no one else was present in the room with me.Patient (or authorized healthcare agency service representative) provided consent to proceed with the visit, expressed an understanding of privacy and security of the telemedicine visit, and gave permission to have a hospital agency service representative in the room in order to assist with the visit and to conduct portions of the visit, as needed. I informed the patient (or authorized healthcare agency service representative) that I reviewed their record and presented the opportunity for them to ask any questions regarding the visit today. The patient agreed to participate. History of Present Illness Reason for Consultation: Altered mental status Requesting Physician: Dr Samuel Attending Physician: Jorge Chowdhury MD History of Present Illness 69-year-old female patient with PMH of HTN, HLD, type II DM, history of spinal stenosis, Hodgkin's lymphoma status postchemotherapy who has presented to the emergency room yesterday with altered mental status. The patient tells me that she spoke to her sister over the phone who noticed that she was confused, she did not know the day of the week or what day is it was disoriented, so her sons brought her to the emergency room. Reports drinking a bottle of beer the day before. Caffeinated beverages during yesterday. The patient remembers coming to the hospital remember that she had a spinal tap yesterday today she was up and feeling fine she was alert oriented x 3 was able to carry a conversation, was able to go over her medications, telling me that she has not been taking the gabapentin or oxycodone or the Cymbalta, she took Tylenol because of a headache yesterday. She denies any urinary incontinence, denies any burning in the urine or any upper respiratory illness today she is able to walk and move all 4 extremities has no focal neurological deficits Allergies Allergy/AdvReac Type Severity Reaction Status Date / Time sulfamethoxazole Allergy swelling Verified 06/08/24 08:12 [From Bactrim] of eyes, lips trimethoprim [From Bactrim] Allergy swelling Verified 06/08/24 08:12 of eyes, lips Home Medications Medication Instructions Recorded Confirmed Type atorvastatin 20 mg tablet 20 mg PO PM 05/02/23 06/08/24 History biotin 1,000 mcg chewable tablet 1,000 mcg PO DAILY ##0 05/02/23 06/08/24 History lisinopril 20 1 tab PO QAM 05/02/23 06/08/24 History mg-hydrochlorothiazide 25 mg tablet metformin 500 mg tablet 500 mg PO BID 05/02/23 06/08/24 History multivitamin 1 tab PO QAM 05/02/23 06/08/24 History inulin 2 gram chewable tablet 2 g PO DAILY 06/08/24 06/08/24 History Patient History Medical History (Updated 06/08/24 @ 01:55 by Fransico Guillen MD) History of blood transfusion In setting of cancer/treatment- 2017/2018 History of COVID-19 01/2023 ([facility])- fever, cough, loss of taste/smell > resolved Abnormal pulmonary function test "Resolved" Hx during cancer treatment Spinal stenosis Osteoarthritis History of Hodgkin's lymphoma Dx 2018 Surgical History PONV (postoperative nausea and vomiting) History of left knee replacement History of right knee joint replacement History of appendectomy History of tonsillectomy and adenoidectomy History of cholecystectomy History of laminectomy x2 History of esophagogastroduodenoscopy (EGD) History of colonoscopy History of vascular access device subsequent removal Social History Smoking Status: Former smoker Second Hand Exposure: No; Do You Dip or Chew Tobacco: No; Hx Alcohol Use: Yes Hx Substance Use: No Preferred Language: Turkmen Communication Ability: Effective Streetsweeper Operator Required: No Beliefs That Will Affect Care: None Current Living Situation: Alone Current Living Situation Comment: in a condo Feels Safe at Home: Yes Assistive Devices: Walker Review of Systems Constitutional: Patient denies weight loss, fever, chills, and night sweats Eyes: Patient denies change in vision, tearing, pain, and redness ENT: Patient denies pain, bleeding, rhinorrhea, and dysphagia Cardiovascular: Patient denies chest pain, palpitation, dyspnea at rest, and dyspnea with exertion Respiratory: Patient denies shortness of breath, cough, wheezing, and productive cough GI: Patient denies reflux, pain, constipation, and diarrhea Skin: Patient denies rash, dryness, and itching Allergies/Immune System: Patient denies rhinorrhea, seasonal allergies, reaction to current MEDS, and joint swelling Endocrine: Patient denies weight loss, weight gain, temperature intolerance, and excessive thirst Neurological: All negative unless mentioned in the HPI Physical Exam General Constitutional: Appearance normally developed Head and face: normocephalic and atraumatic Eyes: no ptosis, no anisocoria, and no dysconjugate gaze Respiratory: normal effort Cardiovascular: regular rhythm and regular rate Abdomen: non distended Skin: no rashes, lesions, or ulcers noted Psychiatric: normal judgement and insight, normal mood, and normal affect NEUROLOGIC EXAMINATION: Mental Status:alert, oriented to time, place, person, normal recent memory, normal remote memory, normal attention span, normal concentration, normal language and normal fund of knowledge Cranial Nerves: CN 2 - no visual defect on confrontation and pupils round, equal, reactive to light CN 3, 4, 6 - extra-ocular movements intact and no nystagmus CN 5 - facial sensation intact CN 7 - no facial asymmetry CN 8 - intact hearing CN 9, 10 - palate symmetric, normal gag CN 11 - good shoulder shrug CN 12 - tongue midline MOTOR: Strength was at least antigravity throughout, Pronator drift was absent and There were no abnormal movements SENSATION: intact and symmetric to pinprick, light touch, vibration and joint position GAIT: stable, no ataxia and can perform tandem walking COORDINATION: no ataxia with finger to nose testing and heel to streeter testing REFLEXES: cannot assess over telemedicine Results & Data Vital Signs (Past 12 Hours) Vital Signs Temp Pulse Pulse Resp BP Pulse Ox Pulse Ox 06/08/24 10:30 96 H 20 113/71 96 06/08/24 07:14 91 H 06/08/24 07:03 88 16 121/59 L 96 06/08/24 03:08 37.0 C 92 H 20 123/62 97 06/08/24 02:24 98 06/08/24 02:06 91 H 17 133/73 97 06/08/24 01:55 36.8 C 102 H 13 118/71 98 O2 Del Method O2 Del Method 06/08/24 10:30 Room Air 06/08/24 07:14 06/08/24 07:03 Room Air 06/08/24 03:08 Room Air 06/08/24 02:24 Room Air 06/08/24 02:06 Room Air 06/08/24 01:55 Room Air Laboratory Results Laboratory Results - last 24 hr 06/07/24 06/07/24 06/07/24 19:10 19:11 20:02 WBC 12.17 H RBC 4.61 Hgb 12.6 Hct 37.0 MCV 80.3 MCH 27.3 MCHC 34.1 RDW Std Deviation 43.8 RDW Coeff of Karen 15.1 H Plt Count 214 MPV 9.2 L Immature Gran % (Auto) Neut % (Auto) Lymph % (Auto) Hartley % (Auto) Eos % (Auto) Baso % (Auto) Neut # (Auto) Lymph # (Auto) Hartley # (Auto) Eos # (Auto) Baso # (Auto) Immature Gran # (Auto) PT 10.6 INR 1.0 APTT 23 PTT Ratio 0.9 VBG pH VBG pCO2 VBG pO2 VBG HCO3 VBG O2 Saturation VBG Base Excess Sodium 134 L Potassium 3.6 Chloride 100 Carbon Dioxide 23 Anion Gap 11 BUN 23 Creatinine 0.82 Est Cr Clr Drug Dosing Not Reportable eGFR 76.43 BUN/Creatinine Ratio 28.0 H Glucose 151 H POC Glucose 155 H Calcium 9.5 Magnesium 1.8 Total Bilirubin 0.7 AST 31 ALT 21 Alkaline Phosphatase 101 Ammonia B-Natriuretic Peptide Total Protein 7.2 Albumin 4.6 Globulin 2.6 Albumin/Globulin Ratio 1.8 Procalcitonin 0.04 Urine Color Urine Appearance Urine pH Ur Specific [place]she[place] Urine Protein Urine Glucose (UA) Urine Ketones Urine Blood Urine Nitrite Urine Bilirubin Urine Urobilinogen Ur Leukocyte Esterase Urine WBC (Auto) Urine RBC (Auto) U Hyaline Cast (Auto) U Epithel Cells (Auto) Urine Bacteria (Auto) Fluid Comment CSF Appearance CSF Color Xanthrochromic CSF WBC CSF RBC CSF Cell Count Tube # CSF Chemistry Tube # CSF Glucose CSF Total Protein Urine Opiates Screen Ur Methadone, Qual Urine Fentanyl Screen Urine Barbiturates Ur Phencyclidine (PCP) U Amphetamin/Meth Scrn MDMA (Ecstasy) Screen U Benzodiazepines Scrn Ur Cocaine Metabolite U Marijuana (THC) Screen Adenovirus (PCR) Not Detected B. pertussis DNA (PCR) Not Detected B.parapertussis DNA PCR Not Detected C. pneumoniae DNA (PCR) Not Detected Coronavirus OC43 (PCR) Not Detected Coronavirus HKU1 (PCR) Not Detected Coronavirus 229E (PCR) Not Detected SARS-CoV-2 (PCR) Not Detected Coronavirus NL63 (PCR) Not Detected Human Metapneumovir PCR Not Detected Influenza Type A (PCR) Not Detected Influenza Type B (PCR) Not Detected M. pneumoniae (PCR) Not Detected Parainfluenza 1 (PCR) Not Detected Parainfluenza 2 (PCR) Not Detected Parainfluenza 3 (PCR) Not Detected Parainfluenza 4 (PCR) Not Detected RSV (PCR) Not Detected Entero/Rhino (PCR) Not Detected 06/07/24 06/08/24 06/08/24 20:03 00:15 02:05 WBC RBC Hgb Hct MCV MCH MCHC RDW Std Deviation RDW Coeff of Karen Plt Count MPV Immature Gran % (Auto) Neut % (Auto) Lymph % (Auto) Hartley % (Auto) Eos % (Auto) Baso % (Auto) Neut # (Auto) Lymph # (Auto) Hartley # (Auto) Eos # (Auto) Baso # (Auto) Immature Gran # (Auto) PT INR APTT PTT Ratio VBG pH VBG pCO2 VBG pO2 VBG HCO3 VBG O2 Saturation VBG Base Excess Sodium Potassium Chloride Carbon Dioxide Anion Gap BUN Creatinine Est Cr Clr Drug Dosing eGFR BUN/Creatinine Ratio Glucose POC Glucose 109 H Calcium Magnesium Total Bilirubin AST ALT Alkaline Phosphatase Ammonia B-Natriuretic Peptide Total Protein Albumin Globulin Albumin/Globulin Ratio Procalcitonin Urine Color Yellow Urine Appearance Cloudy A Urine pH 5.5 Ur Specific [place] 1.020 Urine Protein 1+ H Urine Glucose (UA) Negative Urine Ketones 2+ H Urine Blood 1+ H Urine Nitrite Negative Urine Bilirubin Negative Urine Urobilinogen Negative Ur Leukocyte Esterase Negative Urine WBC (Auto) 0-5 Urine RBC (Auto) 0-2 U Hyaline Cast (Auto) 0-2 U Epithel Cells (Auto) 0-2 Urine Bacteria (Auto) None Seen Fluid Comment CSF Appearance Clear CSF Color Colorless Xanthrochromic No xanthochromia CSF WBC 2.2 CSF RBC 1.1 CSF Cell Count Tube # 3 CSF Chemistry Tube # 1 CSF Glucose 77 H CSF Total Protein 34.1 Urine Opiates Screen Ur Methadone, Qual Urine Fentanyl Screen Urine Barbiturates Ur Phencyclidine (PCP) U Amphetamin/Meth Scrn MDMA (Ecstasy) Screen U Benzodiazepines Scrn Ur Cocaine Metabolite U Marijuana (THC) Screen Adenovirus (PCR) B. pertussis DNA (PCR) B.parapertussis DNA PCR C. pneumoniae DNA (PCR) Coronavirus OC43 (PCR) Coronavirus HKU1 (PCR) Coronavirus 229E (PCR) SARS-CoV-2 (PCR) Coronavirus NL63 (PCR) Human Metapneumovir PCR Influenza Type A (PCR) Influenza Type B (PCR) M. pneumoniae (PCR) Parainfluenza 1 (PCR) Parainfluenza 2 (PCR) Parainfluenza 3 (PCR) Parainfluenza 4 (PCR) RSV (PCR) Entero/Rhino (PCR) 06/08/24 06/08/24 06/08/24 02:15 04:01 08:20 WBC 9.73 RBC 4.19 L Hgb 11.5 L Hct 34.2 L MCV 81.6 MCH 27.4 MCHC 33.6 RDW Std Deviation 44.5 RDW Coeff of Karen 14.9 H Plt Count 188 MPV 9.2 L Immature Gran % (Auto) 0.2 Neut % (Auto) 74.0 Lymph % (Auto) 18.5 Hartley % (Auto) 7.1 Eos % (Auto) 0.1 Baso % (Auto) 0.1 Neut # (Auto) 7.20 H Lymph # (Auto) 1.80 Hartley # (Auto) 0.69 H Eos # (Auto) 0.01 Baso # (Auto) 0.01 Immature Gran # (Auto) 0.02 PT INR APTT PTT Ratio VBG pH VBG pCO2 VBG pO2 VBG HCO3 VBG O2 Saturation VBG Base Excess Sodium 137 Potassium 3.7 Chloride 105 Carbon Dioxide 25 Anion Gap 7 BUN 20 Creatinine 0.78 Est Cr Clr Drug Dosing 67.6 eGFR 81.15 BUN/Creatinine Ratio 25.6 H Glucose 111 H POC Glucose 108 H Calcium 8.7 Magnesium Total Bilirubin AST ALT Alkaline Phosphatase Ammonia 17.0 L B-Natriuretic Peptide 187 H Total Protein Albumin Globulin Albumin/Globulin Ratio Procalcitonin Urine Color Urine Appearance Urine pH Ur Specific [place] Urine Protein Urine Glucose (UA) Urine Ketones Urine Blood Urine Nitrite Urine Bilirubin Urine Urobilinogen Ur Leukocyte Esterase Urine WBC (Auto) Urine RBC (Auto) U Hyaline Cast (Auto) U Epithel Cells (Auto) Urine Bacteria (Auto) Fluid Comment CSF Appearance CSF Color Xanthrochromic CSF WBC CSF RBC CSF Cell Count Tube # CSF Chemistry Tube # CSF Glucose CSF Total Protein Urine Opiates Screen Neg Ur Methadone, Qual Neg Urine Fentanyl Screen Neg Urine Barbiturates Neg Ur Phencyclidine (PCP) Neg U Amphetamin/Meth Scrn Neg MDMA (Ecstasy) Screen Neg U Benzodiazepines Scrn Neg Ur Cocaine Metabolite Neg U Marijuana (THC) Screen Neg Adenovirus (PCR) B. pertussis DNA (PCR) B.parapertussis DNA PCR C. pneumoniae DNA (PCR) Coronavirus OC43 (PCR) Coronavirus HKU1 (PCR) Coronavirus 229E (PCR) SARS-CoV-2 (PCR) Coronavirus NL63 (PCR) Human Metapneumovir PCR Influenza Type A (PCR) Influenza Type B (PCR) M. pneumoniae (PCR) Parainfluenza 1 (PCR) Parainfluenza 2 (PCR) Parainfluenza 3 (PCR) Parainfluenza 4 (PCR) RSV (PCR) Entero/Rhino (PCR) 06/08/24 06/08/24 08:38 12:56 WBC RBC Hgb Hct MCV MCH MCHC RDW Std Deviation RDW Coeff of Karen Plt Count MPV Immature Gran % (Auto) Neut % (Auto) Lymph % (Auto) Hartley % (Auto) Eos % (Auto) Baso % (Auto) Neut # (Auto) Lymph # (Auto) Hartley # (Auto) Eos # (Auto) Baso # (Auto) Immature Gran # (Auto) PT INR APTT PTT Ratio VBG pH 7.42 H VBG pCO2 39 VBG pO2 35 VBG HCO3 25 VBG O2 Saturation 63.9 VBG Base Excess 0.8 Sodium Potassium Chloride Carbon Dioxide Anion Gap BUN Creatinine Est Cr Clr Drug Dosing eGFR BUN/Creatinine Ratio Glucose POC Glucose 115 H Calcium Magnesium Total Bilirubin AST ALT Alkaline Phosphatase Ammonia B-Natriuretic Peptide Total Protein Albumin Globulin Albumin/Globulin Ratio Procalcitonin Urine Color Urine Appearance Urine pH Ur Specific [place] Urine Protein Urine Glucose (UA) Urine Ketones Urine Blood Urine Nitrite Urine Bilirubin Urine Urobilinogen Ur Leukocyte Esterase Urine WBC (Auto) Urine RBC (Auto) U Hyaline Cast (Auto) U Epithel Cells (Auto) Urine Bacteria (Auto) Fluid Comment CSF Appearance CSF Color Xanthrochromic CSF WBC CSF RBC CSF Cell Count Tube # CSF Chemistry Tube # CSF Glucose CSF Total Protein Urine Opiates Screen Ur Methadone, Qual Urine Fentanyl Screen Urine Barbiturates Ur Phencyclidine (PCP) U Amphetamin/Meth Scrn MDMA (Ecstasy) Screen U Benzodiazepines Scrn Ur Cocaine Metabolite U Marijuana (THC) Screen Adenovirus (PCR) B. pertussis DNA (PCR) B.parapertussis DNA PCR C. pneumoniae DNA (PCR) Coronavirus OC43 (PCR) Coronavirus HKU1 (PCR) Coronavirus 229E (PCR) SARS-CoV-2 (PCR) Coronavirus NL63 (PCR) Human Metapneumovir PCR Influenza Type A (PCR) Influenza Type B (PCR) M. pneumoniae (PCR) Parainfluenza 1 (PCR) Parainfluenza 2 (PCR) Parainfluenza 3 (PCR) Parainfluenza 4 (PCR) RSV (PCR) Entero/Rhino (PCR) Diagnostic Findings MRI of the brain done today shows no acute infarcts mild dilatation of the ventricles chronic white matter changes on FLAIR imaging Medications Administered Home Medications Medication Instructions Recorded Confirmed Last Taken atorvastatin 20 mg tablet 20 mg PO PM 05/02/23 06/08/24 06/07/24 biotin 1,000 mcg chewable tablet 1,000 mcg PO DAILY ##0 05/02/23 06/08/24 06/07/24 lisinopril 20 1 tab PO QAM 05/02/23 06/08/24 06/07/24 mg-hydrochlorothiazide 25 mg tablet metformin 500 mg tablet 500 mg PO BID 05/02/23 06/08/24 06/07/24 multivitamin 1 tab PO QAM 05/02/23 06/08/24 06/07/24 inulin 2 gram chewable tablet 2 g PO DAILY 06/08/24 06/08/24 06/07/24 Active Medications Generic Name Dose Route Start Last Admin Trade Name Porterq PRN Reason Stop Dose Admin Insulin Aspart 0 units 06/08/24 00:39 06/08/24 10:17 Insulin Aspart Per Unit Charge SC 07/08/24 00:38 2 units ACHS KP Administration Lisinopril 5 mg 06/08/24 09:00 06/08/24 09:01 Lisinopril 5 Mg Tab PO 07/08/24 08:59 5 mg QAM KP Administration Multivitamins 1 tab 06/08/24 09:00 06/08/24 09:01 Multivitamin Tab PO 07/08/24 08:59 1 tab QAM KP Administration
--- NOTE | 2024-06-08 15:02 | Hospitalist Progress Note ---
Date of Service June 08, 2024 Assessment & Plan (1) Encephalopathy: Plan: Altered mental status Unclear etiology DD: Encephalopathy due to dehydration/syncopal episode/cannot rule out seizure Patient denies any use of drugs, sedating medications at home --MRI Brain: No acute intracranial findings. No intracranial mass or pathologic enhancement. Mild atrophy and small vessel disease. --Head CT:Cerebral atrophy. No acute changes. --VBG showed no hypercarbia --Normal ammonia levels --BioFire negative --UA not suggestive of UTI --EEG pending --Toxicology screen negative --Check TSH, B12 levels --Follow-up CSF studies --Received IV fluids Monitor on telemetry to rule out arrhythmias Appreciate neurology input May need Zio patch as outpatient Likely discharge home tomorrow DM II Update HbA1c Patient does not check her blood glucose levels at home usually Advised to monitor her blood glucose levels Hold metformin Continue insulin while hospitalized Monitor blood glucose levels Other chronic conditions Hypertension Hyperlipidemia Hodgkin's lymphoma S/P Postchemotherapy Continue home medications as able DVT Px SCDs for now CODE STATUS Full code Admission and Anticipated Discharge Date Admission Date: June 07, 2024 Subjective Patient is seen and examined at bedside Mental status seems to be back to baseline Patient unsure of the events at home Discussed with patient's son at bedside Patient denies any headache, change in vision, focal weakness, chest pain, dyspnea, nausea, vomiting, abdominal pain, palpitations No other complaints Review of Systems Review of Systems: All systems reviewed & are unremarkable except as noted in Subjective Physical Exam Physical Exam: Physical Exam: Vitals signs as noted above General Appearance:Moderately built and nourished, no apparent distress Head: normocephalic, Atraumatic Eyes: normal inspection, EOMI Neck: supple, Trachea midline Respiratory/Chest: Normal breath sounds, CTA, No accessory muscle use Cardiovascular: S1, S2, No murmur Abdomen/GI:Soft, Non tender, Bowel sounds present Extremities/Musculoskeletal:normal inspection, no edema Neurologic/Psych:AAOX3, grossly no focal neurological deficits, no neck rigidity Skin: normal color, warm Results & Data Results & Data Vital Signs (Past 12 Hours) Vital Signs Temp Pulse Pulse Resp BP Pulse Ox O2 Del Method 06/08/24 10:30 96 H 20 113/71 96 Room Air 06/08/24 07:14 91 H 06/08/24 07:03 88 16 121/59 L 96 Room Air 06/08/24 03:08 37.0 C 92 H 20 123/62 97 Room Air Laboratory Results Short CBC 06/07/24 06/08/24 Range/Units 19:10 04:01 WBC 12.17 H 9.73 (4.8-10.8) K/ul Hgb 12.6 11.5 L (12.0-16.0) g/dl Hct 37.0 34.2 L (37.0-47.0) % Plt Count 214 188 (130-400) K/uL BMP 06/07/24 06/08/24 19:10 04:01 Sodium 134 L 137 Potassium 3.6 3.7 Chloride 100 105 Carbon Dioxide 23 25 BUN 23 20 Creatinine 0.82 0.78 Glucose 151 H 111 H Calcium 9.5 8.7 Liver Function 06/07/24 Range/Units 19:10 Total Bilirubin 0.7 (0.2-1.0) mg/dl AST 31 (13-39) U/L ALT 21 (7-52) U/L Alkaline Phosphatase 101 (34-104) U/L Albumin 4.6 (3.4-5.0) gm/dl Urine 06/07/24 Range/Units 20:03 Urine Color Yellow Urine Appearance Cloudy A (Clear) Urine pH 5.5 (4.5-7.5) Ur Specific Ewing 1.020 (1.000-1.030) Urine Protein 1+ H (Negative) Urine Glucose (UA) Negative (Negative)
--- NOTE | 2024-06-08 19:10 | Electrocardiogram Report ---
Test Reason : Blood Pressure : */* mmHG Vent. Rate : 103 BPM Atrial Rate : 103 BPM P-R Int : 142 ms QRS Dur : 78 ms QT Int : 356 ms P-R-T Axes : 75 53 56 degrees QTcB Int : 466 ms Sinus tachycardia Cannot rule out Anterior infarct , age undetermined Possible Inferior infarct Abnormal ECG When compared with ECG of 08-May-2023 10:16, No significant change was found Confirmed by Horacio Ayala ([id number]) on 06/08/2024 7:10:25 PM Referred By: REFERRED SELF Confirmed By: Horacio Ayala
[2024-06-08] MEDS: ATORVASTATIN 20 MG TAB PO SCH (20:32)
--- NOTE | 2024-06-09 06:25 | Electroencephalogram ---
EEG Procedure Note Date of Service June 08, 2024 Start / End Times Start Time: 0610 End Time: 0630 Referring Physician Fransico Guillen History A 69 yo F w loss of consciousness and amnesia. EEG performed for evaluation of epileptiform activity. Home Medication List Medication Instructions Recorded Confirmed Type atorvastatin 20 mg tablet 20 mg PO PM 05/02/23 06/08/24 History biotin 1,000 mcg chewable tablet 1,000 mcg PO DAILY ##0 05/02/23 06/08/24 History lisinopril 20 1 tab PO QAM 05/02/23 06/08/24 History mg-hydrochlorothiazide 25 mg tablet metformin 500 mg tablet 500 mg PO BID 05/02/23 06/08/24 History multivitamin 1 tab PO QAM 05/02/23 06/08/24 History inulin 2 gram chewable tablet 2 g PO DAILY 06/08/24 06/08/24 History Inpatient Medication List Atorvastatin Calcium (Atorvastatin 20 Mg Tab) 20 mg PO PM [facility] Stop: 07/08/24 20:59 Last Admin: 06/08/24 20:32 Dose: 20 mg Documented By: TERESA Insulin Aspart (Insulin Aspart Per Unit Charge) 0 units SC [facility]GED WITH [facility] Stop: 07/08/24 00:38 Last Admin: 06/08/24 20:27 Dose: Not Given Documented By: Admin: 06/08/24 17:52 Dose: Not Given Documented By: Admin: 06/08/24 13:56 Dose: 2 units Documented By: Co-signed By: CHARLES Admin: 06/08/24 10:17 Dose: 2 units Documented By: Co-signed By: CHARLES Admin: 06/08/24 02:23 Dose: Not Given Documented By: MANAS Co-signed By: ALEC Lisinopril (Lisinopril 5 Mg Tab) 5 mg PO [facility] Stop: 07/08/24 08:59 Last Admin: 06/08/24 09:01 Dose: 5 mg Documented By: Multivitamins (Multivitamin Tab) 1 tab PO [facility] Stop: 07/08/24 08:59 Last Admin: 06/08/24 09:01 Dose: 1 tab Documented By: Discontinued Medications Gadobutrol (Gadobutrol 65ml Vial) 7 ml IV ONCE ONE Stop: 06/08/24 11:54 Last Admin: 06/08/24 12:10 Dose: 7 ml Documented By: QASIM Sodium Chloride (Nss) 500 mls @ 999 mls/hr IV .Q31M ONE Stop: 06/07/24 20:44 Last Infusion: 06/07/24 21:06 Dose: Infused Documented By: bus and trolley inspecting dispatcher: 06/07/24 20:36 Dose: 999 mls/hr Documented By: MED Sodium Chloride (Nss) 1,000 mls @ 125 mls/hr IV .Q8H KP Stop: 06/08/24 20:14 Last Infusion: 06/08/24 04:59 Dose: Infused Documented By: Infusion: 06/08/24 02:33 Dose: 0 mls/hr Documented By: bus and trolley inspecting dispatcher: 06/07/24 21:21 Dose: 125 mls/hr Documented By: MED Acetaminophen (Ofirmev) 1,000 mg in 100 mls @ 400 mls/hr IV NOW STA Stop: 06/07/24 20:31 Last Infusion: 06/07/24 23:01 Dose: Infused Documented By: Admin: 06/07/24 20:41 Dose: 400 mls/hr Documented By: MED Sodium Chloride (Nss) 1,000 mls @ 60 mls/hr IV .[id number] ONE Stop: 06/08/24 16:06 Last Infusion: 06/08/24 14:17 Dose: Infused Documented By: Admin: 06/08/24 00:33 Dose: 60 mls/hr Documented By: MED Ioversol (Optiray 320 100ml) 100 ml IV ONCE ONE Stop: 06/07/24 22:56 Last Admin: 06/07/24 22:56 Dose: 93 ml Documented By: BINDU Miscellaneous (Patient's Height &/Or Weight Needed) 1 each N/A NOW STA Stop: 06/08/24 01:11 Last Admin: 06/08/24 02:08 Dose: 1 each Documented By: MED Ondansetron HCl (Ondansetron Inj 2 Mg/Ml 2 Ml Vial) 4 mg IV NOW STA Stop: 06/07/24 20:15 Last Admin: 06/07/24 20:33 Dose: 4 mg Documented By: MED Ondansetron HCl (Ondansetron Inj 2 Mg/Ml 2 Ml Vial) 4 mg IV NOW STA Stop: 06/07/24 21:37 Last Admin: 06/07/24 21:50 Dose: 4 mg Documented By: MED Description This is a 21 electrode EEG with a single channel dedicated to limited EKG. The electrodes were placed in accordance with the International 10-20 system. REPORT: At the onset of the EEG, the patient is awake. The background activity consist of 10-11 Hz, persistent, posteriorly dominant, moderate amplitude, symmetric and rhythmic activity that is reactive to eye opening. Anteriorly, it consist of a mixture of low voltage indeterminate activity and 15-25 Hz, persistent, low amplitude, symmetric and rhythmic activity. Stepwise intermittent photic stimulation (1-21 Hz) does not induce any abnormalities. Drowsiness is characterized by low amplitude mixed frequency activity, roving eye movements, and decreased eye blinking and muscle artifact. Interpretation IMPRESSION: This is a normal awake and drowsy EEG. There is no evidence of focal slowing or epileptiform activity.
[2024-06-09 07:14] LABS: Hematocrit (blood only) 34.7 % (37.0-47.0); Hemoglobin 11.6 g/dl (12.0-16.0); Mean Corpuscular Hemoglobin 27.6 pg (25.0-34.0); Mean Corpuscular Hgb Conc 33.4 g/dL (32.0-36.0); Mean Corpuscular Volume 82.4 fL (80.0-100.0); Mean Platelet Volume 9.3 fL (9.4-12.4); Platelet Count 178 K/uL (130-400); RDW Coefficient of Variation 15.3 % (11.5-14.5); RDW Standard Deviation 46.2 fL (36.4-46.3); Red Blood Count 4.21 M/uL (4.20-5.40); White Blood Count 6.45 K/ul (4.8-10.8)
[2024-06-09 07:27] LABS: Estimated Average Glucose 103 mg/dl; Hemoglobin A1C 5.2 % (4.5-5.6)
[2024-06-09 07:29] LABS: BUN Creatinine Ratio 29.6 (10-20); Calcium 8.7 mg/dl (8.6-10.3); Creatinine Clr Calc Pharmacy 65.7 ml/min; Potassium 3.8 mmol/L (3.5-5.1)
[2024-06-09 07:45] LABS: Thyroid Stimulating Hormone 1.579 uIu/ml (0.300-4.500)
[2024-06-09 07:56] VITALS: PULSE 88; RESP 20; TEMP 98.4; O2SAT 95
--- NOTE | 2024-06-09 09:58 | Discharge Summary ---
Date of Service June 09, 2024 Admission HPI Per Admitting Provider History obtained from patient, family, and records. Limited history from patient secondary to disorientation. Medical history significant for hypertension, hyperlipidemia, DM2 on oral medications, GERD, Hodgkin's lymphoma status postchemotherapy, recent back surgery. Recent confinement under Orthopedics spine service 3 weeks ago for LSS status post decompression surgery. Patient discharged on oxycodone and tramadol as needed medications. Hemoglobin 9.8 at time of discharge. Patient noted to be confused and disoriented on day of presentation. Denies headache symptoms, chest pain, SOB. Mild achy right-sided abdominal pain. No unusual back pain. Patient not sure about appetite. 1 bottle of beer the previous day. Denies abuse. Patient noted to have blood on the lips but no tongue biting. Patient not sure how injury happened. Patient brought to ER for evaluation. Medical History as above Surgical History : Back surgery, breast biopsy, lymph node biopsy, vascular procedures, appendectomy, knee surgeries, tonsillectomy/adenoidectomy, cholecystectomy Family History : Hypertension Personal/Social history : Non-smoker, occasional EtOH intake, retired dental phlebotomist lab assistant Admission Exam Per Admitting Provider GENERAL: Disoriented, comfortable, no respiratory distress SKIN: Pallor, warm HEENT: Bespectacled, pale palpebral conjunctivae, no ptosis, dry buccal mucosa NECK : Supple, no tenderness CHEST : CTA, no tenderness HEART : RRR, no obvious murmurs ABDOMEN: Some distention, nontender EXTREMITIES : No LE swelling/tenderness, palpable pulses, no other conspicuous deformities noted NEUROLOGIC : Disoriented, no facial asymmetry, gait and stance not assessed Principal Diagnosis Encephalopathy Discharge Exam Constitutional + well hydrated; no acute distress Eyes PERRL, conjunctivae normal, anicteric sclerae ENMT external ear and nose normal, oropharynx normal Respiratory normal respiratory effort, lungs clear to auscultation Cardiovascular Rate/Rhythm: regular rate and regular rhythm Gastrointestinal (Abdomen) normal bowel sounds, soft, nontender, no hepatosplenomegaly Musculoskeletal no cyanosis or clubbing, extremities motor strength 5/5 Neurologic PERRL, EOMI, accommodation nl, no face palsy, no dysarthria Psychiatric A+Ox3, euthymic affect Discharge Data Allergies Allergy/AdvReac Type Severity Reaction Status Date / Time sulfamethoxazole Allergy swelling Verified 06/08/24 08:12 [From Bactrim] of eyes, lips trimethoprim [From Bactrim] Allergy swelling Verified 06/08/24 08:12 of eyes, lips Consultations 06/08/24 10:04 Consult Neurology Routine Ordered Studies 06/07/24 19:01 CT head/brain wo con Stat 06/07/24 22:24 CT Abd and Pelvis [CT abd pelvis IV con only] Stat 06/08/24 10:04 MRI Brain [MR brain wo/w con] Urgent Hospital Course (1) Encephalopathy: Altered mental status Unclear etiology DD: Encephalopathy due to dehydration/syncopal episode Patient denies any use of drugs, sedating medications at home All workup negative --MRI Brain: No acute intracranial findings. No intracranial mass or pathologic enhancement. Mild atrophy and small vessel disease. --Head CT:Cerebral atrophy. No acute changes. --VBG showed no hypercarbia --Normal ammonia levels --BioFire negative --UA not suggestive of UTI --EEG normal --Toxicology screen negative --TSH normal --CSF unremarkable Considering patient lives alone, I counseled patient to keep a home Considering patient lives alone, I counseled patient and son to keep a home BP log and blood glucose log for PCP incase BP changes/BG changes may be contributory PCP to arrange zio patch testing to assess for arrhythmias DM II HbA1c 5.2 On metformin at home Provided DM education Patient to keep home BG log for PCP Prescription given for glucometer/strips/lancets Total Time Total Time Spent Total Time Spent (In Minutes): 50 Total Time Includes: Examination of the Patient, Discharge Planning, Medication Reconciliation and Other Discharge Plan Discharge Items Patient Disposition: Home - Self-Care Reason For Visit: AMS Discharge Diagnosis: Encephalopathy Activity: Resume your previous activity Non-emergency contact: Primary Care Provider Call non-emergency contact if: you have any medication questions Follow-up/Referrals: Thomas Chadwick MD [Primary Care Provider] - (Date & Time 06/16/2024 12:40 PM Provider: Thomas Chadwick MD [facility], [facility] ) Diet: Carb Consistent or DM2, Heart Healthy and Low Sodium (2gm) Addtl Attending Provider Instructions: Mrs Butler You were hospitalized and evaluated for altered mental status. No new abnormalities were noted at this time. Please monitor your Blood pressure and blood glucose at home and keep a log for your Family Doctor. Your Doctor can arrange Zio patch testing/Holter monitor Please ensure follow up with your Family Doctor. It was a pleasure taking care of you Pending Studies at Discharge: No Stand-Alone Forms: My [facility], Smoking Cessation Medications and DC Order Prescriptions: Continued multivitamin Tablet 1 tab PO QAM metformin 500 mg Tablet 500 mg PO BID atorvastatin 20 mg Tablet 20 mg PO PM lisinopril-hydrochlorothiazide 20-25 mg Tablet 1 tab PO QAM biotin 1,000 mcg Tablet,Chewable 1,000 mcg PO DAILY Qty: 0 inulin 2 gram Tablet,Chewable 2 g PO DAILY Discharge Orders: Discharge Order (Routine); Ordered 06/09/24 Ordered By: Anya Villa Admission Data Admit Date/Time: 06/07/24 23:35 Attending Provider: Anya Villa I. Admit Provider: Fransico Guillen Primary Care Provider: Thomas Chadwick Other Providers: Rodolfo Ritchie; Jorge Chowdhury Other Interventions: Discharge Summary Assessment (RN) Last Done: 06/09/24 10:52
[2024-06-09 10:53] VITALS: BP 104/64
== END 2024-06-09 12:13 | disposition home or self-care (01) ==
LOC: ED 18:50 → EDINP 18:50 → SUATTDRO 23:35 → 2N 06-08 00:39